=== PATIENT | female | born 1950 | race Caucasian/White ===

== ENCOUNTER 2020-10-05 12:08 | Outpatient (REF) | payer MEDICARE, SELFPAY ==
--- NOTE | 2020-10-05 | MM_ITS ---
EXAMINATION: MM SCREENING DIGITAL BREAST TOMOSYNTHESIS, BILATERAL CLINICAL INFORMATION: Screening. Asymptomatic. No prior surgery. The lifetime risk of breast cancer based on the Tyrer-Cuzick Model is 3%. COMPARISON: Mammography: 02/22/2019, 02/18/2018, 02/17/2017 TECHNIQUE: Digital breast tomosynthesis is performed in both the craniocaudal and mediolateral oblique views along with computer-aided detection (CAD). Synthesized 2D images are generated from the tomosynthesis. Additional bilateral exaggerated CC views are provided. FINDINGS: There are scattered areas of fibroglandular density (ACR BI-RADS breast composition Category b). The right breast is unremarkable. There is no interval mass or architectural abnormality or developing density pressures calcifications. The bilateral axilla and skin contours are unremarkable. The left MLO tomography shows some focal radiating lines along posterior nipple line 6 cm from nipple. No correlate on CC view. Patient will be recalled to exclude architectural abnormality. MM/MM tomosynthesis screening BI IMPRESSION: 1. Left: Question early architectural changes mid left breast limited to MLO view, possibly artifact. 2. Right: No mammographic evidence of malignancy. ASSESSMENT: BI-RADS 0: Incomplete - Need Additional Imaging Evaluation RECOMMENDATION: 1. Additional views of the left breast (3-D spot MLO, 3-D ML). 2. Targeted ultrasound if warranted after review of the additional views. 3. Radiology department staff will contact the patient for additional imaging. This patient's information was entered into a reminder system with a target due date for their next mammogram.
== END 2020-10-05 12:09 | disposition home or self-care (01) ==
LOC: HO.MAMMO 12:08
PROVIDERS: PCP Family Medicine; Visit Provider Family Medicine
DX: Z12.31 Encounter for screening mammogram for malignant neoplasm of breast (principal)
CPT/HCPCS: 77063; 77067

== ENCOUNTER 2020-10-15 09:27 | Outpatient (REF) | payer MEDICARE, SELFPAY ==
--- NOTE | 2020-10-15 | MM_ITS ---
EXAMINATION: MM DIAGNOSTIC DIGITAL BREAST TOMOSYNTHESIS, LEFT CLINICAL INFORMATION: Recall from screening for question of early architectural changes mid left breast limited to MLO view, possibly summation artifact. No correlate on CC view. TC score 3%. COMPARISON: Mammography: 10/05/2020, 02/22/2019 TECHNIQUE: Digital breast tomosynthesis is performed. 2D images are generated from the tomosynthesis. The following views are obtained: Spot MLO, standard ML, spot ML. FINDINGS: There are scattered areas of fibroglandular density (ACR BI-RADS breast composition Category b). Additional views show no architectural abnormality. There is no mass or developing density. Results are discussed with the patient at time of visit, using an deaf interpreter. MM/MM tomosynthesis added views L IMPRESSION: Additional views are unremarkable. No significant changes from prior studies. ASSESSMENT: BI-RADS 1: Negative RECOMMENDATION: Routine annual mammography screening. This patient's information was entered into a reminder system with a target due date for their next mammogram.
== END 2020-10-15 09:28 | disposition home or self-care (01) ==
LOC: HO.MAMMO 09:27
PROVIDERS: PCP Family Medicine; Visit Provider Family Medicine
DX: R92.8 Other abnormal and inconclusive findings on diagnostic imaging of breast (principal)
CPT/HCPCS: 77061; 77062; 77065; 77066

== ENCOUNTER 2021-03-07 12:46 | Outpatient (REF) | payer MEDICARE, SELFPAY ==
--- NOTE | ~2021-03-07 | XR_ITS ---
EXAMINATION: XR LUMBOSACRAL SPINE WITH OBLIQUES CLINICAL INFORMATION: Low back pain COMPARISON: None TECHNIQUE: 5 views of the lumbar spine FINDINGS: There are 5 nonrib-bearing lumbar-type vertebral bodies. No acute visible fracture or dislocation. Mild dextrocurvature of the thoracolumbar spine. Mild multilevel degenerative changes with disc space narrowing, osteophyte formation, and lumbar spine facet arthropathy. Vertebral body heights and disc spaces are otherwise maintained. Posterior elements are intact. Paraspinal soft tissues are unremarkable. Bowel gas is unremarkable. Atherosclerotic calcifications of the aorta. Phlebolith are noted. XR/XR lumbar spine 4V min IMPRESSION: 1. No acute visible fracture or dislocation. 2. Multilevel degenerative changes with dextrocurvature of the thoracolumbar spine.
== END 2021-03-07 12:47 | disposition home or self-care (01) ==
LOC: HO.XRAY 12:46
PROVIDERS: PCP Family Medicine; Visit Provider Family Medicine
DX: M54.5 Low back pain (principal)
CPT/HCPCS: 72110

== ENCOUNTER → 2021-03-18 12:49 | Outpatient (BNVA) | payer MEDICARE, SELFPAY | PROVIDERS: PCP Family Medicine; Visit Provider Surgery | DX: N64.9 Disorder of breast, unspecified (principal) | CPT/HCPCS: 99202 ==

== ENCOUNTER 2021-04-18 12:28 | Outpatient (REF) | payer MEDICARE, SELFPAY ==
[2021-04-18 12:37] VITALS: BP 166/65; PULSE 69; RESP 16; TEMP 36.6; O2SAT 99
[2021-04-18 12:51] VITALS: BMI 24.7
--- NOTE | 2021-04-18 13:28 | W.PM.OPN ---
Operative Note Operative Note Date of Service: 04/18/21 Narrative: Preop diagnosis: Left nipple ulcerating lesion Postop diagnosis: The same Procedure: Biopsy, incisional, of ulcerating lesion, left nipple under local anesthesia Surgeon: Charanjit Mathews MD The patient is a 17-year-old female with note of an ulcerating lesion on the nipple, about 2 cm in size. This had been going on for about 3 months she says. She understood technique of biopsy under local anesthesia. She was aware of the risks, benefits, and alternatives. She was brought to the minor procedure room and placed supine. The area of the nipple the left was prepped and draped. Again as described on the progress notes, she had an ulcerating nipple lesion. about 2 cm. I infiltrated planned area of excisional biopsy using lidocaine 1%. I then proceeded to do a wedge biopsy of the lesion, about 5 mm in size and this was sent as a specimen. I reapposed the incision with interrupted absorbable 4-0 sutures. A Band-Aid was then applied She tolerated the procedure well. There were no complications noted. She was instructed wound care. I will see her in the office for a follow-up visit.
--- NOTE | 2021-04-18 13:31 | PM.OP ---
Brief Operative Note Date of Service: 04/18/21 Pre-op diagnosis: Left nipple lesion Post-op diagnosis: same Procedure: Incisional biopsy, left nipple lesion under local anesthesia Surgeon: Charanjit Mathews MD Was an Art Class Model used for this Procedure?: No Estimated blood loss (mL): 1 Pathology: other (Left nipple lesion biopsy) Condition: stable Disposition: other (Home)
== END 2021-04-18 12:29 | disposition home or self-care (01) ==
LOC: HO.MS 12:28
PROVIDERS: PCP Family Medicine; Visit Provider Surgery
PROC: (CPT 19101; principal; 2021-04-18 13:00)
DX: C50.012 Malignant neoplasm of nipple and areola, left female breast (principal)
CPT/HCPCS: 19101; 36415; 88307; 88341; 88342; 88360; 88374

== ENCOUNTER → 2021-04-25 10:47 | Outpatient (BNVA) | payer MEDICARE, SELFPAY | PROVIDERS: PCP Family Medicine; Referring Provider Family Medicine; Visit Provider Surgery | DX: C50.912 Malignant neoplasm of unspecified site of left female breast (principal) | CPT/HCPCS: 99212 ==

== ENCOUNTER 2021-04-29 12:54 | Outpatient (REF) | payer MEDICARE, SELFPAY ==
--- NOTE | ~2021-04-29 | MM_ITS ---
EXAMINATION: MM DIAGNOSTIC DIGITAL BREAST TOMOSYNTHESIS, LEFT CLINICAL INFORMATION: Left nipple biopsy 04/18/2021 positive for moderately differentiated adenocarcinoma (morphologic and in near no phenotypic features are consistent with grade 1-2 invasive ductal carcinoma of the breast. No epidermal involvement is seen). COMPARISON: Mammography: 10/15/2020, 10/05/2020, 09/24/2018, 02/17/2017 TECHNIQUE: Digital breast tomosynthesis is performed in both the craniocaudal and mediolateral oblique views along with computer-aided detection (CAD). Synthesized 2D images are generated from the tomosynthesis. Additional views are obtained: Left MLO, spot left CC, spot left MLO. FINDINGS: There are scattered areas of fibroglandular density (ACR BI-RADS breast composition Category b). Parenchymal pattern is similar to prior studies. There is no developing density or interval mass or architectural abnormality. No abnormal calcifications. The skin contours are smooth. Results are provided to the patient at time of visit by the technologist. MM/MM tomosynthesis diagnostic LT IMPRESSION: No significant changes from prior exams. No interval suspicious change. ASSESSMENT: BI-RADS 6: Known Biopsy-Proven Malignancy RECOMMENDATION: Continue with surgical services manager management plan.
== END 2021-04-29 12:55 | disposition home or self-care (01) ==
LOC: HO.MAMMO 12:54
PROVIDERS: Visit Provider Surgery
DX: C50.912 Malignant neoplasm of unspecified site of left female breast (principal)
CPT/HCPCS: 77061; 77065

== ENCOUNTER → 2021-05-09 14:39 | Outpatient (BNVA) | payer MEDICARE, SELFPAY | PROVIDERS: PCP Family Medicine; Referring Provider Family Medicine; Visit Provider Surgery | DX: C50.912 Malignant neoplasm of unspecified site of left female breast (principal) | CPT/HCPCS: 99212 ==

== ENCOUNTER → 2021-05-17 13:05 | Outpatient (BNV) | payer MEDICARE, OTHER, SELFPAY | PROVIDERS: PCP Family Medicine; Visit Provider Internal Medicine | DX: C50.912 Malignant neoplasm of unspecified site of left female breast (principal) | CPT/HCPCS: 99205; 99212; 99214; G2211 ==

== ENCOUNTER 2021-05-22 14:25 | Outpatient (REF) | payer MEDICARE, SELFPAY ==
--- NOTE | ~2021-05-22 | MR_ITS ---
EXAMINATION: MR BREAST WITHOUT AND WITH CONTRAST, BILATERAL CLINICAL INFORMATION: Invasive adenocarcinoma of left nipple/breast. COMPARISON: Diagnostic mammography 04/29/2021, and prior TECHNIQUE: Imaging was performed with a dedicated breast coil. Prior to the administration of contrast, bilateral axial T1 and bilateral axial T2 weighted sequences were obtained. After the uneventful administration of?6.5 mL of Gadavist, dynamic contrast-enhanced VIBRANT series through the breasts in the axial plane were performed. Subtracted images were performed and reviewed. A delayed sagittal sequence through both breasts was acquired. Additionally, CAD post-processing, including maximum intensity projections, 3-D reconstructions and kinetic analysis, were performed an independent workstation and reviewed by the interpreting radiologist is a portion of this exam. FINDINGS: The breasts are comprised of scattered fiber glandular densities. The tissue undergoes mild background enhancement. LEFT BREAST: The left nipple is markedly enlarged and hyperemic when compared with the right. The left nipple areolar complex approaches 3 cm in diameter with abnormal skin thickening and enhancement. Abnormal nonmass enhancement extends 1 cm beneath the nipple. The left nipple is also retracted on sagittal reformats. The area is T2 bright with washout enhancement consistent with known invasive adenocarcinoma. On some sequences there appears to be a supernumerary nipple 10 mm medial to the known cancer. This is not present on T1-weighted sequence and is not present on recent mammography indicating an MR artifact. No additional left breast lesions are seen. No retroareolar duct ectasia. The left axillary lymph nodes are morphologically normal. RIGHT BREAST: There is an oval 6 mm T2 dark enhancing right breast mass at 10:00 (series 100 image 63/126) projecting 3.5 cm from the nipple. Mass is indeterminant on MRI.. The mass is closely adjacent a vessel. There is a potential mammographic correlate (10/05/2020 MLO kymberly series image 11/56); a reniform mass with a fatty hilum likely an intramammary node. This appearance is stable compared with 2019. There is no suspicious internal mammary chain or axillary adenopathy. Limited views of the chest and abdomen are unremarkable. MR/MR breast BI wo/w con IMPRESSION: 1. A known invasive breast cancer involving the left nipple areolar complex measuring 3 cm in diameter extending 1 cm beneath the nipple areolar complex with nipple retraction. 2. A 6 mm right breast mass at 10:00 3.5 cm from the nipple. A stable mammographic correlate has the appearance of an intramammary lymph node. ASSESSMENT: LEFT BREAST: BI-RADS Category 6, known malignancy. RIGHT BREAST: BI-RADS Category 2, benign finding. RECOMMENDATIONS: Appropriate surgical management of known left breast cancer.
--- NOTE | 2021-08-13 10:23 | ECG_ITS ---
Test Reason : tachycardia Blood Pressure : / mmHG Vent. Rate : 107 BPM Atrial Rate : 107 BPM P-R Int : 124 ms QRS Dur : 082 ms QT Int : 304 ms P-R-T Axes : 041 -17 074 degrees QTc Int : 405 ms Sinus tachycardia with Premature atrial complexes Abnormal ECG When compared with ECG of 06-FEB-2016 15:30, Premature atrial complexes are now Present Referred By: Milagro Humphrey Electronically Signed By:ELOISA DOWLING MD
== END 2021-05-22 14:26 | disposition home or self-care (01) ==
LOC: HO.MRI 14:25
PROVIDERS: Visit Provider Internal Medicine
DX: C50.912 Malignant neoplasm of unspecified site of left female breast (principal)
CPT/HCPCS: 77049; 93005; A9585

== ENCOUNTER 2021-05-24 06:45 | Day surgery (SDC) | payer MEDICARE, SELFPAY ==
[2021-05-21 10:07] VITALS: BMI 25.4
--- NOTE | 2021-05-23 09:26 | HO.ANESPROP2 ---
HPI - Anesthesia Eval Consult details Narrative: 70yo F for Left Sentinal Node Biopsy, Breast Lumpectomy PMFSH Active Problems Active Problems: All Active Problems (Updated 05/21/21 @ 10:09 by Chiquita Beckham, ZAIN) Invasive ductal carcinoma of left breast (Acute) Nipple lesion (Acute) Past Medical History Medical History COVID-19 vaccine series completed Diabetes High cholesterol Hypertension Invasive ductal carcinoma of left breast Nipple lesion Family History Family History (Updated 05/17/21 @ 15:46 by Doreen Chang, ZAIN) Maternal Aunt Pancreatic cancer Maternal Aunt No problems noted. Maternal Aunt No problems noted. Family/Other Metastatic breast cancer Surgical History Surgical History Hx of left breast biopsy Social History Social History Are you a primary health care facilities inspector to a significant other at home: No Do you presently have visiting nurse or other home services: No Alcohol intake: never Patient Tobacco Use Status: Never used Tobacco Meds Allergies Allergy/AdvReac Type Severity Reaction Status Date / Time penicillin V Allergy Intermediate Rash Verified 05/24/21 07:43 Home Medications Medication Instructions Recorded Confirmed Last Taken Type acetaminophen 650 mg 650 mg PO Q8H 03/18/21 05/21/21 Unknown History tablet,extended release (Tylenol Arthritis Pain) amitriptyline 10 mg tablet 10 mg PO BEDTIME 03/18/21 05/21/21 Unknown History ascorbate calcium (vitamin C) 500 500 mg PO DAILY 03/18/21 05/21/21 Unknown History mg tablet atorvastatin 80 mg tablet 80 mg PO BEDTIME 03/18/21 05/21/21 Unknown History baclofen 10 mg tablet 10 mg PO DAILY 03/18/21 05/21/21 Unknown History cholecalciferol (vitamin D3) 25 25 mcg PO DAILY 03/18/21 05/21/21 Unknown History mcg (1,000 unit) capsule docusate sodium 100 mg capsule 100 mg PO DAILY 03/18/21 05/21/21 Unknown History (DOK) gabapentin 100 mg capsule 100 mg PO TID 03/18/21 05/21/21 Unknown History lisinopril 10 mg tablet 10 mg PO DAILY 03/18/21 05/21/21 Unknown History multivitamin 1 tab PO DAILY 03/18/21 05/21/21 Unknown History omeprazole 20 mg capsule,delayed 20 mg PO DAILY PRN 03/18/21 05/21/21 05/24/21 06:00 History release Exam Exam Date and Time: May 23, 2021 0926 Height,Weight and Vital Signs: Height 5 ft 4 in Weight 67.132 kg Pertinent Lab Results Pertinent Lab Results: Laboratory Tests 05/17/21 05/17/21 13:53 13:53 WBC 7.1 Hgb 13.8 Hct 42.5 Plt Count 253 Sodium 138 Potassium 4.1 Chloride 106 Carbon Dioxide 20 L BUN 17 H Creatinine 0.73 Assessment and Plan Assessment Anesthesia Assessment: Chart Reviewed
[2021-05-24] VITALS (7 sets, daily range): BP systolic 129–154; BP diastolic 61–72; PULSE 70–105; RESP 16–20; TEMP 36.3–36.5; O2SAT 95–100
--- NOTE | ~2021-05-24 | NM_ITS ---
EXAMINATION: NM LYMPH SCINTIGRAPHY CLINICAL INFORMATION: Basal ductal carcinoma of the left breast. COMPARISON: Breast MRI of 05/22/2021 and mammography of 04/29/2021 TECHNIQUE: 4 intradermal injections of 99M technetium tilmanocept for a total dose of 0.5 mCi in 4 divided doses with intradermal injections in the periareolar regions. FINDINGS: No visualization of lymph nodes is seen out to 50 minutes status post injection and this is with breast massage of definite intradermal injections with raising of wheals at injection sites. NM/NM sentinel node w imaging IMPRESSION: Nonvisualization of sentinel lymph nodes.
[2021-05-24] MEDS: Lidocaine 4 % Cream KIT 1 APPL TOPICAL (07:12)
[2021-05-24 07:50] LABS: Glucose, Whole Blood 115 mg/dL (60-115)
[2021-05-24] MEDS: Lactated Ringers 1,000 ML 100 ML IVCONT (07:59)
--- NOTE | 2021-05-24 11:54 | P.OP_ITS ---
Operative Note Operative Note Date of Service: 05/24/21 Narrative: Preop diagnosis: Invasive adenocarcinoma, left breast Postop diagnosis: The same Procedure: Lumpectomy, with excision of the entire nipple-areolar complex, with exploration of left axilla Surgeon: Charanjit Mathews MD Linoleum Layer Helper: JUNIOR Issa student The patient is a 70-year-old female who had a small, ulcerating lesion on the left nipple-areolar complex. Biopsies of this had shown an invasive adenocarci noma. MRI and mammogram did not reveal any breast mass. I had therefore schedule her for lumpectomy to excise the nipple-areolar complex, and sentinel biopsy. I reviewed with her the technique of this procedure. I explained the risks, benefits, and alternatives. She was brought to the operating room and placed supine the table under general anesthesia via laryngeal mask airway. The left arm was abducted to expose the axilla well. The patient had undergone lymph node mapping earlier in the radiologist week. Reviewed the films and there was no axillary lymph node that up with injection of the radionucleotide tracer. A surgical time-out was done. The patient received cefazolin 2 g IV preoperatively. The planned line of incision was infiltrated with lidocaine 1%. I then made a generous elliptical incision on the skin of the left breast surrounding the nipple-areolar complex using a blade 15. This was carried down through the full- thickness of the skin and subcutaneous fat and we dissected through the breast tissue along this incision. We continued to dissect with electrocautery through the breast tissue ensure that we were way past the deeper aspect of the nipple area complex. I palpated the surrounding breast tissue as we deepened the incision make sure that there was no lesion that may be missed. I excised the breast tissue around this nipple or complex and posteriorly, making sure that we had 1st margins. This was sent for immediate gross exam. I had marked the lateral and medial margins with sutures. then observed for been stasis. I cauterized oozing areas. While waiting for the immediate gross examination, I closed the deep breast tissue deck steps sutures. I also closed the deep subdermal layer with Dexon 3-0 interrupted sutures. Skin closure was achieved with a Dexon 4-0 subcuticular running stitch. The incision was about 9.5 cm long. We then changed gloves and we changed the entire instrument set up. I then used the gamma probe to examine the axilla. I scanned the entire axilla and could not really get any elevated readings. We spent an and extended period of time scanning the entire axilla without any hint of any significant readings on the gamma probe. I therefore decided to make a short incision on the skin transversely just lateral to the edge of the pectorals muscle using a blade 15. I carried this incision down to full-thickness of the skin and subcutaneous fat with electrocautery. I then proceeded to do blunt dissection of the fascia to allow me to examine the axillary fat in this area. I again I used the gamma probe to scan this entire area to see if we get any elevated counts. We again spent an extended period time looking for any elevated counts with the gamma probe and there was no area on the axilla that we had any significant readings on the counter. We even switched from a wireless probe to a wired one in case there was any difference with the sensitivities. After some period of time, I irrigated the excision on the axilla. I closed the deep subcutaneous layer with Dexon 3-0 interrupted sutures. Skin closure was achieved with Dexon 4-0 subcuticular running stitch I infiltrated both incisions with lidocaine 1% generously. I then applied Steri-Strips. Thick dressings were applied. The procedure was then completed The patient tolerated procedure well. There were no complications noted. Initial fine counts of sponges and instruments were correct. Limited blood loss about 20 cc The patient was extubated without difficulty and transferred to the recovery room with stable vital signs I will await for the final path report. If this confirms an adenocarcinoma, I will discuss the option of the plan for an axillary dissection on the left axilla with the patient. Breast [place] Node Biopsy Substrate(s) used for sentinel node biopsy in the non-neoadjuvant setting: Radiotracer All palpably suspicious nodes were removed, if present: N/A If clips were placed in pathology-involved nodes, those nodes were identified and removed: N/A General Surg. - Synoptic Notes Breast [place] Node Biopsy Substrate(s) used for sentinel node biopsy in the non-neoadjuvant setting: Radiotracer All palpably suspicious nodes were removed, if present: N/A If clips were placed in pathology-involved nodes, those nodes were identified and removed: N/A
--- NOTE | 2021-05-24 12:08 | PM.OP ---
Brief Operative Note Date of Service: 05/24/21 Pre-op diagnosis: Left breast adenocarcinoma Post-op diagnosis: same Procedure: Lumpectomy, excision of the nipple-areolar complex on the left breast, with exploration of the axilla to identify any sentinel lymph node Surgeon: Charanjit Mathews MD Anesthesia: GLMA Was an Primary Education Professor used for this Procedure?: No Estimated blood loss (mL): 25 Pathology: other (Left breast mass) Condition: stable Disposition: PACU
--- NOTE | 2021-05-24 13:41 | PC.NURSE ---
Discharge instructions provided by Jai Bryant RN with assistance of [facility] [employer]
== END 2021-05-24 13:42 ==
LOC: HO.SSS 06:46
PROVIDERS: PCP Family Medicine; Visit Provider Surgery
PROC: (CPT 19301; 2021-05-24 10:00)
DX: C50.012 Malignant neoplasm of nipple and areola, left female breast (principal); Z17.0 Estrogen receptor positive status [ER+]
CPT/HCPCS: 19301; 17999; 78195; 82947; 88307; 88329; 88341; 88342; A9520; J0690; J1100; J2250; J2405; J3010

== ENCOUNTER → 2021-06-05 15:37 | Outpatient (BNVA) | payer MEDICARE, SELFPAY | PROVIDERS: PCP Family Medicine; Referring Provider Family Medicine; Visit Provider Surgery | DX: C50.912 Malignant neoplasm of unspecified site of left female breast (principal) | CPT/HCPCS: 99212 ==

== ENCOUNTER → 2021-07-04 15:36 | Outpatient (BNVA) | payer MEDICARE, SELFPAY | PROVIDERS: PCP Family Medicine; Visit Provider Surgery | DX: C50.012 Malignant neoplasm of nipple and areola, left female breast (principal); Z88.1 Allergy status to other antibiotic agents; Z88.0 Allergy status to penicillin | CPT/HCPCS: 99212 ==

== ENCOUNTER → 2021-08-08 11:22 | Outpatient (BNVA) | payer MEDICARE, SELFPAY | PROVIDERS: Visit Provider Surgery | DX: C50.012 Malignant neoplasm of nipple and areola, left female breast (principal); E11.9 Type 2 diabetes mellitus without complications; I10 Essential (primary) hypertension; E78.00 Pure hypercholesterolemia, unspecified; R53.83 Other fatigue; Z88.1 Allergy status to other antibiotic agents; Z88.0 Allergy status to penicillin; Z79.899 Other long term (current) drug therapy | CPT/HCPCS: 99212 ==

== ENCOUNTER 2021-10-15 15:50 | Outpatient (REF) | payer MEDICARE, SELFPAY ==
--- NOTE | ~2021-10-15 | MM_ITS ---
EXAMINATION: MM SCREENING DIGITAL BREAST TOMOSYNTHESIS, RIGHT CLINICAL INFORMATION: Due for yearly. Recent left lumpectomy and radiation and chemotherapy for left breast cancer. No prior right breast surgery. COMPARISON: Mammography: 10/05/2020, 02/22/2019, 02/18/2018 TECHNIQUE: Digital breast tomosynthesis is performed in both the craniocaudal and mediolateral oblique views along with computer-aided detection (CAD). Synthesized 2D images are generated from the tomosynthesis. FINDINGS: There are scattered areas of fibroglandular density (ACR BI-RADS breast composition Category b). There are no significant masses, abnormal calcifications, or other abnormalities. Parenchymal pattern is similar to prior studies. There is no developing density or architectural abnormality. The axilla and skin contours are unremarkable. No significant changes. MM/MM tomosynthesis screening RT IMPRESSION: No mammographic evidence of malignancy. ASSESSMENT: BI-RADS 1: Negative RECOMMENDATION: Routine annual mammography screening. This patient's information was entered into a reminder system with a target due date for their next mammogram.
== END 2021-10-15 15:51 | disposition home or self-care (01) ==
LOC: HO.MAMMO 15:50
PROVIDERS: Visit Provider Family Medicine
DX: Z12.31 Encounter for screening mammogram for malignant neoplasm of breast (principal)
CPT/HCPCS: 77063; 77067

== ENCOUNTER 2021-11-22 14:12 | Outpatient (REF) | payer MEDICARE, SELFPAY ==
--- NOTE | ~2021-11-22 | MM_ITS ---
EXAMINATION: BONE DENSITOMETRY CLINICAL INDICATION: Hormonal therapy. COMPARISON: None (current study represents initial baseline exam). TECHNIQUE: Using a Nubity DXA System (software version: 13.1) manufactured by [employer], dual-energy x-ray absorptiometry was performed of the lumbar spine and left hip. The images are of good technical quality. Summary results are attached. FINDINGS: AP SPINE L1-L4: BMD 1.025 g/cm2, Z-score 0.3, T-score -1.3, osteopenia. LEFT FEMUR, NECK: BMD 0.895 g/cm2, Z-score 0.6, T-score -1.0, normal. LEFT FEMUR, TOTAL: BMD 0.945 g/cm2, Z-score 0.9, T-score -0.5, normal. IDENTIFIED RISK FACTORS: Menopause. HISTORY OF FRACTURE: None listed. MEDICATIONS: Vitamin D. MM/XR DEXA axial skeleton IMPRESSION: 1. DIAGNOSIS: Osteopenia based on the lowest T-score value of -1.3 in the lumbar spine applying World Health Organization criteria. 2. 10-YEAR FRACTURE RISK PREDICTION, FRAX: Major osteoporotic fracture (clinical spine, forearm, hip or shoulder) 5.0%. Hip fracture 0.5%. 3. Treatment Recommendations: NOF guidelines recommend consideration for treatment in postmenopausal women and men age 50 and older presenting with the following: -A hip or vertebral (clinical or morphometric) fracture. -T-score less than or equal to -2.5 at the femoral neck or spine after appropriate evaluation to exclude secondary causes. -Low bone mass at the hip or spine and a 10-year fracture probability by FRAX of greater than or equal to 3% for hip fracture or greater than or equal to 20% for major osteoporotic fracture based on the [place] adapted WHO algorithm. 4. Other Recommendations: All treatment decisions require clinical judgment and consideration of individual patient factors, including patient preferences, comorbidities, previous drug use, risk factors not captured in the FRAX model (e.g. frailty, falls, vitamin D deficiency, increased bone turnover, interval significant decline in bone density) and possible under or overestimation of fracture risk by FRAX. Additional medical evaluation for secondary cause of low bone mineral density may be appropriate. FUTURE SCAN RECOMMENDATION: People with diagnosed cases of osteoporosis or at high risk for fracture should have regular bone mineral density tests. For patients eligible for Medicare, routine testing is allowed once every 2 years. The testing frequency can be increased to one year for patients who have rapidly progressing disease, those who are receiving or discontinuing medical therapy to restore bone mass, or have additional risk factors.
== END 2021-11-22 14:13 | disposition home or self-care (01) ==
LOC: HO.MAMMO 14:12
PROVIDERS: Visit Provider Internal Medicine
DX: Z13.820 Encounter for screening for osteoporosis (principal); M85.80 Other specified disorders of bone density and structure, unspecified site; Z78.0 Asymptomatic menopausal state; Z79.899 Other long term (current) drug therapy
CPT/HCPCS: 77080

== ENCOUNTER 2021-12-06 14:03 | Outpatient (REF) | payer MEDICARE, SELFPAY ==
[2021-12-11 16:42] LABS: HPV mRNA E6/E7 rflx Not Detected (Not Detected)
== END 2021-12-06 14:04 | disposition home or self-care (01) ==
LOC: HO.LAB 14:03
PROVIDERS: Visit Provider Advanced Practice Midwife
DX: Z01.419 Encounter for gynecological examination (general) (routine) without abnormal findings (principal); Z11.51 Encounter for screening for human papillomavirus (HPV)
CPT/HCPCS: 87624; 88142

== ENCOUNTER 2022-03-17 15:00 | Outpatient (REF) | payer OTHER, SELFPAY ==
--- NOTE | ~2022-03-17 | XR_ITS ---
EXAMINATION: XR SHOULDER, RIGHT XR LUMBAR SPINE CLINICAL INFORMATION: Right shoulder pain and back pain. COMPARISON: Lumbar spine study of March 07, 2021 TECHNIQUE: Three-view lumbar spine and four-view right shoulder. FINDINGS: RIGHT SHOULDER: There is no evidence of acute fracture or dislocation of the right shoulder. Glenohumeral joint is maintained without significant spurring. No calcific tendinitis appreciated. There is mild spurring and narrowing of the right acromioclavicular joint. LUMBAR SPINE: There are 5 non-rib bearing lumbar vertebrae. There is moderate narrowing of the L5-S1 joint space with bilateral facet arthropathy at L5-S1, more significant on the right. No acute fracture, spondylolisthesis, or spondylolysis is appreciated. Degenerative marginal spurring is seen at the L2-L3 and L3-L4 disc space levels. Sacroiliac joints are unremarkable. XR/XR shoulder RT min 2V IMPRESSION: No significant abnormality of the right shoulder appreciated other than some mild degenerative change of the acromioclavicular joint. Degenerative change of the lumbar spine, most significant at the L5-S1 level. Findings are stable compared to study of March 07, 2021.
--- NOTE | ~2022-03-17 | XR_ITS ---
EXAMINATION: XR SHOULDER, RIGHT XR LUMBAR SPINE CLINICAL INFORMATION: Right shoulder pain and back pain. COMPARISON: Lumbar spine study of March 07, 2021 TECHNIQUE: Three-view lumbar spine and four-view right shoulder. FINDINGS: RIGHT SHOULDER: There is no evidence of acute fracture or dislocation of the right shoulder. Glenohumeral joint is maintained without significant spurring. No calcific tendinitis appreciated. There is mild spurring and narrowing of the right acromioclavicular joint. LUMBAR SPINE: There are 5 non-rib bearing lumbar vertebrae. There is moderate narrowing of the L5-S1 joint space with bilateral facet arthropathy at L5-S1, more significant on the right. No acute fracture, spondylolisthesis, or spondylolysis is appreciated. Degenerative marginal spurring is seen at the L2-L3 and L3-L4 disc space levels. Sacroiliac joints are unremarkable. XR/XR lumbar spine 2-3V IMPRESSION: No significant abnormality of the right shoulder appreciated other than some mild degenerative change of the acromioclavicular joint. Degenerative change of the lumbar spine, most significant at the L5-S1 level. Findings are stable compared to study of March 07, 2021.
== END 2022-03-17 15:01 | disposition home or self-care (01) ==
LOC: HO.XRAY 15:00
PROVIDERS: PCP Family Medicine; Visit Provider Family Medicine
DX: M54.50 Low back pain, unspecified (principal); M25.511 Pain in right shoulder
CPT/HCPCS: 72100; 73030

== ENCOUNTER → 2022-03-19 12:04 | Outpatient (BNVA) | payer OTHER, SELFPAY | PROVIDERS: PCP Family Medicine; Visit Provider Surgery | DX: C50.912 Malignant neoplasm of unspecified site of left female breast (principal); Z79.811 Long term (current) use of aromatase inhibitors; Z92.3 Personal history of irradiation; Z92.21 Personal history of antineoplastic chemotherapy | CPT/HCPCS: 99212 ==

== ENCOUNTER → 2022-10-08 13:53 | Outpatient (BNVA) | payer OTHER, SELFPAY | PROVIDERS: PCP Family Medicine; Visit Provider Surgery | DX: C50.912 Malignant neoplasm of unspecified site of left female breast (principal); Z79.811 Long term (current) use of aromatase inhibitors | CPT/HCPCS: 99212 ==

== ENCOUNTER 2022-10-17 14:43 | Outpatient (REF) | payer OTHER, SELFPAY ==
--- NOTE | ~2022-10-17 | MM_ITS ---
EXAMINATION: MM DIAGNOSTIC DIGITAL BREAST TOMOSYNTHESIS, BILATERAL CLINICAL INFORMATION: Due for yearly. Left lumpectomy, radiation, chemotherapy for anterior left breast cancer. COMPARISON: Mammography: 10/15/2021, 04/29/2021, 10/15/2020, 10/05/2020, 02/22/2019 TECHNIQUE: Digital breast tomosynthesis is performed in both the craniocaudal and mediolateral oblique views along with computer-aided detection (CAD). Synthesized 2D images are generated from the tomosynthesis. Additional views are obtained: Left CC, magnification left CC, magnification left ML x2. FINDINGS: There are scattered areas of fibroglandular density (ACR BI-RADS breast composition Category b). There are post therapy changes left breast with mild reduced breast size and minor scarring. Neither breast shows interval mass or architectural abnormality or abnormal calcifications. The axilla are unremarkable. No significant changes. Results are provided to the patient at time of visit by the technologist. MM/MM tomosynthesis diagnostic BI IMPRESSION: -No mammographic evidence of malignancy. -Post therapy changes left breast ASSESSMENT: BI-RADS 2: Benign RECOMMENDATION: Annual bilateral mammography. This patient's information was entered into a reminder system with a target due date for their next mammogram.
== END 2022-10-17 14:44 | disposition home or self-care (01) ==
LOC: HO.MAMMO 14:43
PROVIDERS: Visit Provider Family Medicine
DX: C50.912 Malignant neoplasm of unspecified site of left female breast (principal)
CPT/HCPCS: 77062; 77066

== ENCOUNTER 2023-01-23 12:32 | Outpatient (REF) | payer OTHER, SELFPAY ==
[2023-01-28 06:03] LABS: HPV mRNA E6/E7 rflx Not Detected (Not Detected)
== END 2023-01-23 12:33 | disposition home or self-care (01) ==
LOC: HO.LNP 12:32
PROVIDERS: PCP Family Medicine; Visit Provider Advanced Practice Midwife
DX: Z01.419 Encounter for gynecological examination (general) (routine) without abnormal findings (principal); Z11.51 Encounter for screening for human papillomavirus (HPV)
CPT/HCPCS: 87624; 88142

== ENCOUNTER 2023-04-20 14:43 | Outpatient (AMB) | payer OTHER, SELFPAY ==
--- NOTE | 2023-04-20 15:11 | A.OFFVIS_ITS ---
Intake Vital Signs 04/20/23 15:12 Height 5 ft 4 in Weight 148 lb 9.465 oz BMI 25.5 BP 143/88 H Blood Pressure Location Lt brachial Position Sitting Pulse 70 Intake Visit Reasons: Colonoscopy consult Intake Note: Lacey presents in office as a new.patient for a colonoscopy screening. PT CC: pt reports having constipation , diarrhea pt denies any other GI Issues Composition Worker Required: Yes Composition Worker Language: Turkmen Accompanied by: Self / Same As Patient Allergies penicillin V Allergy (Intermediate, Verified 04/20/23 15:12) Rash HPI Colonoscopy consult HPI Details 72-year-old female with past medical history of cervical intraepithelial neoplasia, left breast CA, hypercholesteremia, hypertension, diabetes, AFib is here today for initial consultation. Patient was sent to us for colorectal screening. Patient currently is having postprandial abdominal cramping and loose stools and then constipation for few days. Patient reports that for the most part she is constipated, however occasional loose stools after eating certain food. Patient denies any melena, hematochezia, unintentional weight loss or ribbon like stools. Patient denies any dyspepsia, dysphagia or odynophagia. PFSH Medical History Atrial fibrillation CHLOE II (cervical intraepithelial neoplasia II) COVID-19 vaccine series completed Diabetes High cholesterol History of left breast cancer Hypertension Invasive ductal carcinoma of left breast Nipple lesion Surgical History H/O LEEP History of lumpectomy of left breast Hx of left breast biopsy Family History Maternal Aunt Pancreatic cancer Maternal Aunt No problems noted. Maternal Aunt No problems noted. Family/Other Metastatic breast cancer Social History Household Members: None Housing: Apartment Are you a primary direct care provider to a significant other at home: No Do you presently have visiting nurse or other home services: No Alcohol intake: former Patient Tobacco Use Status: Never used Tobacco service: No Current occupational status: unemployed Female Reproductive History Menstrual Age of Menarche: 16 Physical Exam Vital Signs: Last Vital Signs Pulse 70 04/20/23 15:12 BP 143/88 H 04/20/23 15:12 BMI result Body Mass Index 25.5 Assessment & Plan Assessment & Plan (1) IBS (irritable bowel syndrome): Code(s): K58.9 - Irritable bowel syndrome without diarrhea Qualifiers: Irritable bowel syndrome type: with both diarrhea and constipation Qualified Code(s): K58.2 - Mixed irritable bowel syndrome Plan: Patient reports occasional postprandial loose stools, however she reports that she is mostly constipated. Patient can start taking MiraLax daily. I will see her in 5 weeks so we can discuss colonoscopy. (2) Screen for colon cancer: Code(s): Z12.11 - Encounter for screening for malignant neoplasm of colon Plan: Patient is constipated for the most part and is unable to move her bowels she also has occasional loose postprandially. Patient can take MiraLax daily and see if she can move her bowels better. I will see her in 5 weeks to re-evaluate and patient can be sent for colonoscopy. Please schedule colonoscopy in the mean time with patient. Currently were scheduling for July. Patient denies any respiratory or cardiac symptoms at this time. We will re-evaluate again in 5 weeks. Patient is agreeable to this plan and verbalizes understanding of instructions. She was given the opportunity to ask questions and all questions answered. Thank you for allowing me to participate in her care Medications: New polyethylene glycol 3350 (Miralax) 17 grams PO DAILY 510 grams 2RF Coding Level of Care Code New Pt Level 3 (37099) Diagnoses IBS (irritable bowel syndrome) K58.2 Irritable bowel syndrome type: with both diarrhea and constipation Screen for colon cancer Z12.11 Time Spent (min) 40 Comment 30 minutes spent with patient and additional 10 minutes spent reviewing her records
[2023-04-20 15:12] VITALS: BP 143/88; PULSE 70; BMI 25.5
== END 2023-04-20 15:39 | disposition home or self-care (01) ==
PROVIDERS: PCP Family Medicine; Visit Provider Nurse Practitioner Family
DX: K58.2 Mixed irritable bowel syndrome (principal); Z12.11 Encounter for screening for malignant neoplasm of colon
CPT/HCPCS: 99203

== ENCOUNTER → 2023-04-20 14:43 | Outpatient (BNVA) | payer OTHER, SELFPAY | PROVIDERS: PCP Family Medicine; Visit Provider Nurse Practitioner Family | DX: Z12.11 Encounter for screening for malignant neoplasm of colon (principal); K58.2 Mixed irritable bowel syndrome | CPT/HCPCS: 99202 ==

== ENCOUNTER 2023-05-26 15:12 | Outpatient (AMB) | payer OTHER, SELFPAY ==
--- NOTE | 2023-05-26 15:18 | A.OFFVIS_ITS ---
Intake Vital Signs 05/26/23 15:19 Height 5 ft 4 in Weight 150 lb 5.684 oz BMI 25.8 BP 121/69 Blood Pressure Location Lt brachial Position Sitting Pulse 70 Intake Visit Reasons: 5 week follow up Intake Note: Lacey presents in office as a est.patient for a 5week f/u for IBS. PT CC: pt reports having constipation/diarrhea pt denies any other GI Issues Dough Mixing Machine Operator Required: Yes Dough Mixing Machine Operator Language: Jewel Hole Cornerer Name: Kathie Accompanied by: Self / Same As Patient Allergies penicillin V Allergy (Intermediate, Verified 05/26/23 15:18) Rash HPI 5 week follow up HPI Details LAST VISIT: IBS (irritable bowel syndrome) Patient reports occasional postprandial loose stools, however she reports that she is mostly constipated. Patient can start taking MiraLax daily. I will see her in 5 weeks so we can discuss colonoscopy. Screen for colon cancer Patient is constipated for the most part and is unable to move her bowels she al so has occasional loose postprandially. Patient can take MiraLax daily and see if she can move her bowels better. I will see her in 5 weeks to re-evaluate and patient can be sent for colonoscopy. Please schedule colonoscopy in the mean time with patient. Currently were scheduling for July. Patient denies any respiratory or cardiac symptoms at this time. We will re-evaluate again in 5 weeks. Patient is agreeable to this plan and verbalizes understanding of instructions. She was given the opportunity to ask questions and all questions answered. ? Thank you for allowing me to participate in her care Plan Medications New polyethylene glycol 3350 (Miralax) 17 grams PO DAILY 510 grams 2RF TODAY'S VISIT Patient is here today for follow-up and to discuss going for colonoscopy. Patient denies any issues with anesthesia in the past. Patient states that she never had colonoscopy in the past. No family history of colorectal cancer. Patient states that her mom had pancreatic cancer. Patient denies any nausea or vomiting. Reports to have occasional constipation and diarrhea. Occasional postprandial loose stools, takes MiraLax every day states that she is able to move her bowels better. Patient denies any history of sleep apnea. Patient is on Eliquis for a headache. Patient denies any cardiac or respiratory symptoms. [facility] Medical History Atrial fibrillation CHLOE II (cervical intraepithelial neoplasia II) COVID-19 vaccine series completed Diabetes High cholesterol History of left breast cancer Hypertension Invasive ductal carcinoma of left breast Nipple lesion Surgical History H/O LEEP History of lumpectomy of left breast Hx of left breast biopsy Family History Maternal Aunt Pancreatic cancer Maternal Aunt No problems noted. Maternal Aunt No problems noted. Family/Other Metastatic breast cancer Social History Household Members: None Housing: Apartment Are you a primary account executive healthcare to a significant other at home: No Do you presently have visiting nurse or other home services: No Alcohol intake: former Patient Tobacco Use Status: Never used Tobacco service: No Current occupational status: unemployed Female Reproductive History Menstrual Age of Menarche: 16 Review of Systems Const Denies weight gain and Denies weight loss ENT Reports no additional complaints, Denies dysphagia and Denies odynophagia Card Reports no additional complaints Resp Reports no additional complaints GI Denies abdominal pain, Denies belching, Denies melena, Denies bloating, Denies change in bowel habits, Denies dysphagia, Denies excessive flatus, Denies dyspepsia, Denies heartburn, Denies diarrhea, Denies loose stools, Denies nausea, Denies odynophagia and Denies vomiting Musc Reports no additional complaints Neuro Reports no additional complaints Psych Reports no additional complaints Endo Reports no additional complaints Physical Exam Vital Signs: Last Vital Signs Pulse 70 05/26/23 15:19 BP 121/69 05/26/23 15:19 BMI result Body Mass Index 25.8 Const General: healthy appearing, no acute distress and well developed Nutritional Appearance: well nourished Orientation/consciousness: patient oriented x3 HEENT Head: Yes normal to inspection, Yes normocephalic and Yes atraumatic Face and sinus: Yes normal facial exam Mouth: Normal oral and palatal mucosa present Throat: Yes posterior oropharynx normal, Yes tonsils normal and Yes uvula midline Eyes General: appearance normal, both eyes and all related structures Neck Neck: Yes normal visual inspection, Yes full ROM and Yes trachea midline Thyroid: Thyroid normal Resp Effort & Inspection: normal respiratory effort, able to speak in complete sentences, no tracheal deviation and symmetric chest movement Auscultation: clear to auscultation bilaterally Cardio Rate: regular rate Heart sounds: S1 normal heart sound present and S2 normal heart sound present GI Inspection: Yes normal to inspection and No distended Palpation (GI): Soft to palpation, not firm, nontender and No hepatosplenomegaly present Auscultation: normal bowel sounds General: Yes no CVA tenderness Back/Spine/Pelvis Back: no CVA tenderness Skin General skin exam: elasticity normal, turgor normal and dry skin Neuro General: patient oriented x3 Psych Appearance: grossly normal Mental Status: mental status grossly normal Speech and movement: Normal speech and movement present Assessment & Plan Assessment & Plan (1) IBS (irritable bowel syndrome): Code(s): K58.9 - Irritable bowel syndrome without diarrhea Qualifiers: Irritable bowel syndrome type: with both diarrhea and constipation Qualified Code(s): K58.2 - Mixed irritable bowel syndrome Plan: Continue low FODMAP diet. Discussed with patient avoiding dietary triggers. Patient can take MiraLax daily. (2) Screen for colon cancer: Code(s): Z12.11 - Encounter for screening for malignant neoplasm of colon Plan: What to expect before during and after the procedure discussed with patient. Patient is to be little bit confused on what she can her medications with. We are booking right now for and of July beginning of August for procedures. Patient will return in 3 weeks before the procedure with her granddaughter who is a phlebotomist medical lab assistant to help her with understanding what to expect before du ring and after the procedure. Please call patient's clinical research monitor for clearance and for management of Eliquis. Patient does not have any cardiac or respiratory symptoms. Patient is agreeable to this plan and verbalizes understanding of instructions. She was given the opportunity to ask questions and all questions answered. Thank you for allowing me to participate in care Medications: New bisacodyl (Dulcolax (bisacodyl)) take 2 tabs at noon the day before your colonoscopy 10 mg (2 x 5 mg) PO ONCE 1 day 2 tabs 0RF Z12.11 - Encounter for screening for malignant neoplasm of colon polyethylene glycol 3350 (Miralax) As directed by gastroenterology department at [facility] 238 grams PO ONCE 238 grams 0RF Z12.11 - Encounter for screening for malignant neoplasm of colon Coding Level of Care Code Est Pt Level 3 (92132) Diagnoses IBS (irritable bowel syndrome) K58.2 Irritable bowel syndrome type: with both diarrhea and constipation Screen for colon cancer Z12.11 Time Spent (min) 30 Comment 20 minutes spent with patient and additional 10 minutes spent reviewing her records
[2023-05-26 15:19] VITALS: BP 121/69; PULSE 70; BMI 25.8
== END 2023-05-26 16:32 | disposition home or self-care (01) ==
PROVIDERS: PCP Family Medicine; Visit Provider Nurse Practitioner Family
DX: K58.2 Mixed irritable bowel syndrome (principal); Z12.11 Encounter for screening for malignant neoplasm of colon
CPT/HCPCS: 99213

== ENCOUNTER → 2023-05-26 15:12 | Outpatient (BNVA) | payer OTHER, SELFPAY | PROVIDERS: PCP Family Medicine; Visit Provider Nurse Practitioner Family | DX: Z01.818 Encounter for other preprocedural examination (principal); K58.2 Mixed irritable bowel syndrome | CPT/HCPCS: 99212 ==

== ENCOUNTER 2023-08-11 09:44 | Day surgery (SDC) | payer OTHER, SELFPAY ==
[2023-08-07 13:56] VITALS: BMI 25.7
--- NOTE | 2023-08-10 10:49 | HO.ANESPROP2 ---
Documented by User: Sara Black NP 08/10/23 12:08 HPI - Anesthesia Eval Consult details Narrative: 72yo F for Colonoscopy Eliquis for afib GI provider requested cardiac clearance - pending [facility] Active Problems Active Problems: All Active Problems (Updated 08/07/23 @ 13:56 by Chiquita Beckham, ZAIN) H/O LEEP (Acute) CHLOE II (cervical intraepithelial neoplasia II) (Acute) History of left breast cancer (Acute) Invasive ductal carcinoma of left breast (Chronic) Nipple lesion (Acute) Past Medical History Medical History (Updated 08/07/23 @ 13:56 by Chiquita Beckham RN) CHLOE II (cervical intraepithelial neoplasia II) History of left breast cancer Atrial fibrillation COVID-19 vaccine series completed High cholesterol Diabetes Hypertension Invasive ductal carcinoma of left breast Nipple lesion Family History Family History Maternal Aunt Pancreatic cancer Maternal Aunt No problems noted. Maternal Aunt No problems noted. Family/Other Metastatic breast cancer Surgical History Surgical History (Updated 07/07/23 @ 16:11 by Milagro Humphrey MD) H/O LEEP History of lumpectomy of left breast Hx of left breast biopsy Social History Household Members: None Housing: Apartment Are you a primary care mgr to a significant other at home: No Do you presently have visiting nurse or other home services: No Alcohol intake: former Patient Tobacco Use Status: Never used Tobacco Are you DNR?: No Advance Directives: No Advance Directives Information Provided: Yes Recently lost weight without trying: Yes How much weight loss: 2-13 pounds Eating poorly because of decreased appetite: No Nutrition screen score: 3 Nutrition Risks: No Nutritional Risk service: No Current occupational status: unemployed Meds Allergies Allergy/AdvReac Type Severity Reaction Status Date / Time penicillin V Allergy Intermediate Rash Verified 07/07/23 15:21 Home Medications Medication Instructions Recorded Confirmed Last Taken Type cholecalciferol (vitamin D3) 25 25 mcg PO DAILY 03/18/21 08/07/23 Unknown History mcg (1,000 unit) capsule docusate sodium 100 mg capsule 100 mg PO DAILY 03/18/21 08/07/23 Unknown History (DOK) multivitamin 1 tab PO DAILY 03/18/21 08/07/23 Unknown History omeprazole 20 mg capsule,delayed 40 mg PO DAILY PRN Acid Reflux 03/18/21 08/07/23 05/24/21 06:00 History release apixaban 5 mg tablet (Eliquis) 5 mg PO BID 09/03/21 08/07/23 Unknown History melatonin 10 mg tablet 10 mg PO BEDTIME PRN Insomnia 12/06/21 08/07/23 Unknown History calcium carbonate 500 mg calcium 500 mg PO BID 08/29/22 08/07/23 Unknown History (1,250 mg) tablet atorvastatin 40 mg tablet 40 mg PO BEDTIME 08/07/23 08/07/23 Unknown History carvedilol 6.25 mg tablet 6.25 mg PO BID 08/07/23 08/07/23 Unknown History gabapentin 300 mg capsule 300 mg PO TID 08/07/23 08/07/23 Unknown History lisinopril 10 mg tablet 10 mg PO DAILY 08/07/23 08/07/23 Unknown History Exam Height,Weight and Vital Signs: Height 5 ft 4 in Weight 68.039 kg Pertinent Lab Results Pertinent Lab Results: Laboratory Tests 07/07/23 15:26 WBC 5.6 Hgb 12.2 Hct 38.4 Plt Count 216 Sodium 139 Potassium 4.2 Chloride 105 Carbon Dioxide 25 BUN 10 Creatinine 0.68 Assessment and Plan Assessment Anesthesia Assessment: Chart Reviewed Documented by User: Ronnie Ace MD 08/11/23 12:43 [facility] Past Medical History Medical History (Updated 08/07/23 @ 13:56 by Chiquita Beckham RN) CHLOE II (cervical intraepithelial neoplasia II) History of left breast cancer Atrial fibrillation COVID-19 vaccine series completed High cholesterol Diabetes Hypertension Invasive ductal carcinoma of left breast Nipple lesion Family History Family History Maternal Aunt Pancreatic cancer Maternal Aunt No problems noted. Maternal Aunt No problems noted. Family/Other Metastatic breast cancer Family history of problems with anesthesia: No Surgical History Surgical History (Updated 07/07/23 @ 16:11 by Milagro Humphrey MD) H/O LEEP History of lumpectomy of left breast Hx of left breast biopsy History of Problems with Anesthesia: No Social History Household Members: None Housing: Apartment Are you a primary care mgr to a significant other at home: No Do you presently have visiting nurse or other home services: No Alcohol intake: former Patient Tobacco Use Status: Never used Tobacco Are you DNR?: No Advance Directives: No Advance Directives Information Provided: Yes Recently lost weight without trying: Yes How much weight loss: 2-13 pounds Eating poorly because of decreased appetite: No Nutrition screen score: 3 Nutrition Risks: No Nutritional Risk service: No Current occupational status: unemployed Meds Allergies Allergy/AdvReac Type Severity Reaction Status Date / Time penicillin V Allergy Intermediate Rash Verified 07/07/23 15:21 Home Medications Medication Instructions Recorded Confirmed Last Taken Type cholecalciferol (vitamin D3) 25 25 mcg PO DAILY 03/18/21 08/07/23 Unknown History mcg (1,000 unit) capsule docusate sodium 100 mg capsule 100 mg PO DAILY 03/18/21 08/07/23 Unknown History (DOK) multivitamin 1 tab PO DAILY 03/18/21 08/07/23 Unknown History omeprazole 20 mg capsule,delayed 40 mg PO DAILY PRN Acid Reflux 03/18/21 08/07/23 05/24/21 06:00 History release apixaban 5 mg tablet (Eliquis) 5 mg PO BID 09/03/21 08/07/23 Unknown History melatonin 10 mg tablet 10 mg PO BEDTIME PRN Insomnia 12/06/21 08/07/23 Unknown History calcium carbonate 500 mg calcium 500 mg PO BID 08/29/22 08/07/23 Unknown History (1,250 mg) tablet atorvastatin 40 mg tablet 40 mg PO BEDTIME 08/07/23 08/07/23 Unknown History carvedilol 6.25 mg tablet 6.25 mg PO BID 08/07/23 08/07/23 Unknown History gabapentin 300 mg capsule 300 mg PO TID 08/07/23 08/07/23 Unknown History lisinopril 10 mg tablet 10 mg PO DAILY 08/07/23 08/07/23 Unknown History Exam Airway Mallampati Class: II TM Dist: >3cm Neck ROM: Full Loose/Missing/Broken Teeth: Yes Assessment and Plan Assessment Anesthesia Assessment: Anesthesia Plan Discussed Final Anesthetic Review Family History of Problems with Anesthesia: No History of Problems with Anesthesia: No NPO: Yes ASA Class: III Final Preanesthetic Review: No Changes in Pt Med Stat, Meds/Allgs Chart Reviewed, Consent Obtained/Reviewed and Anes Risks/Benef Reviewed Patient Risk: Intermediate Procedure Risk: Low Anesthetic Plan Anesthetic Plan: MAC: Disposition: Standard PACU
[2023-08-11 10:12] VITALS: BP 136/73; PULSE 63; RESP 18; TEMP 36.3; O2SAT 97
[2023-08-11] MEDS: Lactated Ringers 1,000 ML 100 ML IVCONT (10:12)
[2023-08-11 10:15] VITALS: BMI 25.7
--- NOTE | 2023-08-11 10:16 | MHC.SHP ---
Pre-Procedural Eval Section A Date of Service: 08/11/23 Section B Chief Complaint: screening Relevant Family History (Specify if Yes): No Relevant Social History: None Present Medications: see Short Stay Collaborative assessment Medical History: Significant History (CHLOE II (cervical intraepithelial neoplasia II) History of left breast cancer Atrial fibrillation COVID-19 vaccine series completed High cholesterol Diabetes Hypertension Invasive ductal carcinoma of left breast Nipple lesion) History of Previous Operations: Relevant previous surgery/procedure and date(s) (H/O LEEP History of lumpectomy of left breast Hx of left breast biopsy) Allergies: Allergies Allergy/AdvReac Type Severity Reaction Status Date / Time penicillin V Allergy Intermediate Rash Verified 07/07/23 15:21 Review of Systems Sugical H&P ROS: Negative: Constitution, Cardiovascular, Respiratory, Neurological, Psychiatric, Hem-Onc, Allergic/Immunologic, Gastrointestinal, Genitourinary, Musculoskeletal, Integumentary, Endocrine and Eyes/Ears/Nose/Throat Exam Surgical H&P Exam: Normal: HEENT, Normal: Heart, Normal: Lungs, Normal: Extremities, Normal: Abdomen, Normal: Skin and Normal: Neurological Plan Diagnosis/Plan: Unchanged I have reviewed the history and physical and performed a pertinent physical examination on my patient. No changes have occurred unless specified. Time Spent With Patient Time: Total time managing care of this patient today ____ minutes.
--- NOTE | 2023-08-11 11:11 | W.PM.OPN ---
Operative Note Operative Note Date of Service: 08/11/23 Narrative: Operative Information Procedure Description: Colonoscopy Indication: screening Anesthesia: MAC COLONOSCOPY Instrument: Olympus variable stiffness pediatric scope 190L Colonoscopy Monitoring: Vital signs and clinical assessment, continuous EKG monitoring, Pulse oximetry, Carbon Dioxide monitoring and blood pressure monitoring were done throughout the procedure. Colon withdrawal time was 8 minutes. Procedure: The patient was placed in the left lateral decubitis position and pre-procedure medications were administered. After a digital rectal examination of the ano-rectum, the video colonoscope was inserted into the rectum and advanced through the colon to the cecum/TI. The colonoscope was slowly withdrawn in a retrograde panoramic fashion and the colon mucosa was carefully examined including a retroflexed view of the rectum. Findings and interventions are described below. Procedure Difficulty: easy Findings: Terminal Ileum-normal Cecum:normal Ascending Colon: normal Transverse Colon -normal Descending Colon:normal Sigmoid Colon: normal Rectum: Retroflexion with small internal hemorrhoids, grade I, 6-7 mm sessile polyp removed with cold snare Anorectum - normal Colon preparation: [place] Bowel Preparation Scale Right colon; 2 Transverse colon: 2 Left colon; 3 (0 = Unprepared colon segment with mucosa not seen due to solid stool that cannot be cleared. 1 = Portion of mucosa of the colon segment seen, but other areas of the colon segment not well seen due to staining, residual stool and/or opaque liquid. 2 = Minor amount of residual staining, small fragments of stool and/or opaque liquid, but mucosa of colon segment seen well. 3 = Entire mucosa of colon segment seen well with no residual staining, small fragments of stool or opaque liquid) Impression and Post Procedure Diagnosis: polyp internal hemorrhoids Plan: High fiber diet leaflet Avoid straining at stool, epsom salts and sitz bath, anusol supps or cream Repeat Colonoscopy in 5-7 years if adenomatous polyp, 10 yrs if hyperplastic or earlier if clinically indicated restart eliquis tomorrow Above findings were reviewed with the patient and relevant handouts were provided if indicated.
[2023-08-11 11:37] VITALS: BP 92/40; PULSE 72; RESP 17; TEMP 36.1; O2SAT 98
[2023-08-11 11:52] VITALS: BP 92/41; PULSE 70; RESP 14; O2SAT 100
[2023-08-11 12:07] VITALS: BP 116/56; PULSE 64; RESP 18; TEMP 36.4; O2SAT 100
== END 2023-08-11 13:00 | disposition home or self-care (01) ==
PROVIDERS: PCP Family Medicine; Visit Provider Internal Medicine Gastroenterology
PROC: 0DJD8ZZ Inspection of Lower Intestinal Tract, Via Natural or Artificial Opening Endoscopic (ICD-10-PCS; CPT 45378; principal; 2023-08-11 11:30)
DX: Z12.11 Encounter for screening for malignant neoplasm of colon (principal); K62.1 Rectal polyp; K64.0 First degree hemorrhoids; K58.2 Mixed irritable bowel syndrome; I48.91 Unspecified atrial fibrillation; E11.9 Type 2 diabetes mellitus without complications; E78.00 Pure hypercholesterolemia, unspecified; I10 Essential (primary) hypertension; N87.1 Moderate cervical dysplasia; Z85.3 Personal history of malignant neoplasm of breast; Z79.01 Long term (current) use of anticoagulants; Z79.899 Other long term (current) drug therapy
CPT/HCPCS: 45385; 88305; J2704

== ENCOUNTER → 2023-08-11 09:44 | Outpatient (BNV) | payer OTHER, SELFPAY | PROVIDERS: PCP Family Medicine; Visit Provider Internal Medicine Gastroenterology | DX: Z12.11 Encounter for screening for malignant neoplasm of colon (principal); D12.8 Benign neoplasm of rectum; K64.0 First degree hemorrhoids | CPT/HCPCS: 45385 ==

== ENCOUNTER 2023-11-17 14:22 | Outpatient (REF) | payer OTHER, SELFPAY ==
--- NOTE | ~2023-11-17 | MM_ITS ---
EXAMINATION: MM DIAGNOSTIC DIGITAL BREAST TOMOSYNTHESIS, BILATERAL CLINICAL INFORMATION: Due for yearly. History of left lumpectomy, radiation, and chemotherapy for anterior left breast cancer in 2020 with nipple areolar complex involvement. This will be the third and final post lumpectomy protocol follow-up. COMPARISON: Mammography: 10/17/2022, 10/15/2021, 04/29/2021, 10/15/2020, 10/05/2020, 02/22/2019. TECHNIQUE: Digital breast tomosynthesis is performed in both the craniocaudal and mediolateral oblique views along with computer-aided detection (CAD). Synthesized 2D images are generated from the tomosynthesis. In addition to standard views, 2-D spot magnification views of the left breast lumpectomy site in the CC and ML projections were also performed. FINDINGS: There are scattered areas of fibroglandular density (ACR BI-RADS breast composition Category b). There are evolving post therapy changes in the left breast with slightly reduced breast size, mild trabecular prominence, and mild skin thickening. Left nipple is not seen. There is mild scarring along the periareolar region. There is also mild scarring in the left axilla from axillary node dissection. No new suspicious abnormality is present in the left breast. There are no masses, regions of architectural distortion, or suspicious calcifications in the right breast. The parenchymal pattern is stable from prior exams. MM/MM tomosynthesis diagnostic BI IMPRESSION: There are no mammographic changes suspicious for malignancy. Similar evolving post therapy changes of the left breast, benign. No clear mammographic evidence of disease recurrence. This concludes 3 year left breast post op surveillance. Patient should resume routine annual bilateral screening mammography. No suspicious findings right breast. ASSESSMENT: BI-RADS BI-RADS 2 - Benign Findings RECOMMENDATION: 1 year F/U Results were provided to the patient at time of visit by the technologist. This patient's information was entered into a reminder system with a target due date for their next mammogram.
== END 2023-11-17 14:23 | disposition home or self-care (01) ==
LOC: HO.MAMMO 14:22
PROVIDERS: PCP Family Medicine; Visit Provider Family Medicine
DX: Z85.3 Personal history of malignant neoplasm of breast (principal)
CPT/HCPCS: 77062; 77066

== ENCOUNTER → 2023-11-17 15:00 | Outpatient (BNV) | payer OTHER, SELFPAY | PROVIDERS: PCP Family Medicine; Visit Provider Radiology Diagnostic Radiology | DX: Z85.3 Personal history of malignant neoplasm of breast (principal) | CPT/HCPCS: 77066; G0279 ==

== ENCOUNTER 2023-11-25 13:15 | Outpatient (AMB) | payer OTHER, SELFPAY ==
--- NOTE | 2023-11-25 15:12 | MHC.OFFVIS ---
Intake Vital Signs 11/25/23 15:17 Weight 150 lb Intake Visit Reasons: one year breast exam Intake Note: This patient presents for a yearly follow-up breast examination assessment. Pt c/o; reports no breast complaints at this time. Oil Field Equipment Mechanic Supervisor Required: Yes Oil Field Equipment Mechanic Supervisor Language: Wildlife Biologist Name: Yelena Information Interpreted: non-clinical & clinical Accompanied by: Self / Same As Patient Allergies penicillin V Allergy (Intermediate, Verified 11/25/23 15:22) Rash Medication List - Last Reconciled 11/25/23 by Charanjit Mathews MD apixaban (Eliquis) 5 mg PO BID atorvastatin 40 mg PO BEDTIME bisacodyl (Dulcolax (bisacodyl)) 10 mg (2 x 5 mg) PO ONCE 1 day calcium carbonate 500 mg PO BID calcium carbonate-vitamin D3 500 mg-10 mcg (400 unit) (Calcium 500 With D) 1 tab PO BID carvedilol 6.25 mg PO BID cholecalciferol (vitamin D3) 25 mcg PO DAILY docusate sodium (DOK) 100 mg PO DAILY gabapentin 300 mg PO TID letrozole 2.5 mg PO DAILY lisinopril 10 mg PO DAILY melatonin 10 mg PO BEDTIME PRN multivitamin 1 tab PO DAILY multivitamin with folic acid 400 mcg (Daily-Yousif (with folic acid)) tabs PO omeprazole 40 mg PO DAILY PRN polyethylene glycol 3350 (Miralax) 238 grams PO ONCE polyethylene glycol 3350 (Gavilax) 17 grams PO DAILY HPI one year breast exam HPI Details She is here for fo llow-up for histor y of left breast i nvasive ductal car cinoma. She had undergone lumpecto my with needle loc alization and sent inel biopsy last S 2020 and was noted to have a T4 N0 cancer at that time. She h ad completed adju vant chemotherapy and radiation to t he left breast. S he is also being f ollowed by the onc ology service. S he denies any new complaints. She s ays she feels well overall. She she denies any proble ms with her previo us lumpectomy site . She has been on hormonal treatmen t with letrozole. She denies any palpable breast m asses or do nipple or skin changes. She does state th at he would underg one laparoscopic c holecystectomy in [place] a few dennis hs ago. [facility] Medical History CHLOE II (cervical intraepithelial neoplasia II) History of left breast cancer Atrial fibrillation COVID-19 vaccine series completed High cholesterol Diabetes Hypertension Invasive ductal carcinoma of left breast Nipple lesion Surgical History Hx laparoscopic cholecystectomy (~09/2023) H/O LEEP History of lumpectomy of left breast Hx of left breast biopsy Family History Maternal Aunt Pancreatic cancer Maternal Aunt No problems noted. Maternal Aunt No problems noted. Family/Other Metastatic breast cancer Social History Household Members: None Housing: Apartment Are you a primary long term acute care registered nurse to a significant other at home: No Do you presently have visiting nurse or other home services: No Alcohol intake: former Patient Tobacco Use Status: Never used Tobacco service: No Current occupational status: unemployed Female Reproductive History Menstrual Age of Menarche: 16 Review of Systems Const Denies chills and Denies fever(s) Card Denies chest pain, Denies dyspnea and Denies dyspnea on exertion Resp Denies cough, Denies dyspnea and Denies dyspnea on exertion GI Denies hematochezia and Denies change in bowel habits Denies hematuria Musc Denies back pain and Denies limited range of motion Neuro Denies focal weakness and Denies convulsions Psych Denies depression and Denies mood swings Physical Exam Const General: comfortable and no acute distress Orientation/consciousness: patient oriented x3 Neck Neck: Yes no lymphadenopathy Chest Other: No palpable breast masses, no nipple or skin changes, no axillary lymphadenopathy Resp Auscultation: clear to auscultation bilaterally Cardio Rhythm: regular rhythm GI Palpation (GI): Soft to palpation, nontender and no guarding Neuro General: patient oriented x3 Assessment & Plan Assessment & Plan (1) History of left breast cancer: Comment: Code(s): Z85.3 - Personal history of malignant neoplasm of breast Plan: She continues to do well after lumpectomy, radiation, and chemotherapy for a T4 N0 invasive ductal carcinoma. There were no palpable breast masses or nipple or skin changes. I have reviewed her mammogram from last week and this does not reveal any new lesions I reminded her to continue doing yearly mammograms. She is also to continue following up with Dr. Humphrey. I will see her again in the office next year after her mammogram. Coding Level of Care Code Est Pt Level 3 (49869) Diagnoses History of left breast cancer Z85.3
== END 2023-11-25 15:48 | disposition home or self-care (01) ==
PROVIDERS: PCP Family Medicine; Visit Provider Surgery
DX: Z85.3 Personal history of malignant neoplasm of breast (principal)
CPT/HCPCS: 99213

== ENCOUNTER → 2023-11-25 13:15 | Outpatient (BNVA) | payer OTHER, SELFPAY | PROVIDERS: PCP Family Medicine; Visit Provider Surgery | DX: Z85.3 Personal history of malignant neoplasm of breast (principal) | CPT/HCPCS: 99212 ==

== ENCOUNTER 2023-12-16 12:02 | Outpatient (REF) | payer OTHER, SELFPAY ==
[2023-12-16 13:56] LABS: Alanine Aminotransferase 17 U/L (0-31); Alkaline Phosphatase 70 U/L (39-117); Anion Gap 13 (12-20); Aspartate Amino Transferase 21 U/L (5-31); Bilirubin Direct 0.2 mg/dL (0.0-0.5); Bilirubin Total 0.4 mg/dL (0.0-1.0); Blood Urea Nitrogen 11 mg/dL (9-16); Calcium 8.7 mg/dL (8.4-10.2); Carbon Dioxide 24 mmol/L (22-29); Chloride 109 mmol/L (96-108); Cholesterol 180 mg/dL (<200); Estimated Glomerular Filt Rate > 60; Glucose Random 150 mg/dL (60-115); HDL Cholesterol 56 mg/dL (>40); LDL Cholesterol Calculated 95 mg/dL (<100); Potassium 3.5 mmol/L (3.3-5.1); Sodium 142 mmol/L (135-145); Total Protein 6.9 g/dL (6.5-8.0); Triglycerides 146 mg/dL (<150)
[2023-12-16 14:00] LABS: Estimated Average Glucose 140 mg/dL; Hemoglobin A1C 148.5835 umol/L; Hemoglobin A1c % 6.5 % (<6.0)
[2023-12-16 14:10] LABS: Creatinine Urine 78.31 mg/dL; Microalbum/Creatinine Ratio Ur 15.3 ug/mg cr (<30)
== END 2023-12-16 12:03 | disposition home or self-care (01) ==
LOC: HO.HHCL 12:02
PROVIDERS: Visit Provider Family Medicine
DX: E11.00 Type 2 diabetes mellitus with hyperosmolarity without nonketotic hyperglycemic-hyperosmolar coma (NKHHC) (principal)
CPT/HCPCS: 36415; 80048; 80061; 80076; 82043; 82570; 83036

== ENCOUNTER 2024-03-23 12:39 | Outpatient (REF) | payer OTHER, SELFPAY ==
--- NOTE | ~2024-03-23 | MM_ITS ---
EXAMINATION: BONE DENSITOMETRY CLINICAL INDICATION: Osteopenia. COMPARISON: Baseline BD dated 11/22/2021. TECHNIQUE: Using a BzzAgent DXA System (software version: 13.1) manufactured by [employer], dual-energy x-ray absorptiometry was performed of the lumbar spine and left hip. The images are of good technical quality. Summary results are attached. FINDINGS: LEFT FEMUR, NECK: Current: BMD 0.827 g/cm2, Z-score 0.2, T-score -1.5, osteopenia. Baseline: BMD 0.895 g/cm2. LEFT FEMUR, TOTAL: Current: BMD 0.934 g/cm2, Z-score 0.9, T-score -0.6, normal, 1.2% decrease from baseline (<5% change is not significant). Baseline: BMD 0.945 g/cm2. AP SPINE L1-L4: Current: BMD 1.039 g/cm2, Z-score 0.4, T-score -1.2, osteopenia, 1.4% increase from baseline (<5% change is not significant). Baseline: BMD 1.025 g/cm2. IDENTIFIED RISK FACTORS: Menopause, osteoporosis, anticonvulsant. HISTORY OF FRACTURE: None listed. MEDICATIONS: Calcium supplements or multivitamin, vitamin D, ERT/SERMS. MM/XR DEXA axial skeleton IMPRESSION: 1. DIAGNOSIS: Osteopenia based on the lowest T-score value of -1.5 in the femoral neck applying World Health Organization criteria. 2. 10-YEAR FRACTURE RISK PREDICTION, FRAX: Not performed in this patient on estrogen or bone building treatments. 3. Treatment Recommendations: NOF guidelines recommend consideration for treatment in postmenopausal women and men age 50 and older presenting with the following: -A hip or vertebral (clinical or morphometric) fracture. -T-score less than or equal to -2.5 at the femoral neck or spine after appropriate evaluation to exclude secondary causes. -Low bone mass at the hip or spine and a 10-year fracture probability by FRAX of greater than or equal to 3% for hip fracture or greater than or equal to 20% for major osteoporotic fracture based on the [place] adapted WHO algorithm. 4. Other Recommendations: All treatment decisions require clinical judgment and consideration of individual patient factors, including patient preferences, comorbidities, previous drug use, risk factors not captured in the FRAX model (e.g. frailty, falls, vitamin D deficiency, increased bone turnover, interval significant decline in bone density) and possible under or overestimation of fracture risk by FRAX. Additional medical evaluation for secondary cause of low bone mineral density may be appropriate. FUTURE SCAN RECOMMENDATION: People with diagnosed cases of osteoporosis or at high risk for fracture should have regular bone mineral density tests. For patients eligible for Medicare, routine testing is allowed once every 2 years. The testing frequency can be increased to one year for patients who have rapidly progressing disease, those who are receiving or discontinuing medical therapy to restore bone mass, or have additional risk factors.
== END 2024-03-23 12:40 | disposition home or self-care (01) ==
LOC: HO.MAMMO 12:39
PROVIDERS: PCP Family Medicine; Visit Provider Internal Medicine
DX: Z13.820 Encounter for screening for osteoporosis (principal); Z78.0 Asymptomatic menopausal state; M85.80 Other specified disorders of bone density and structure, unspecified site
CPT/HCPCS: 77080

== ENCOUNTER 2024-04-08 13:33 | Outpatient (AMB) | payer OTHER, SELFPAY ==
--- NOTE | 2024-04-08 13:51 | MHC.OFFVIS ---
Vital Signs 04/08/24 13:54 Height 5 ft 4 in Weight 153 lb BMI 26.3 BP 116/68 Intake Visit Reasons: POWER PRESS TENDER annual exam/30mins/Chinese Intake Note: 04/06 ascus +hpv 9/ colpo chloe 1-2 08/07 cone bx chloe 1 08/08 neg pap and hpv 09/08 ascus 12/08 colpo 12/10 neg pap and hpv Chemical Waste Management Technician Required: Yes Chemical Waste Management Technician Language: Crackling Press Operator Services: Chemical Waste Management Technician Present (in person) Chemical Waste Management Technician Name: Kamille CHAVEZ Information Interpreted: non-clinical & clinical Checker Cashier: Checker Cashier Present (Kamille CHAVEZ) Accompanied by: Self / Same As Patient Allergies penicillin V Allergy (Intermediate, Verified 04/08/24 14:01) Rash Post menopausal: Yes HPI Comments Details: She is a postmenopausal woman presenting for her annual wool grower examination. She is doing well with no concerns. Attempting to eat a healthy diet with calcium and vitamin D. Limited activity with balance issues. Currently not sexually active in many years. Denies any vaginal dryness or irritation. Last pap smear; 2022, history of LEEP. Last mammogram; 2023. Colonoscopy is UTD. [facility] Medical History CHLOE II (cervical intraepithelial neoplasia II) History of left breast cancer Atrial fibrillation COVID-19 vaccine series completed High cholesterol Diabetes Hypertension Invasive ductal carcinoma of left breast Nipple lesion Surgical History Hx laparoscopic cholecystectomy (~09/2023) H/O LEEP History of lumpectomy of left breast Hx of left breast biopsy Family History Maternal Aunt Pancreatic cancer Maternal Aunt No problems noted. Maternal Aunt No problems noted. Family/Other Metastatic breast cancer Social History Household Members: None Housing: Apartment Are you a primary health care facilities inspector to a significant other at home: No Do you presently have visiting nurse or other home services: No Alcohol intake: former Patient Tobacco Use Status: Never used Tobacco service: No Current occupational status: unemployed Female Reproductive History Menstrual Age of Menarche: 16 Total pregnancies: 2 Full term: 2 Number of Living Children: 1 Date of last pap smear: 01/23/23 (neg pap and hpv) History of abnormal pap smear: Yes (see intake note) Date of Mammogram: 11/17/23 (Birad 2) Date of last Bone Density Screenin03/23/24 Review of Systems Const All systems reviewed & are unremarkable except as noted in HPI and below Reports as per HPI Eyes Reports no additional complaints ENT Reports no additional complaints Card Reports no additional complaints Resp Reports no additional complaints GI Reports as per HPI and Reports no additional complaints Reports as per HPI Musc Reports no additional complaints Skin/Breast Reports as per HPI Neuro Reports no additional complaints Psych Reports no additional complaints Endo Reports no additional complaints Sd/Lymph Reports no additional complaints Aller/Immun Reports no additional complaints Physical Exam Vital Signs: Last Vital Signs BP 116/68 04/08/24 13:54 BMI result Body Mass Index 26.3 Const General: cooperative, healthy appearing, no acute distress, well developed and alert Orientation/consciousness: patient oriented x3 HEENT Head: Yes normal to inspection Eyes General: appearance normal, both eyes and all related structures Neck Neck: Yes normal visual inspection Thyroid: Thyroid normal Chest Chest palpation & inspection: normal inspection of the chest and other (no puckering, dimpling, peau de orange, retraction, discharge, masses) Breast/axilla inspection: normal inspection of the breasts (Left breast post surgical appearance no nipple or areola) Breast/axilla palpation: normal palpation of the breasts Resp Effort & Inspection: normal respiratory effort GI Inspection: Yes normal to inspection Palpation (GI): Soft to palpation Rectal Exam - Female: deferred General: Yes bladder normal to palpation External Female Exam: normal external appearance and normal appearance of the urethra Speculum Exam - Vagina: normal appearance of the vagina, normal palpation, normal vaginal discharge and vagina atrophic Speculum Exam - Cervix: normal appearance of the cervix, normal palpation and Other cervical findings present (Short post LEEP appearance) Bimanual exam- vagina & uterus: normal bimanual exam, normal palpation, uterine size normal, bladder normal to palpation, normal palpation and non-tender Bimanual Exam- Adnexa, other: no masses Skin General skin exam: no rashes or lesions noted Rashes: no rashes Neuro General: patient oriented x3 Cognition (Neuro): normal cognition Extrem General: Yes normal to inspection Psych Attitude: cooperative Thought process: Normal thought process present Assessment & Plan Assessment & Plan (1) Encounter for well woman exam with routine gynecological exam: Code(s): Z01.419 - Encounter for gynecological examination (general) (routine) without abnormal findings Category: Medical Plan Discussed: Current recommendations for pap smears per ASCCP guidelines. Breast awareness, periodic self breast exams and yearly mammogram. Maintain a healthy lifestyle, well balanced diet including Calcium 1,200 mg and Vitamin D 800 IU daily, and routine exercise. Contact the office with any postmenopausal bleeding. Sign up for the patient portal if not already enrolled. Patient verbalizes understanding and agrees to the plan of care. She was given opportunity to ask questions and all questions were answered to the best of my ability. Return to the office 1 year. This note is constructed using voice recognition software. While every effort has been made to ensure accuracy, x ray physician errors may have been included. RTO in 1 year for annual wool grower exam. Coding Level of Care Code Est Pt Prev Care >65y(73925) Diagnoses Encounter for well woman exam with routine gynecological exam Z01.419
[2024-04-08 13:54] VITALS: BP 116/68; BMI 26.3
== END 2024-04-08 14:39 | disposition home or self-care (01) ==
LOC: HO.HWS 13:33
PROVIDERS: PCP Family Medicine; Visit Provider Advanced Practice Midwife
DX: Z01.419 Encounter for gynecological examination (general) (routine) without abnormal findings (principal)
CPT/HCPCS: 99397

== ENCOUNTER → 2024-04-08 13:33 | Outpatient (BNVA) | payer OTHER, SELFPAY | PROVIDERS: PCP Family Medicine; Visit Provider Advanced Practice Midwife ==

== ENCOUNTER 2024-11-25 13:37 | Outpatient (REF) | payer OTHER, SELFPAY ==
--- OUTSIDE RECORDS SUMMARY | 2024-11-25 15:14 | XMS_ITS | Encounter Summary ---
Author Organization [employer] Address [address] [place] [address] Care Team Providers Care Work Order Clerk Name Role Phone Tabitha Gerard MD Primary Care Provider [phone] Ismael Stout MD Unavailable [phone] Milagro Humphrey MD Unavailable [phone] Reason for Visit * Reason Comments Med Refill Encounter Details Date Type Department Care Team (Late st Contact Info) Description 07/22/2024 Refill [facility] [address] [place] [address] Tabitha Gerard MD [address] [place] [address] Acute URI Social History Tobacco Use Types Packs/Day Years Used Date Smoking Tobacco: Never Smokeless Tobacco: Never Depression Answer Date Recorded Patient Health Questionnaire-9 Score 0 12/09/2023 Patient Health Questionnaire-9 Score 0 12/09/2023 Last PHQ-9: Questionnaire Data Not on file 0 12/09/2023 Housing Stability Answer Date Recorded What is your housing situation today? I have gideon miles 12/09/[address] you li ve. Do you have problems with any of the following? None of the above 12/09/2023 Food Insecurity Answer Date Recorded Within the past 12 months, y ou worried that your food would run out before you got money to buy more: Never True 12/09/2023 Within the past 12 months,th e food you bought just didn't last and you didn't have enough money to get more: Never True Transportation Answer Date Recorded In the past 12 months, has l ack of transportation kept you from medical appts, meetings, work or from getting things needed for daily living? No 12/09/2023 Utilities Answer Date Recorded In the past 12 months, has t he electric, gas, oil or water company threatened to shut off services in your home? No 12/09/2023 Depression Answer Date Recorded Patient Health Questionnaire-2 Score 0 12/09/2023 Comments Unknown Sex and Gender Information Value Date Recorded Sex Assigned at Female 07/21/2022 10:14 AM EDT Legal Sex Female 10:14 AM EDT Gender Identity Female 07/21/2022 10:14 AM EDT Sexual Orientation Straight 07/21/2022 10 :14 AM EDT documented as of this encounter Plan of Treatment Upcoming Encounters Date Type Department Care Team (Late st Contact Info) Description 11/30/2024 2:00 PM EDT Office Visit [facility] [address] [place] [address] Tabitha Gerard MD [address] [place] [address] documented as of this encounter Visit Diagnoses Diagnosis Acute URI Acute upper respiratory infections of unspecified site documented in this encounter Additional Health Concerns Assessment Noted Time PHQ-9 Depression Total Score: 0 12/09/19 2:18 PM EDT documented as of this encounter Care Teams Work Order Clerk Relationship Specialty Start Date End Date Tabitha Gerard MD [address] [place] [address] PCP - General Family Medicine 09/21/18 Ismael Stout MD [address] [place] [address] Cardiology 09/07/24 Milagro Humphrey MD [address] [place] [address] Hematology and Oncology 09/09/24 [place] [facility] Orth[facility]ics 09/27/24 documented as of this encounter
--- OUTSIDE RECORDS SUMMARY | 2024-11-25 15:14 | XMS_ITS | Encounter Summary ---
Author Organization [employer] Address [address] [facility] [address] [place] [address] Care Team Providers Care Checkout Supervisor Name Role Phone Tabitha Gerard MD Primary Care Provider [phone] Ismael Stout MD Unavailable [phone] Milagro Humphrey MD Unavailable [phone] Reason for Visit * Reason Comments Med Change Request Encounter Details Date Type Department Care Team ([facility] st Contact Info) Description 11/03/2024 Refill [facility] [address] [place] [address] Tabitha Gerard MD [address] [place], [place] [id number] Acute URI Social History Tobacco Use Types [...] Description 11/30/2024 2:00 PM EDT Office Visit [facility] [address] [place] [address] Tabitha Gerard MD [address] [place] [address] documented as of this encounter Visit Diagnoses Diagnosis Acute URI Acute upper respiratory infections of unspecified site documented in this encounter Additional Health Concerns Assessment Noted Time PHQ-9 Depression Total Score: 0 12/09/19 2:18 PM EDT documented as of this encounter Care Teams Checkout Supervisor Relationship Specialty Start Date End Date Tabitha Gerard MD [address] [place] [address] PCP - General Family Medicine 09/21/18 Ismael Stout MD [address] [place] [address] Cardiology 09/07/24 Milagro Humphrey MD [address] [place] [address] Hematology and Oncology 09/09/24 [place] [facility] Orthopedics 09/27/24 documented as of this encounter
--- OUTSIDE RECORDS SUMMARY | 2024-11-25 15:14 | XMS_ITS | Continuity of Care Document ---
Author Organization [facility]. If a dditional information is needed, contact Health Information Management at [phone] Address [address] [place] [address] Phone Care Team Providers Care Senior Web Applications Developer Name Role Phone Unavailable Unavailable Unavailable Unavailable Unavailable Unavailable Unavailable Unavailable Unavailable Unavailable Unavailable Unavailable Unavailable Unavailable Unavailable Unavailable Unavailable Unavailable Unavailable Unavailable Unavailable Unavailable Unavailable Unavailable Unavailable Unavailable Unavailable Problems History of malignant neoplas m of breast Onset:28-Sep-2023 [id number] Enzyme level - finding Onset:28-Sep-2023 VUONI99 Fever Onset:28-Sep-2023 VUONI99 Disorder of brain Onset:28-Sep-2023 VUONI99 Alkaline phosphatase above r eference range Onset:28-Sep-2023 VUONI99 Cholangiectasis Onset:28-Sep-2023 VUONI99 Hyperbilirubinemia Onset:28-Sep-2023 VUONI99 Mental Status Cognitive function finding 28-Sep-2023 Allergies and Adverse Reactions No Known Allergies(Allergy) Onset: 27-Sep-2023 Medications ibuprofen 600 MG Oral Tablet;600 MILLIGRAM* ORAL Q6H PRN Start:01-Oct-2023 Comments:600 MG PO Q6H PRN As Needed for pain cefdinir 300 MG Oral Capsule;300 MILLIGRAM* ORAL BID Start:01-Oct-2023 Comments:300 MG PO BID pantoprazole 40 MG Delayed Release Oral Tablet [Protonix];40 MILLIGRAM* DAILY 0900 Quantity:1 Regulo Funez MD Start:27-Adn-9814Ods: 024 Status:Discontinued Comments:[id number] Administration Instructions:FORMULARY FOR PRILOSEC 20 MG BID DO NOT CRUSH, CHEW, OR CUT cefdinir 300 MG Oral Capsule;300 MILLIGRAM* ORAL BID Start:30-Sep-2023 Comments:300 MG PO BID 2 ML dexmedeTOMIDine 0.1 MG/ ML Injection [Precedex];Provider Administration Instructions: Use ORANGE top Vial-2-Bag 13mm Adaptor Attach bag to adaptor. Reconstitute medicationby squeezing solution into vial. Squeeze bag topush dissolved medication into bag. SHAKE WELL Final Concentration = 4 mcg/mL Quantity:1 ARDOR Start:29-Sep-2023 Status:Discontinued Comments:Provider Administration Instructions: Use ORANGE top Vial-2-Bag 13mm Adaptor Attach bag to adaptor. Reconstitute medicationby squeezing solution into vial. Squeeze bag topush dissolved medication into bag. SHAKE WELL Final Concentration = 4 mcg/mL Dexamethasone 4 MG/ML Injectable Solution Quantity:1 ARDOR Start:29-Sep-2023 Status:Discontinued neostigmine methylsulfate 0. 5 MG/ML Injectable Solution Quantity:1 ARDOR Start:29-Sep-2023 Status:Discontinued glycopyrrolate 0.2 MG/ML Injectable Solution Quantity:1 ARDOR Start:29-Sep-2023 Status:Discontinued ondansetron 2 MG/ML Injectab le Solution [Zofran] Quantity:1 ARDOR Start:29-Sep-2023 Status:Discontinued 2 ML fentaNYL 0.05 MG/ML Injection Quantity:1 ARDOR Start:29-Sep-2023 Status:Discontinued ceFAZolin 330 MG/ML Injectab le Solution Quantity:1 Luca Pleitez DO Start:29-Sep-2023 Status:Discontinued pantoprazole 40 MG Injection [Protonix];40 MILLIGRAM* DAILY 0900 Quantity:1 LINED99 Start:9-Ctr-2989Vqz:28-Dec-19 Status:Discontinued Comments:[id number] Administration Instructions:-Reconstitute with 10 ml 0.9% NaCl ONLY.-Administer through a dedicated IV line. Ifdedicated IV line is unavailable, contactpharmacist for guidelines.Flush IV line before and after pantoprazoleadministration.- phenylephrine hydrochloride 10 MG/ML Injectable Solution Quantity:1 [id number] Start:29-Sep-2023 Status:Discontinued rocuronium bromide 10 MG/ML Injectable Solution [Zemuron] Quantity:1 [id number] Start:29-Sep-2023 Status:Discontinued midazolam 1 MG/ML Injectable Solution Quantity:1 [id number] Start:29-Sep-2023 Status:Discontinued propofol 10 MG/ML Injectable Suspension;Provider Administration Instructions:FINAL CONCENTRATION = 10 MG/ML Quantity:1 [id number] Start:29-Sep-2023 Status:Discontinued Comments:Provider Administration Instructions:FINAL CONCENTRATION = 10 MG/ML Succinylcholine 20 MG/ML Injectable Solution [Quelicin] Quantity:1 [id number] Start:29-Sep-2023 Status:Discontinued 2 ML fentaNYL 0.05 MG/ML Injection Quantity:1 [id number] Start:29-Sep-2023 Status:Discontinued lidocaine hydrochloride 20 MG/ML Injectable Solution [Xylocaine] Quantity:1 LINED99 Start:29-Sep-2023 BUPivacaine hydrochloride 2. 5 MG/ML Injectable Solution Quantity:1 LINED Start:29-Sep-2023 Status:Discontinued traMADol hydrochloride 50 MG Oral Tablet;50 MILLIGRAM* ORAL Q6H PRN Start:29-Sep-2023 Comments:50 MG PO Q6H PRN As Needed for pain ibuprofen 600 MG Oral Tablet;600 MILLIGRAM* ORAL Q6H PRN Start:29-Sep-2023 Comments:600 MG PO Q6H PRN As Needed for pain ondansetron 2 MG/ML Injectab le Solution [Zofran] Quantity:1 Jose Carrera DO Start:28-Sep-2023 Dexamethasone 4 MG/ML Injectable Solution Quantity:1 Jose Carrera DO Start:28-Sep-2023 Status:Discontinued iopamidol;Provider Administration Instructions: RADIOLOGY USE ONLY Quantity:1 Jose Carrera DO Start:28-Sep-2023 Comments:Provider Administration Instructions: RADIOLOGY USE ONLY propofol 10 MG/ML Injectable Suspension;Provider Administration Instructions:FINAL CONCENTRATION = 10 MG/ML Quantity:1 Jose Carrera DO Start:28-Sep-2023 Status:Discontinued Comments:Provider Administration Instructions:FINAL CONCENTRATION = 10 MG/ML 2 ML fentaNYL 0.05 MG/ML Injection Quantity:1 Jose Carrera DO Start:28-Sep-2023 Status:Discontinued lidocaine hydrochloride 20 MG/ML Injectable Solution [Xylocaine] Quantity:1 Jose Carrera DO Start:28-Sep-2023 Status:Discontinued Succinylcholine 20 MG/ML Injectable Solution [Quelicin] Quantity:1 Jose Carrera DO Start:28-Sep-2023 Status:Discontinued rocuronium bromide 10 MG/ML Injectable Solution [Zemuron] Quantity:1 Jose Carrera DO Start:28-Sep-2023 Status:Discontinued potassium chloride 10 MEQ Extended Release Oral Tablet [Klor-Con];[id number] Administration Instructions:3.8-4.0, give 20 mEq3.5-3.7, give 30 mEq3.3-3.4, give 40 mEq3.0-3.2, give 50 mEq2.6-2.9, give 60 mEq< 2.6, give 80 mEqSEE ADMIN CRITERIA - TAKE WITH FOOD(OSELECPROT) Quantity:0 Jose Carrera DO Start:7-Esb-5360Kur:27-Dec-19 Status:Discontinued Comments:[id number] Administration Instructions:3.8-4.0, give 20 mEq3.5-3.7, give 30 mEq3.3-3.4, give 40 mEq3.0-3.2, give 50 mEq2.6-2.9, give 60 mEq< 2.6, give 80 mEqSEE ADMIN CRITERIA - TAKE WITH FOOD(OSELECPROT) acetaminophen 325 MG Oral Tablet [Tylenol];650 MILLIGRAM* Q4H PRN Quantity:2 Jose Carrera DO Start:9-Vwj-9965Xya:27-Dec-19 Status:Discontinued Comments:[id number] Administration Instructions:Do not exceed 12 tablets in 24 hoursMaximum acetaminophen dose = 4000 mg in 24 hours 100 ML potassium chloride 0. 1 MEQ/ML Injection;[id number] Administration Instructions:* SEE ADMIN CRITERIA *Infusion should not exceed 10 mEq of potassiumevery hour.(If infused via central line may give up to 10mEq of potassium over 30 minutes in emergentcases)OSELECPROT Jose Carrera DO Start:4-Edj-0341Lzg:27-Dec-19 Status:Discontinued Comments:[id number] Administration Instructions:* SEE ADMIN CRITERIA *Infusion should not exceed 10 mEq of potassiumevery hour.(If infused via central line may give up to 10mEq of potassium over 30 minutes in emergentcases)OSELECPROT Magnesium Sulfate 0.325 MEQ/ ML Injectable Solution;[id number] Administration Instructions:Magnesium Protocol - For Patients NOT ABLE totake oral medsSEE ADMIN CRITERIA(OSELECPROT) Jose Carrera DO Start:9-Rno-8147Vxb:27-Dec-19 Status:Discontinued Comments:[id number] Administration Instructions:Magnesium Protocol - For Patients NOT ABLE totake oral medsSEE ADMIN CRITERIA(OSELECPROT) CALCIUM PROTOCOL_CALPROT;[id number] er Administration Instructions:SEE COMMENTSCALL PHYSICIAN BEFORE IMPLEMENTATION ofthe electrolyte replacementand/or before administration of dose ifpatient has one of the following below criteria.Replacement dosage WILL REQUIRE ADJUSTMENT. Quantity:0 Jose Carrera DO Start:8-Gvc-9326Ddo:27-Dec-19 Status:Discontinued Comments:[id number] Administration Instructions:SEE COMMENTSCALL PHYSICIAN BEFORE IMPLEMENTATION ofthe electrolyte replacementand/or before administration of dose ifpatient has one of the following below criteria.Replacement dosage WILL REQUIRE ADJUSTMENT. acetaminophen 325 MG Oral Tablet [Tylenol];650 MILLIGRAM* Q4H PRN Quantity:2 Yessi Velarde MD Start:4-Teo-6201Ile:27-Dec-19 Status:Discontinued Comments:[id number] Administration Instructions:Do not exceed 12 tablets in 24 hoursMaximum acetaminophen dose = 4000 mg in 24 hours ondansetron 2 MG/ML Injectab le Solution [Zofran];4 MILLIGRAM* Q4H PRN Quantity:1 Yessi Velarde MD Start:0-Rvp-7735Znx:27-Dec-19 Status:Discontinued Comments:[id number] sodium chloride 9 MG/ML Injectable Solution;Provider Administration Instructions: EXTENDED INFUSION Attach bag to adaptor. Reconstitute medication by squeezingsolution into vial. Squeeze bag to push dissolved medicationinto bag. SHAKE WELL. Scan vial bag separately. Yessi Velarde MD Start:1-Eeq-1698Tdb:27-Dec-19 Status:Discontinued Comments:Provider Administration Instructions: EXTENDED INFUSION Attach bag to adaptor. Reconstitute medication by squeezingsolution into vial. Squeeze bag to push dissolved medicationinto bag. SHAKE WELL. Scan vial bag separately. 100 ML potassium chloride 0. 1 MEQ/ML Injection;[id number] Administration Instructions:* SEE ADMIN CRITERIA *Infusion should not exceed 10 mEq of potassiumevery hour.(If infused via central line may give up to 10mEq of potassium over 30 minutes in emergentcases)OSELECPROT Evin Velarde MD Start:5-Hky-8166Nym:27-Dec-2023 Status:Discontinued Comments:[id number] Administration Instructions:* SEE ADMIN CRITERIA *Infusion should not exceed 10 mEq of potassiumevery hour.(If infused via central line may give up to 10mEq of potassium over 30 minutes in emergentcases)OSELECPROT Magnesium Sulfate 0.325 MEQ/ ML Injectable Solution;[id number] Administration Instructions:Magnesium Protocol - For Patients NOT ABLE totake oral medsSEE ADMIN CRITERIA(OSELECPROT) Evin Velarde MD Start:5-Nnf-5884Pxv:27-Dec-2023 Status:Discontinued Comments:[id number] Administration Instructions:Magnesium Protocol - For Patients NOT ABLE totake oral medsSEE ADMIN CRITERIA(OSELECPROT) PHOSPHOROUS PROTOCOL_PHOSPROT;[id number] benny Administration Instructions:SEE COMMENTSCALL PHYSICIAN BEFORE IMPLEMENTATION ofth electrolyte replacementand/or before administration of dose ifpatient has one of the following below criteria.Replacement dosage WILL REQUIRE ADJUSTMENT. Quantity:0 Evin Paul Velarde MD Start:1-Zsk-4320Oci:27-Dec-2023 Status:Discontinued Comments:[id number] Administration Instructions:SEE COMMENTSCALL PHYSICIAN BEFORE IMPLEMENTATION ofth electrolyte replacementand/or before administration of dose ifpatient has one of the following below criteria.Replacement dosage WILL REQUIRE ADJUSTMENT. iopamidol;Provider Administration Instructions: RADIOLOGY USE ONLY Quantity:1 VUONI99 Start:28-Sep-2023 Status:Discontinued Comments:Provider Administration Instructions: RADIOLOGY USE ONLY letrozole 2.5 MG Oral Tablet [Femara];2.5 MILLIGRAM* ORAL DAILY Start:28-Sep-2023 Comments:2.5 MG PO DAILY lisinopril 20 MG Oral Tablet ;10 MILLIGRAM* ORAL DAILY Start:28-Sep-2023 Comments:10 MG PO DAILY atorvastatin 80 MG Oral Tabl et [Lipitor];80 MILLIGRAM* ORAL DAILY Start:28-Sep-2023 Comments:80 MG PO DAILY gabapentin 300 MG Oral Capsule;300 MILLIGRAM* ORAL TID Start:28-Sep-2023 Comments:300 MG PO TID carvedilol 6.25 MG Oral Tabl et [Coreg];6.25 MILLIGRAM* ORAL BID Start:28-Sep-2023 Comments:6.25 MG PO BID apixaban 5 MG Oral Tablet [Eliquis];5 MILLIGRAM* ORAL BID Start:28-Sep-2023 Comments:5 MG PO BID omeprazole 40 MG Delayed Release Oral Capsule;40 MILLIGRAM* ORAL BID Start:28-Sep-2023 Comments:40 MG PO BID Social History Smoking Status Never smoked tobacco Recorded: 28-Sep-2023
--- OUTSIDE RECORDS SUMMARY | 2024-11-25 15:14 | XMS_ITS | Encounter Summary ---
Author Organization [employer] Address [address] [facility] [address] [place] [address] Care Team Providers Care Marketing Writer Name Role Phone Tabitha Gerard MD Primary Care Provider [phone] Ismael Stout MD Unavailable [phone] Milagro Humphrey MD Unavailable [phone] Encounter Details Date Type Department Care Team (Late st Contact Info) Description 11/01/2024 Orders Only [facility] [address] [place], [place] [phone] Tabitha Gerard MD [address] [place], [place] [phone] Benign hypertension (Primary Dx); Dyslipidemia Social History Tobacco Use Types Packs/Day Years [...] Description 11/30/2024 2:00 PM EDT Office Visit [facility] [address] [place] [address] Tabitha Gerard MD [address] [place] [address] documented as of this encounter Visit Diagnoses Diagnosis Benign hypertension- Primary Essential hypertension, benign Dyslipidemia Other and unspecified hyperlipidemia documented in this encounter Additional Health Concerns Assessment Noted Time PHQ-9 Depression Total Score: 0 12/09/19 2:18 PM EDT documented as of this encounter Care Teams Marketing Writer Relationship Specialty Start Date End Date Tabitha Gerard MD [address] [place] [address] PCP - General Family Medicine 09/21/18 Ismael Stout MD [address] [place] [address] Cardiology 09/07/24 Milagro Humphrey MD [address] [place] [address] Hematology and Oncology 09/09/24 [facility] Orthopedics 09/27/24 documented as of this encounter
--- OUTSIDE RECORDS SUMMARY | 2024-11-25 15:14 | XMS_ITS | Data Portability ---
Author Organization [facility] [facility] Address [address] [place] [phone] Care Team Providers Care Drill Press Operator Numerical Control Name Role Phone HIM CCA OTHER Assessment Encounter Date Assessment Date Assessment LastModified by Organization Details LastModified Time 05/30/2024 05/30/2024 service called for vulvar and vaginal itching found 73 arash with hx T2DM c/o 1-2 wk vaginal and vulvar itching c/o candiasis has been unable to pickup topical cream from [facility] pharmacy requesting anti-fungal topical cream sent to retail pharmacy otherwise in usual state of health VSS genital exam not performed #Vulvovaginal Candiasis -course clotrimazole topical cream -otherwise return to primary team vkudesia Not available 05/30/2024 23:22:41 Plan of Treatment Reminders Order Date Submit Date Provider Last Modified By Organization Details Last Modified Time Details Appointments None recorded. Lab None recorded. Referral None recorded. Procedures None recorded. Surgeries None recorded. Imaging None recorded. Medication Orders clotrimazol e 1 % vaginal cream 2023 024 [facility] #[id number], [address] [place], [address], 18:46:47 Patient TargetsNo targets recorded. Patient InstructionsNo instructions recorded. Reason for Referral None Reported. Medical Equipment None Reported. Allergies Allergen ID Allergen Name Allergen Category Reaction Reaction Severity Criticality Documentation Date Start Date Code Code System Note Provider Name and Address Organization Details Recorded Time 9241 Product containin g penicilli n (product) medicatio n Not available Not available Not available 07/19/2024 [id number] SNOMED Not Available [facility] - production 03:50:52 Medications Name Sig Start Date Stop Date Status Note LastModified by Organization Details LastModified Time atorvastati n 40 mg tablet TOME VINICIUS TABLETA TODOS LOS D AL ACOSTARSE active Not Available Not Available No t Available atorvastati n 80 mg tablet TOME 1 TABLETA POR V A ORAL TODOS LOS D FOR 30 DAYS active Not Available Not Available No t Available carvedilol 6.25 mg tablet TOME VINICIUS TABLETA DOS VECES AL D A CON ALIMENTO active Not Available Not Available No t Available ammonium lactate 12 % lotion APPLY TO SOLES OF FEET DAILY. AT NIGHT WEAR SOCKS TO BED active Not Available Not Available No t Available senna 8.6 mg tablet TAKE 2 TABLETS BY ORAL ROUTE EVERY DAY NEEDED FOR CONSTIPAT ION NEEDED active Not Available Not Available No t Available clotrimazol e 1 % vaginal cream Insert 1 applicato rful every day by vaginal route at bedtime. 2023 active Not Available Not Available Not Avai lable sulfamethox azole 800 mg-trimetho prim 160 mg tablet TAKE 1 TABLET BY MOUTH EVERY 12 HOURS FOR 3 DAYS. 05/30 completed Not Available Not Available Not Available acetaminoph en ER 650 mg tablet,exte nded release TAKE 1 TABLET BY ORAL ROUTE EVERY 8 HOURS NEEDED FOR PAIN AND/OR FEVER active Not Available Not Available No t Available Mapap (acetaminop hen) 500 mg capsule TAKE 1 CAPSULE (500 MG) BY MOUTH EVERY 8 (EIGHT) HOURS IF NEEDED FOR MODERATE PAIN OR FEVER. active Not Available Not Available No t Available lisinopril 10 mg tablet TOME VINICIUS TABLETA TODOS LOS D active Not Available Not Available No t Available docusate sodium 100 mg capsule TOME VINICIUS C PSULA DOS VECES AL D A active Not Available Not Available No t Available gabapentin 300 mg capsule TOME VINICIUS C PSULA WANG VECES AL D A active Not Available Not Available No t Available omeprazole 20 mg capsule,del ayed release TOME 1 C PSULA POR V A ORAL TODOS LOS D DESPU S DE LAS COMIDAS active Not Available Not Available No t Available ibuprofen 600 mg tablet TOME VINICIUS TABLETA CADA SEIS HORAS CUANDO SEA NECESARIO PARA EL DOLOR active Not Available Not Available No t Available letrozole 2.5 mg tablet TAKE 1 TABLET BY MOUTH DAILY active Not Available Not Available No t Available ipratropium bromide 42 mcg (0.06 %) nasal spray SPRAY TO 2 SPRAYS INTO EACH NOSTRIL TWICE A DAY FOR RHINORRHE A active Not Available Not Available No t Available cefdinir 300 mg capsule TOME VINICIUS C PSULA DOS VECES AL D A FOR 5 DAYS 05/30 completed Not Available Not Available Not Available Gas Relief Extra Strength 125 mg chewable tablet CHEW 1 TABLET (125 MG) EVERY 6 (SIX) HOURS IF NEEDED FOR FLATULENC E. active Not Available Not Available No t Available Calcium 500 With D 500 mg-10 mcg (400 unit) tablet TOME 1 TABLETA POR V A ORAL DOS VECES AL D A active Not Available Not Available No t Available Gavilax 17 gram/dose oral powder MIX 17 GRAMS IN LIQUID DIRECTED AND TAKE BY MOUTH ONCE A DAY active Not Available Not Available No t Available Eliquis 5 mg tablet TOME VINICIUS TABLETA DOS VECES AL D A active Not Available Not Available No t Available Daily-Yousif (with folic acid) 400 mcg tablet TOME VINICIUS TABLETA TODOS LOS D CON ALIMENTO active Not Available Not Available No t Available Vitals Date Recorded Heart rate Respiratory rate Body temperature Oxygen saturation Oxygen saturation in Arterial blood by Pulse oximetry Systolic blood pressure Diastolic blood pressure Provider Name and Address Organization Details Last Updated DateTime 4 74 /min 16 /min 97.9 [degF] 98 % 98 % 110 mm[Hg] 70 mm[Hg] Not Available [facility] - production 4 18:41:31 Social History None recorded. Functional Status None recorded. Mental Status None recorded. Family History Nothing Reported. Medical History No medical history recorded. Gynecological HistoryNo gynecological history recorded. Obstetrics History GPAL:G 0 P 0 0 0 0 Past Encounters Encounter ID Performer Location Encounter Start Date Encounter Closed Date Diagnosis/Indication Diagnosis SNOMED-CT Code Diagnosis ICD10 Code Diagnosis Note [id number] Magali Doyle MD [facility] [address] [place] [phone] 05/30/2024 18:41:29 06/01/2024 13:06:18 Candidal vulvovaginitis 10159354 B37.31 Health Concerns Section Related Observation LastModified by Organization Detai ls LastModified Time None Recorded Concern Status LastModified by Organization Details LastModified Time None Recorded Advance Directives Directive None Recorded Payers Encounter Date Sequence Insurance Name Policy Number Policy Nieto Covered Member ID Nieto Member ID Guarantor Name 05/30/[address] [facility] - DOS ON OR AFTER 2022 - DUAL ELIGIBLE - [employer] OPTIONS AND ONE CARE (MEDICARE REPLACEMENT/ADV ANTAGE - HMO) Lacey Goznales [id number] Lacey Gonzales Notes Date Note Type Note Provider Name and Address Organization Details Recorded Time 05/30/2024 text/html HPI: Patient with reports of burning with urination and stinging. Has also vaginal itching was seen by PCP and cream was to be ordered on 05/25/24 no order on file at time of call. .................. .................. .................. .................. .................. .................. .................. ............... [facility] Nurse Triage Notes (Owen Schmid): Chief Complaints: UTI/Pyelonephritis PMH: Diabetes, Hypertension Allergies: Penicillin Comments: HPI reviewed by this RN, no further information needed to process visit -Eric Schmid RN .................. .................. .................. .................. .................. .................. .................. ............... Egg Setter Note From Jarad Banks: [facility] visit for female pt. Pt Vietnamese speaking only so sap business analyst was used. Pt presents complaining of discomfort relating to vaginal yeast infection. Pt was seen 5 days ago and diagnosed with yeast infection. Pt was prescribed antifungal cream but has been unable to make it to pharmacy. V/S taken as listed. Pt afebrile. Pt uncertain which pharmacy and which med was sent for her. Consulted with [facility] Dr. Doyle who prescribed antifungal cream and sent to [facility] for pt to have TIP FIXER pickup. Pt education provided. .................. .................. .................. .................. .................. .................. .................. ............... Disposition: Fulfilled Magali Doyle MD [address] [place] [address],[address] [facility], [place], [phone], [facility] - AND[facility] RODAS 05/30/2024 23:22:53 OBGyn Episode No OBEpisode recorded.
--- OUTSIDE RECORDS SUMMARY | 2024-11-25 15:14 | XMS_ITS | Clinical Summary ---
Author Organization [facility] Address [address] [place] [address] Phone Care Team Providers Care Rehab Department Manager Name Role Phone Tabitha Gerard MD Primary Care Provider +1- [phone] Allergies No known active allergies Medications ammonium lactate (LAC-HYDRIN) 12 % lotion Apply to soles of feet daily. 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); Arthritis of both feet; Hammertoes of both feet; Dermatophytosis, nail from Last 3 Months Social History Tobacco Use Types Packs/Day Years Used Date Smoking Tobacco: Never Assessed Comments Unknown Sex and Gender Information Value Date Recorded Sex Assigned at Not on file Legal Sex Female 3:33 PM EST Gender Identity Not on file Sexual Orientation Not on file Last Filed Vital Signs Vital Sign Reading Time Taken Comments Blood Pressure - - Pulse - - Temperature - - Respiratory Rate - - Oxygen Saturation - - Inhaled Oxygen Concentration - - Weight 68 kg (150 lb) 09/26/2024 2:36 PM EST Height 165.1 cm (5' 5 ) 07/25/2024 3:06 PM EST Body Mass Index 24.96 07/25/2024 3:06 PM EST Plan of Treatment Upcoming Encounters Date Type Department Care Team ([facility] Contact Info) Description 11/28/2024 1:30 PM EDT Office Visit Orthopedic [facility] [address] [phone] Jignesh Mckeon DPM [address] [address] Health Maintenance Due Date Last Done Comments Breast Cancer Screening 1950 Diabetes: Annual GFR (Glomerular Filtration Rate) 1951 Diabetes: Annual Foot Exam 1961 Diabetes: Annual Retina Eye Exam 1961 Colorectal Cancer Screening: Colonoscopy 08/20/2022 Falls Risk Assessment 08/20/2022 Hepatitis C Screening 08/20/2022 Medicare Annual Wellness Visit 08/20/2022 Osteoporosis Screening (Bone Density Screening) 08/20/2022 Social Influencers of Health Screening 08/20/2022 COVID-19 Vaccine ( season) 2024 09/18/2023, 03/16/2023, 09/24/2022, Additional history exists Influenza Vaccine (#1) 2024 , 07/10/2022, 07/14/2019, Additional history exists Diabetes: Annual Urine Albumin-Creatinine Ratio (uACR) 06/29/2024 Hypertension/CHF/CAD Annual BMP Blood Test 07/25/2024 Diabetes: Blood Sugar Control Test (HGBA1C) 11/22/2024 05/25/2024 Depression Screening 12/08/2024 12/09/2023 DTaP,Tdap,and Td Vaccines (4 - Td or Tdap) 10/25/2025 10/25/2015, 08/31/2014, 07/13/2003 Cholesterol Screening (Lipid Panel) 12/15/2028 12/16/2023 Pneumococcal Vaccine: 50+ Years Completed 07/22/2017, 08/22/2016, 07/08/2002 Zoster Vaccines Completed 04/16/2023, 05/02/2023, 08/31/2014 RSV Immunization Patients 60+ Years Old Completed 01/01/2024 Hepatitis B Vaccines Completed 05/25/2024, 12/09/2023, 09/09/2023 HIB Vaccines Aged Out No longer eligi ble based on patient's age to complete this topic HPV Vaccines Aged Out No longer eligi ble based on patient's age to complete this topic Hepatitis A Vaccines Aged Out No long er eligible based on patient's age to complete this topic IPV Vaccines Aged Out No longer eligi ble based on patient's age to complete this topic MMR Vaccines Aged Out No longer eligi ble based on patient's age to complete this topic Meningococcal ACWY Vaccine Aged Out N o longer eligible based on patient's age to complete this topic Meningococcal B Vacine Aged Out No lo nger eligible based on patient's age to complete this topic RSV Immunization Patients Under 20 months Aged Out No longer eligible based on patient's age to complete this topic Varicella Vaccines Aged Out No longer eligible based on patient's age to complete this topic Insurance [employer] MEDICARE Member Subscriber Plan / Payer (Ef fective 2022-Present) Name:Lacey Gonzales Relation to Subscriber:Self Name:Lacey Gonzales Payer ID:[id number] Group ID:[id number] Type:Not on file Address: [place] [address] [address] [id number] Care Teams Rehab Department Manager Relationship Specialty Start Date End Date Rajani, MD Tabitha [address] [place] [phone] PCP - General 02/09/24
--- OUTSIDE RECORDS SUMMARY | 2024-11-25 15:14 | XMS_ITS | Encounter Summary ---
Author Organization [employer] Address [address] [facility] 7t [place] [address] Care Team Providers Care Folding Machine Setter Name Role Phone Tabitha Gearrd MD Primary Care Provider [phone]- [phone] Ismael Stout MD Unavailable [phone] Milagro Humphrey MD Unavailable [phone] Reason for Visit * Reason Onset Date Comments Hospital Follow-up 10/08/2023 Encounter Details Date Type Department Care Team (Late st Contact Info) Description 10/08/2023 Telephone [facility] [address] [place], [place] [phone] Tabitha Gerard MD [address] [place], [place] [phone] Hospital Follow-up Social History Tobacco Use Types Packs/Day Years Used Date Smoking Tobacco: Never Smokeless Tobacco: Never Housing Stability Answer Date Recorded What is your housing situation today? I have housing today, but I am worried about losing housing in the future 07/07/[address] you li ve. Do you have problems with any of the following? None of the above 07/07/2023 Food Insecurity Answer Date Recorded Within the past 12 months, y ou worried that your food would run out before you got money to buy more: Never True 07/07/2023 Within the past 12 months,th e food you bought just didn't last and you didn't have enough money to get more: Never True Transportation Answer Date Recorded In the past 12 months, has l ack of transportation kept you from medical appts, meetings, work or from getting things needed for daily living? No 07/07/2023 Utilities Answer Date Recorded In the past 12 months, has t he electric, gas, oil or water company threatened to shut off services in your home? No 07/07/2023 Depression Answer Date Recorded Patient Health Questionnaire-2 Score 0 09/24/2022 Comments Unknown Sex and Gender Information Value Date Recorded Sex Assigned at Female 07/21/2022 10:14 AM EDT Legal Sex Female 10:14 AM EDT Gender Identity Female 07/21/2022 10:14 AM EDT Sexual Orientation Straight 07/21/2022 10 :14 AM EDT documented as of this encounter Miscellaneous Notes * Telephone Encounter - Amy Agrawal RN - 10/15/2023 4:48 PM EST TC returned to patient. Patient requesting soonest available HFU. Scheduled for , 10/22/23, @2:45pm with Dr. Hao Santana. Patient confirms that emergency gallbladder surgery performed at [facility] in [place]. No notes in chart. TC placed to [facility] at [phone] to request records. Medical records office closed for the day. Message reports that request for records must befaxed to [phone]. Routing back to green team nurses to fax request for records as this telegraphic typewriter operator has no access to fax. Tc from pt requesting a HDF appt. Hospital: [facility] Date of admission: 09/27/2023 Discharge date: 09/30/2023 Diagnosed: Gallbladder Surgery * Telephone Encounter - Kori Johnson - 10/08/2023 4:13 PM EST Tc from pt requesting a HDF appt. Hospital: [facility] Date of admission: 09/27/2023 Discharge date: 09/30/2023 Diagnosed: Gallbladder Surgery documented in this encounter Plan of Treatment Upcoming Encounters Date Type Department Care Team (Late st Contact Info) Description 11/30/2024 2:00 PM EDT Office Visit [facility] [address] [place] [address] Tabitha Gerard MD [address] [place] [address] documented as of this encounter Visit Diagnoses Not on filedocumented in this encounter Care Teams Folding Machine Setter Relationship Specialty Start Date End Date Tabitha Gerard MD [address] [place] [address] PCP - General Family Medicine 09/21/18 Ismael Stout MD [address] [place] [address] Cardiology 09/07/24 Milagro Humphrey MD [address] [place] [address] Hematology and Oncology 09/09/24 [facility] 09/27/24 documented as of this encounter
--- OUTSIDE RECORDS SUMMARY | 2024-11-25 15:14 | XMS_ITS | Encounter Summary ---
Author Organization [employer] [facility] Address [address] 7t [place] [address] Care Team Providers Care Boxer Operator Name Role Phone Tabitha Gerard MD Primary Care Provider [phone] Ismael Stout MD Unavailable [phone] Milagro Humphrey MD Unavailable [phone] Reason for Visit * Reason Comments Med Refill Encounter Details Date Type Department Care Team ([facility] st Contact Info) Description 11/14/2023 Refill [facility] [address] [place] [address] Tabitha Gerard MD 230 [place], [place] [phone] Dyslipidemia Social History Tobacco Use Types Packs/Day [...] Description 11/30/2024 2:00 PM EDT Office Visit [facility] [address] [place] [address] Tabitha Gerard MD [address] [place] [address] documented as of this encounter Visit Diagnoses Diagnosis Dyslipidemia Other and unspecified hyperlipidemia documented in this encounter Care Teams Boxer Operator Relationship Specialty Start Date End Date Tabitha Gerard MD [address] [place] [address] PCP - General Family Medicine 09/21/18 Ismael Stout MD [address] [place] [address] Cardiology 09/07/24 Milagro Humphrey MD [address] [place] [address] Hematology and Oncology 09/09/24 [place] [facility] 09/27/24 documented as of this encounter
--- OUTSIDE RECORDS SUMMARY | 2024-11-25 15:14 | XMS_ITS | Encounter Summary ---
Author Organization [employer] Address [address] [facility] 7t [place] [address] Care Team Providers Care Dial Marker Name Role Phone Tabitha Gerard MD Primary Care Provider [phone]- [phone] Ismael Stout MD Unavailable [phone] Milagro Humphrey MD Unavailable [phone] Encounter Details Date Type Department Care Team (Late st Contact Info) Description 08/20/2023 Orders Only [facility] [address] [place], [place] [phone] Tabitha Gerard MD [address] [place], [place] [phone] Social History Tobacco Use Types Packs/Day Years [...] Description 11/30/2024 2:00 PM EDT Office Visit [facility] [address] [place] [address] Tabitha Gerard MD [address] [place] [address] documented as of this encounter Procedures Procedure Name Priority Date/Time Associated Diagnosis Comments COLONOSCOPY Routine 08/11/2023 documented in this encounter Results * Colonoscopy (08/11/2023) Colonoscopy Normal Normal Comment:hyperplastic polyp w [facility] Dr. Clarke Historical Provider HEALTH MAINTENANCE Final Result documented in this encounter Visit Diagnoses Not on filedocumented in this encounter Care Teams Dial Marker Relationship Specialty Start Date End Date Tabitha Gerard MD [address] [place] [address] PCP - General Family Medicine 09/21/18 Ismael Stout MD [address] [place] [address] Cardiology 09/07/24 Milagro Humphrey MD [address] [place] [address] Hematology and Oncology 09/09/24 [place] [facility] 09/27/24 documented as of this encounter
--- OUTSIDE RECORDS SUMMARY | 2024-11-25 15:14 | XMS_ITS | Encounter Summary ---
Author Organization [employer] Address [address] [facility] 7t [place] [address] Care Team Providers Care Bulk Intake Worker Name Role Phone Tabitha Gerard MD Primary Care Provider [phone] Ismael Stout MD Unavailable [phone] Milagro Humphrey MD Unavailable [phone] Reason for Visit * Reason Comments Med Refill Encounter Details Date Type Department Care Team (Late st Contact Info) Description 02/11/[address] [facility] [address] [place] [address] Tabitha Gerard MD [address] [place] [address] Dyslipidemia Social History Tobacco Use Types Packs/Day [...] Description 11/30/2024 2:00 PM EDT Office Visit [facility] [address] [place] [address] Tabitha Gerard MD [address] [place] [address] documented as of this encounter Visit Diagnoses Diagnosis Dyslipidemia Other and unspecified hyperlipidemia documented in this encounter Additional Health Concerns Assessment Noted Time PHQ-9 Depression Total Score: 0 12/09/19 2:18 PM EDT documented as of this encounter Care Teams Bulk Intake Worker Relationship Specialty Start Date End Date Tabitha Gerard MD [address] [place] [address] PCP - General Family Medicine 09/21/18 Ismael Stout MD [address] [place] [address] Cardiology 09/07/24 Milagro Humphrey MD [address] [place] [address] Hematology and Oncology 09/09/24 [place] 09/27/24 documented as of this encounter
--- OUTSIDE RECORDS SUMMARY | 2024-11-25 15:14 | XMS_ITS | Encounter Summary ---
Author Organization [employer] Address [address] [facility] 7t [place] [address] Care Team Providers Care Floor Finisher Helper Name Role Phone Tabitha Gerard MD Primary Care Provider [phone] Ismael Stout MD Unavailable [phone] Milagro Humphrey MD Unavailable [phone] Reason for Visit * Reason Comments Med Change Request Encounter Details Date Type Department Care Team ([facility] st Contact Info) Description 02/13/[address] [facility] MED[facility]INE [address] [place] [address] Tabitha Gerard MD [address] [place], [place] [phone] Acute URI Social History Tobacco Use Types [...] encounter Miscellaneous Notes * Telephone Encounter - Tabitha Gerard MD - 02/16/2024 7:46 PM EDT No longer indicated, prescribed for acute uri documented in this encounter Plan of Treatment Upcoming Encounters Date Type Department Care Team (Late st Contact Info) Description 11/30/2024 2:00 PM EDT Office Visit [facility] MED[facility] [address] [place] [address] Tabitha Gerard MD [address] [place] [address] documented as of this encounter Visit Diagnoses Diagnosis Acute URI Acute upper respiratory infections of unspecified site documented in this encounter Additional Health Concerns Assessment Noted Time PHQ-9 Depression Total Score: 0 12/09/19 24 2:18 PM EDT documented as of this encounter Care Teams Floor Finisher Helper Relationship Specialty Start Date End Date Tabitha Gerard MD [address] [place] [address] PCP - General Family Medicine 09/21/18 Ismael Stout MD [address] [place] [address] Cardiology 09/07/24 Milagro Humphrey MD [address] [place] [address] Hematology and Oncology 09/09/24 [facility] 09/27/24 documented as of this encounter
--- OUTSIDE RECORDS SUMMARY | 2024-11-25 15:14 | XMS_ITS | Encounter Summary ---
Author Organization [employer] Address [address] [facility] 7t [place] [address] Care Team Providers Care Tax Commissioner Name Role Phone Tabitha Gerard MD Primary Care Provider [phone] Ismael Stout MD Unavailable [phone] Milagro Humphrey MD Unavailable [phone] Reason for Visit * Reason Comments Med Refill Encounter Details Date Type Department Care Team (Late st Contact Info) Description 11/09/2024 Refill [facility] [address] [place] [address] Tabitha Gerard MD [address] [place] [address] Pain; Paroxysmal atrial fibrillation (CMS/HCC) Social History Tobacco Use Types Packs/Day Years [...] 2:00 PM EDT Office Visit [facility] [address] [place] [address] Tabitha Gerard MD [address] [place] [address] documented as of this encounter Visit Diagnoses Diagnosis Pain Generalized pain Paroxysmal atrial fibrillation (CMS/HCC) Atrial fibrillation documented in this encounter Additional Health Concerns Assessment Noted Time PHQ-9 Depression Total Score: 0 12/09/19 2:18 PM EDT documented as of this encounter Care Teams Tax Commissioner Relationship Specialty Start Date End Date Tabitha Gerard MD [address] [place] [address] PCP - General Family Medicine 09/21/18 Ismael Stout MD [address] [place] [address] Cardiology 09/07/24 Milagro Humphrey MD [address] [place] [address] Hematology and Oncology 09/09/24 [place] 09/27/24 documented as of this encounter
--- OUTSIDE RECORDS SUMMARY | 2024-11-25 15:14 | XMS_ITS | Encounter Summary ---
Author Organization [employer] [facility] Address [address] [place] [address] 7[place] [address] Care Team Providers Care Treating Engineer Helper Name Role Phone Tabitha Gerard MD Primary Care Provider [phone] Ismael Stout MD Unavailable [phone] Milagro Humphrey MD Unavailable [phone] Reason for Visit * Reason Comments Med Refill Encounter Details Date Type Department Care Team ([facility] Contact Info) Description 10/24/2022 Refill [facility] MEDICINE [address] [place] [address] Tabitha Gerard MD [address] [place] [address] Constipation, unspecified constipation type Social History Tobacco Use Types Packs/Day Years Used Date Smoking Tobacco: Never Smokeless Tobacco: Never Depression Answer Date Recorded Patient Health Questionnaire-2 Score 0 09/24/2022 Comments Unknown Sex and Gender Information Value Date Recorded Sex Assigned at Female 07/21/2022 10:14 AM EDT Legal Sex Female 10:14 AM EDT Gender Identity Female 07/21/2022 10:14 AM EDT Sexual Orientation Straight 07/21/2022 10 :14 AM EDT COVID-19 Exposure Response Date Recorded In the last 10 days, have yo u been in contact with someone who was confirmed or suspected to have Coronavirus/COVID-19? No / Unsure 10/22/2022 9:31 AM EST documented as of this encounter Plan of Treatment Upcoming Encounters Date Type Department Care Team ([facility] Contact Info) Description 11/30/2024 2:00 PM EDT Office Visit [facility] MEDICINE [address] [place] [address] Tabitha Gerard MD [address] [place] [address] documented as of this encounter Visit Diagnoses Diagnosis Constipation, unspecified constipation type documented in this encounter Care Teams Treating Engineer Helper Relationship Specialty Start Date End Date Tabitha Gerard MD [address] [place] [address] PCP - General Family Medicine 09/21/18 Ismael Stout MD [address] [place] [address] Cardiology 09/07/24 Milagro Humphrey MD [address] [place] [address] Hematology and Oncology 09/09/24 [facility] 09/27/24 documented as of this encounter
--- OUTSIDE RECORDS SUMMARY | 2024-11-25 15:14 | XMS_ITS | Encounter Summary ---
Author Organization [employer] Address [address] [facility] 7t [place] [address] Care Team Providers Care Special Machine Operator Name Role Phone Tabitha Gerard MD Primary Care Provider [phone] Ismael Stout MD Unavailable [phone] Milagro Humphrey MD Unavailable [phone] Reason for Visit * Reason Comments Pre-visit Planning SDOH Screening negat oh and Tobacco screening negative Encounter Details Date Type Department Care Team (Late st Contact Info) Description 11/18/2024 Patient Outreach [facility] MED[facility]INE [address] [place], [place] [phone] Tabitha Gerard MD [address] [place], [place] [phone] Pre-visit Planning (SDOH Screening negative and Tobacco screening negative) Social History Tobacco Use Types Packs/Day Years [...] Recorded Patient Health Questionnaire-2 Score 0 12/09/2023 Internet Access Answer Date Recorded Internet Access Q1 Yes 11/18/2024 Internet Access Q2 Not on file 11/18/2024 Comments Unknown Sex and Gender Information Value Date Recorded Sex Assigned at Female 07/21/2022 10:14 AM EDT Legal Sex Female 10:14 AM EDT Gender Identity Female 07/21/2022 10:14 AM EDT Sexual Orientation Straight 07/21/2022 10 :14 AM EDT documented as of this encounter Progress Notes * Aneta Tomas - 11/18/2024 12:23 PM EST MEDINA Maier placed successful outbound call to patient for pre-visit planning. Patient name and confirmed. Patient confirms appt date and time, and has transportation arrangements. Biggest concern for appointment at this time is no concerns. Patient advised to bring to appointment a photo id and insurance card. Appropriate screenings completed in anticipation of appointment. documented in this encounter Plan of Treatment Upcoming Encounters Date Type Department Care Team ([facility] st Contact Info) Description 11/30/2024 2:00 PM EDT Office Visit [facility] [address] [place] [address] Tabitha Gerard MD [address] [place] [address] documented as of this encounter Visit Diagnoses Not on filedocumented in this encounter Additional Health Concerns Assessment Noted Time PHQ-9 Depression Total Score: 0 12/09/19 24 2:18 PM EDT documented as of this encounter Care Teams Special Machine Operator Relationship Specialty Start Date End Date Tabitha Gerard MD [address] [place] [address] PCP - General Family Medicine 09/21/18 Ismael Stout MD [address] [place] [address] Cardiology 09/07/24 Milagro Humphrey MD [address] [place] [address] Hematology and Oncology 09/09/[address] [place] [address] [facility] 09/27/24 documented as of this encounter
--- OUTSIDE RECORDS SUMMARY | 2024-11-25 15:14 | XMS_ITS | Clinical Summary ---
Author Organization [employer] Address [address] [place] [address] [address] [place] [address] Care Team Providers Care Supervisor [place] Department Name Role Phone Tabitha Gerard MD Primary Care Provider [phone] Ismael Stout MD Unavailable [phone] Milagro Humphrey MD Unavailable [phone] Allergies Active Allergy Reactions Criticality Noted Date Comments Penicillin G 01/07/2018 Medications Blood Glucose Monitoring Suppl (ONE TOUCH ULTRA 2) w/Device kitIndications:Typ e 2 diabetes mellitus with hyperosmolarity without coma, without long-term current use of insulin ([facility]) USE DIRECTED 1 kit 023 Active Multiple Vitamin (Daily-Yousif Multivitamin) tabletIndications: Vitamin deficiency TAKE 1 TABLET BY MOUTH EVERY DAY WITH FOOD 90 tablet 3 024 Active docusate sodium (Colace) 100 MG capsuleIndications :Constipation, unspecified constipation type TAKE 1 CAPSULE BY MOUTH TWICE A DAY 180 capsule 3 024 Active lisinopril 10 MG tabletIndications: Primary hypertension TAKE 1 TABLET BY MOUTH EVERY DAY 90 tablet 3 024 Active gabapentin (Neurontin) 300 MG capsuleIndications :Pain TOME VINICIUS CAPSULA WANG VECES AL JOSE DE JESUS 90 capsule 4 024 Active omeprazole (PriLOSEC) [address] capsuleIndications :Gastroesophageal reflux disease, unspecified whether esophagitis present TAKE 1 CAPSULE BY MOUTH BEFORE A MEAL 90 capsule 3 024 Active sennosides (Senna-Time) 8.6 MG tabletIndications: Constipation, unspecified constipation type TAKE 2 TABLETS BY ORAL ROUTE EVERY DAY NEEDED FOR CONSTIPATION NEEDED 60 tablet 3 024 Active ammonium lactate (Lac-Hydrin) 12 % lotionIndications: Dry skin Apply to soles of feet daily. At night wear socks to bed 024 Active Calcium Carb-Cholecalcifer ol (Oyster Shell Calcium/D3) 500-10 MG-MCG tabletIndications: Post-menopausal Take 1 tablet by mouth 2 times daily. 180 tablet 3 024 Active clotrimazole (Lotrimin) 1 % vaginal creamIndications:V ulvovaginal Candidiasis INSERT ONE APPLICATOR PER VAGINA AT BEDTIME FOR 7 NIGHTS 45 g 024 Active Gas Relief Extra Strength 125 MG chewable tabletIndications: Bloating CHEW 1 TABLET (125 MG) EVERY 6 (SIX) HOURS IF NEEDED FOR FLATULENCE. 30 tablet 024 Active carvedilol (Coreg) 6.25 MG tabletIndications: Benign hypertension Take by mouth with breakfast and with evening meal. Active atorvastatin (Lipitor) 80 MG tabletIndications: Dyslipidemia Take 80 mg by mouth Once per day. Active ipratropium (Atrovent) 0.06 % nasal sprayIndications:A cute URI SPRAY TO 2 SPRAYS INTO EACH NOSTRIL TWICE A DAY FOR RHINORRHEA 45 mL 025 Active acetaminophen (Tylenol 8 Hour) 650 MG ER tabletIndications: Pain TAKE 1 TABLET BY MOUTH EVERY 8 HOURS NEEDED FOR PAIN AND/OR FEVER 40 tablet 025 Active apixaban (Eliquis) 5 MG tabletIndications: Paroxysmal atrial fibrillation (CMS/HCC) TOME 1 TABLETA POR VIA ORAL DOS VECES AL JOSE DE JESUS 60 tablet 025 Active letrozole (Femara) 2.5 MG chemo tabletIndications: Infiltrating ductal carcinoma of left female breast (CMS/HCC) Take by mouth Once per day. Take with or without food. Active glucose blood (OneTouch Ultra) test strip insert 1 by into machine route every day 022 2024 Discontinued(M ed list cleanup (will not trigger notification to Pharmacy)) Lancets (Zumobitouch ultrasoft) lancets 1 each by Other route if needed. Use as instructed 2024 Discontinued(M ed list cleanup (will not trigger notification to Pharmacy)) cholecalciferol (Vitamin D-3) 50 MCG (1999) capsule PT REPORTS PURCHASING OTC 2024 Discontinued(M ed list cleanup (will not trigger notification to Pharmacy)) alpha tocopherol (Vitamin E) 400 units capsule PT REPORTS PURCHASING OTC 2024 Discontinued(M ed list cleanup (will not trigger notification to Pharmacy)) baclofen (Lioresal) 10 MG tablet TOME VINICIUS TABLETA TODOS LOS D AL ACOSTARSE 022 2024 Discontinued(M ed list cleanup (will not trigger notification to Pharmacy)) letrozole (Femara) 2.5 MG chemo tablet 2024 Discontinued carvedilol (Coreg) 6.25 MG tablet TOME VINICIUS TABLETA DOS VECES AL D A CON ALIMENTO FOR 30 DAYS 023 2024 Discontinued(M ed list cleanup (will not trigger notification to Pharmacy)) Bisacodyl EC 5 MG EC tablet TAKE 2 TABS AT NOON THE DAY BEFORE YOUR COLONOSCOPY 023 2024 Discontinued atorvastatin (Lipitor) 80 MG tablet Take 1 tablet by mouth Once per day. 024 2024 Discontinued(M ed list cleanup (will not trigger notification to Pharmacy)) GaviLAX 17 GM/SCOOP powder Take 17 g by mouth 1 (one) time. 2024 Discontinued(M ed list cleanup (will not trigger notification to Pharmacy)) ipratropium (Atrovent) 0.06 % nasal sprayIndications:A cute URI SPRAY TO 2 SPRAYS INTO EACH NOSTRIL TWICE A DAY FOR RHINORRHEA 15 mL 1 024 2024 Discontinued acetaminophen (Tylenol 8 Hour) 650 MG ER tabletIndications: Pain TAKE 1 TABLET BY ORAL ROUTE EVERY 8 HOURS NEEDED FOR PAIN AND/OR FEVER 40 tablet 024 2024 Discontinued atorvastatin (Lipitor) 40 MG tablet TAKE 1 TABLET (40 MG) BY MOUTH ONCE PER DAY. 024 2024 Discontinued(M ed list cleanup (will not trigger notification to Pharmacy)) apixaban (Eliquis) 5 MG tabletIndications: Paroxysmal atrial fibrillation (CMS/HCC) TAKE 1 TABLET BY MOUTH TWICE A DAY 60 tablet 025 2024 Discontinued atorvastatin (Lipitor) 40 MG tablet Take 40 mg by mouth Once per day. 2024 Discontinued(M ed list cleanup (will not trigger notification to Pharmacy)) clobetasol (Temovate) 0.05 % ointmentIndication s:Rash Apply topically 2 times daily for 7 days. 15 g 1 025 2024 Active Problems Patient Care Coordination No te Formatting of this note migh t be different from the original. [facility] [employer], member services number [phone], provider services line, , option 4 [employer] Associate Agency: [employer] Problem Noted Date Diagnosed Date Rash 11/16/2024 Assessment & Plan (11/16/2024 2:56 PM EST): -consistent with allergic reaction -trial of clobetasol oint 11/16/24 Overweight 05/25/2024 Osteopenia of multiple sites 02/24/2024 Overview (09/09/2024): -Bone density test performed 11/[address] Escamilla showed osteopenia. -She started denosumab 60 mg subQ every 6 months with oncology from 08/29/2022. She will receive this until 09/09/2025. Cardiac risk counseling 02/18/2024 Overview (02/18/2024): Calculated 02/18/24: high risk The 10-year ASCVD risk score (Maryjo MCGARRY, et al., 2019) is: 25.4% Values used to calculate the score: Age: 73 years Sex: Female Is Non- : No Diabetic: Yes Tobacco smoker: No Systolic Blood Pressure: 123 mmHg Is BP treated: Yes HDL Cholesterol: 56 mg/dL Total Cholesterol: 180 mg/dL Lab Results Component Value Date LDLCHOL 137 (H) 09/24/2022 LDLCHOL 69 08/23/2021 -Tobacco cessation: not applicable -Statin therapy: atorvastatin 40mg , recheck FLP and consider increase statin if LDL > 100 -Importance of moderate physical activity and nutrition interventions discussed. History of cholecystectomy 10/22/2023 Assessment & Plan (10/22/2023 7:40 PM EST): Today CBG today 161 ---08/2023 Hb1AC 7 Pt reports to be feeling well ,denies any concerning GI,CV nor neurologic symptoms -px simethicone prn for bloating -advised pt and daughter to resume apixiban .Advised that needs to avoid NSAIDS -denies taking anymore -alarm signs and symptoms discussed -pt has apt w sales and marketing specialist for f up in 12/2023 -request MA today -Livier Vargas to try to obtain discharge records ,images and labs done at [facility] in [place] Anticoagulated 09/09/2023 Overview (09/09/2023): On apixaban for atrial fibrillation. Dental and cutaneous procedures are generally associated with a low risk of bleeding and anticoagulation can be continued in most patients during dental procedures. If the number of extractions is unclear, it is reasonable to delay the morning dose and decide whether to administer the dose after the procedure (administer for extractions of one to three teeth; hold for extractions of more than three teeth). An exception is multiple tooth extractions, which would be considered higher bleeding risk. Preventative health care 03/16/2023 Overview (05/25/2024): -next physical exam due after 05/25/25 -eye care facilitated by [facility] optgopal, seen 04/23/23. -dental home is [facility], encouraged to make apt 03/16/2023 -health care proxy filed 12/09/2023 Assessment & Plan (05/25/2024 3:51 PM EDT): -next physical exam due after 05/25/25 -eye care facilitated by [facility] optho, seen 04/23/23. -dental home is [facility], encouraged to make apt 03/16/2023 -health care proxy filed 12/09/2023 Assessment & Plan (12/09/2023 2:38 PM EDT): -next physical exam due after March 2024 -eye care facilitated by [facility] optgopal, seen 04/23/23. -dental home is [facility], encouraged to make apt 03/16/2023 -health care proxy filed 12/09/2023 Assessment & Plan (03/16/2023 10:54 AM EDT): -next physical exam due after 03/16/2024 -eye care facilitated by [facility] optho, referral placed 03/16/2023 -dental home is [facility], encouraged to make apt 03/16/2023 Colon cancer screening 09/24/2022 Overview (09/09/2023): -colonoscopy with Tuyyab Clarke 08/11/23polyp was hyperplastic. Assessment & Plan (09/09/2023 12:21 PM EST): -colonoscopy with Tuyyab Clarke 08/11/23polyp was hyperplastic. Assessment & Plan (09/24/2022 10:29 AM EST): Continued to decline colonoscopy but agrees to collogued. Referral placed 09/24/2021 At moderate risk for fall 09/24/2022 Overview (09/09/2023): -04/2023 we wrote multiple DME requested by [facility]. Assessment & Plan (09/09/2023 12:21 PM EST): -04/2023 we wrote multiple DME requested by [facility]. Acquired trigger finger of both middle fingers 0 09/24/2022 Assessment & Plan (09/24/2022 10:30 AM EST): She declines treatment. Advised to call if she wants referral. Dyslipidemia 09/03/2022 Overview (12/09/2023): Lab Results Component Value Date CHOLESTEROL 245 (H) 09/24/2022 LDLCHOL 137 (H) 09/24/2022 LDLCHOL 69 08/23/2021 LDLCHOL 90 02/01/2021 TRIG 291 (H) 09/24/2022 HDLCHOL 63 09/24/2022 CHOLHDLRAT 3.9 09/24/2022 -continue atorvastatin 40mg daily Assessment & Plan (12/09/2023 2:41 PM EDT): Lab Results Component Value Date CHOLESTEROL 245 (H) 09/24/2022 LDLCHOL 137 (H) 09/24/2022 LDLCHOL 69 08/23/2021 LDLCHOL 90 02/01/2021 TRIG 291 (H) 09/24/2022 HDLCHOL 63 09/24/2022 CHOLHDLRAT 3.9 09/24/2022 -continue atorvastatin 40mg daily Assessment & Plan (09/07/2023 10:03 AM EST): Lab Results Component Value Date TRIG 291 (H) 09/24/2022 -continue lifestyle modifications -continue atorvastatin 40mg daily Assessment & Plan (03/16/2023 1:30 PM EDT): Lab Results Component Value Date CHOLESTEROL 245 (H) 09/24/2022 LDLCHOL 137 (H) 09/24/2022 LDLCHOL 69 08/23/2021 LDLCHOL 90 02/01/2021 TRIG 291 (H) 09/24/2022 HDLCHOL 63 09/24/2022 CHOLHDLRAT 3.9 09/24/2022 -continue lifestyle modifications -continue atorvastatin 40mg daily Gastroesophageal reflux disease 09/03/2022 Atrial fibrillation 10/31/2021 Overview (09/07/2024): Diagnosed 08/23/2021 on exam. Asymptomatic. Rate controlled. -continue Coreg 3.125 bid started 08/23/2021 due to elevated blood pressure -Eliquis (apixaban) 5mg bid started 08/23/2021 (no risk factors for 5mg dose) -Anticoaglaton precautions discussed. -Her atrial fibrillation 30 day loop was removed 03/10/22. -Pt seen Dr Stout 04/02/2022 no signs of Afib on loop monitor 22% PACs -Saw cardio 09/06/[address] Stout Assessment & Plan (11/16/2024 2:55 PM EST): Diagnosed 08/23/2021 on exam. Asymptomatic. Rate controlled. -continue Coreg 3.125 bid started 08/23/2021 due to elevated blood pressure -Eliquis (apixaban) 5mg bid started 08/23/2021 (no risk factors for 5mg dose) -Anticoaglaton precautions discussed. -Her atrial fibrillation 30 day loop was removed 03/10/22. -Pt seen Dr Stout 04/02/2022 no signs of Afib on loop monitor 22% PACs -Saw cardio 09/06/[address] Stout Assessment & Plan (10/22/2023 7:41 PM EST): Resume AC and continue BB -has apt to f up w sales and marketing specialist in 12/2023 Assessment & Plan (09/09/2023 12:19 PM EST): Diagnosed 08/23/2021 on exam. Asymptomatic. Rate controlled. -continue Coreg 3.125 bid started 08/23/2021 due to elevated blood pressure -Eliquis (apixaban) 5mg bid started 08/23/2021 (no risk factors for 5mg dose) -Anticoaglaton precautions discussed. -Her atrial fibrillation 30 day loop was removed 03/10/22. -Pt seen Dr Stout 04/02/2022 no signs of Afib on loop monitor 22% PACs -Saw cardio 07/09/[address] Stout Assessment & Plan (09/15/2022 11:58 AM EST): Diagnosed 08/23/2021 on exam. Asymptomatic. Rate controlled. -continue Coreg 3.125 bid started 08/23/2021 due to elevated blood pressure -Eliquis (apixaban) 5mg bid started 08/23/2021 (no risk factors for 5mg dose) -Anticoaglaton precautions discussed. -Her atrial fibrillation 30 day loop was removed 03/10/22. -Pt seen Dr Stout 04/02/2022 no signs of Afib on loop monitor 22% PACs Benign hypertension 10/31/2021 Overview (03/16/2023): -Blood pressure is at goal -Continue lifestyle modifications -Continue current medications Assessment & Plan (05/25/2024 2:18 PM EDT): -Blood pressure is at goal -Continue lifestyle modifications -Continue current medications Assessment & Plan (12/09/2023 2:41 PM EDT): -Blood pressure is at goal -Continue lifestyle modifications -Continue current medications Assessment & Plan (10/22/2023 7:40 PM EST): Daughter reports pt's BP is usually < 140/90 Today elevated today at 160/80 manually -will hold on doing changes in her BP meds w stable BP at home -pt to f up w PCP in 4 weeks to monitor BP -advised to bring home BP readings Assessment & Plan (09/07/2023 9:57 AM EST): -Blood pressure is at goal -Continue lifestyle modifications -Continue current medications Assessment & Plan (03/16/2023 1:27 PM EDT): -Blood pressure is at goal -Continue lifestyle modifications -Continue current medications Assessment & Plan (09/24/2022 10:15 AM EST): Currently well controlled. Cervical intraepithelial neoplasia 10/31/2021 Overview (04/08/2024): - PAP 02/2017 ASCUS HPV+ -Colposcopy 05/2017 with CHLOE [address] Terrell [facility] -LEEP 07/2017 with CHLOE 1 result. -Patient PAP 08/09/18 with NIL HPV- -Colposcopy with [facility] Dr. Terrell 11/2020. -Seen on 12/06/2021 by Orin Pugh at [facility]. -PAP NILM, HPV negative 12/06/21 -seen by Orin Pugh [facility] 04/08/24, follow up 1 year Assessment & Plan (12/09/2023 2:51 PM EDT): - PAP 02/2017 ASCUS HPV+ -Colposcopy 05/2017 with CHLOE [address] Terrell [facility] -LEEP 07/2017 with CHLOE 1 result. -Patient PAP 08/09/18 with NIL HPV- -Colposcopy with [facility] Dr. Terrell 11/2020. -Seen on 12/06/2021 by Orin Pugh at [facility]. -PAP NILM, HPV negative 12/06/21 -reports has follow up 12/2023 Assessment & Plan (09/07/2023 9:58 AM EST): - PAP 02/2017 ASCUS HPV+ -Colposcopy 05/2017 with CHLOE [address] Terrell [facility] -LEEP 07/2017 with CHLOE 1 result. -Patient PAP 08/09/18 with NIL HPV- -Colposcopy with [facility] Dr. Terrell 11/2020. -Seen on 12/06/2021 by Orin Pugh at [facility]. -PAP NILM, HPV negative 12/06/21 Assessment & Plan (09/15/2022 12:17 PM EST): - PAP 02/2017 ASCUS HPV+ -Colposcopy 05/2017 with CHLOE [address] Terrell [facility] -LEEP 07/2017 with CHLOE 1 result. -Patient PAP 08/09/18 with NIL HPV- -Colposcopy with [facility] Dr. Terrell 11/2020. -Seen on 12/06/2021 by Orin Pugh at [facility]. -PAP NILM, HPV negative 12/06/21. Infiltrating ductal carcinoma of left female spencer ast 10/31/2021 Overview (09/09/2024): Left breast invasive ductal carcinoma diagnosed 05/2021 -She presented on 03/06/2021 with a rash on her left breast that had been present for a month. Biopsy 03/2021 revealed invasive adenocarcinoma, ER/ME positive HER 2 negative. . -MRI done revealed abnormal enhancement at left nipple. and mammogram 09/2020 and 04/2021 did not reveal any breast mass. -She underwent lumpectomy on 05/24/[address] Charanjit Mathews. Scintigraphy did not reveal any sentinel lymph done. Incision and prove of axilla at time of surgery did not detect any lymph done. Final pathology Invasive ductal carcinoma DCIS, nuclear grade 2, margins negative , AJCC stage pT4b NX, Stage IIIB -She has seen Dr. Humphrey of oncology and completed adjutant chemotherapy with Taxotere/Cytoxan started Jul 2021. -Completed adjuvant radiation therapy with Dr. Zamudio [facility] between October to November 2021. -Genetic testing for inherited breat/ovarian cancer syndrome discussed with oncology declined -She is a candidate for adjuvant hormonal therapy with aromatase inhibitor for 5 years. She started aromatase inhibitor, letrozole 2.5 mg once daily from 12/13/2021. Five years will be 12/13/2026. -Seen by Dr. Mathews 11/25/23 -Saw Oncology on -Mammogram 11/17/23 BIRADS 1 negative Assessment & Plan (11/16/2024 2:55 PM EST): Left breast invasive ductal carcinoma diagnosed 05/2021 -She presented on 03/06/2021 with a rash on her left breast that had been present for a month. Biopsy 03/2021 revealed invasive adenocarcinoma, ER/ME positive HER 2 negative. . -MRI done revealed abnormal enhancement at left nipple. and mammogram 09/2020 and 04/2021 did not reveal any breast mass. -She underwent lumpectomy on 05/24/[address] Charanjit Mathews. Scintigraphy did not reveal any sentinel lymph done. Incision and prove of axilla at time of surgery did not detect any lymph done. Final pathology Invasive ductal carcinoma DCIS, nuclear grade 2, margins negative , AJCC stage pT4b NX, Stage IIIB -She has seen Dr. Humphrey of oncology and completed adjutant chemotherapy with Taxotere/Cytoxan started Jul 2021. -Completed adjuvant radiation therapy with Dr. Zamudio [facility] between October to November 2021. -Genetic testing for inherited breat/ovarian cancer syndrome discussed with oncology declined -She is a candidate for adjuvant hormonal therapy with aromatase inhibitor for 5 years. She started aromatase inhibitor, letrozole 2.5 mg once daily from 12/13/2021. Five years will be 12/13/2026. -Seen by Dr. Mathews 11/25/23 -Saw Oncology on -Mammogram 11/17/23 BIRADS 1 negative Assessment & Plan (12/09/2023 2:51 PM EDT): Left breast invasive ductal carcinoma diagnosed 05/2021 -She presented on 03/06/2021 with a rash on her left breast that had been present for a month. Biopsy 03/2021 revealed invasive adenocarcinoma, ER/ME positive HER 2 negative. . -MRI done revealed abnormal enhancement at left nipple. and mammogram 09/2020 and 04/2021 did not reveal any breast mass. -She underwent lumpectomy on 05/24/[address] Charanjit Mathews. Scintigraphy did not reveal any sentinel lymph done. Incision and prove of axilla at time of surgery did not detect any lymph done. Final pathology Invasive ductal carcinoma DCIS, nuclear grade 2, margins negative , AJCC stage pT4b NX, Stage IIIB -She has seen Dr. Humphrey of oncology and completed adjutant chemotherapy with Taxotere/Cytoxan started Jul 2021. She is on Nulasta. -Followed by [facility] Radiation Oncology with Dr. Zamudio and currently radiation . she completed chemotherapy. -She is a candidate for adjuvant hormonal therapy with aromatase inhibitor for 5 years -Genetic testing for inherited breat/ovarian cancer syndrome discussed with oncology, she defers at this time. -Mammo 10/15/2021 BIRADS 1 negative. -Saw Oncology on 07/07/23. -seen by Dr. Mathews 11/25/23 -Mammogram 11/17/23 BIRADS 1 negative Assessment & Plan (09/09/2023 12:20 PM EST): Left breast invasive ductal carcinoma diagnosed 05/2021 -She presented on 03/06/2021 with a rash on her left breast that had been present for a month. Biopsy 03/2021 revealed invasive adenocarcinoma, ER/ME positive HER 2 negative. . -MRI done revealed abnormal enhancement at left nipple. and mammogram 09/2020 and 04/2021 did not reveal any breast mass. -She underwent lumpectomy on 05/24/[address] Charanjit Mathews. Scintigraphy did not reveal any sentinel lymph done. Incision and prove of axilla at time of surgery did not detect any lymph done. Final pathology Invasive ductal carcinoma DCIS, nuclear grade 2, margins negative , AJCC stage pT4b NX, Stage IIIB -She has seen Dr. Humphrey of oncology and completed adjutant chemotherapy with Taxotere/Cytoxan started Jul 2021. She is on Nulasta. -Followed by [facility] Radiation Oncology with Dr. Zamudio and currently radiation . she completed chemotherapy. -She is a candidate for adjuvant hormonal therapy with aromatase inhibitor for 5 years -Genetic testing for inherited breat/ovarian cancer syndrome discussed with oncology, she defers at this time. -Mammo 10/15/2021 BIRADS 1 negative. -Saw Oncology on 07/07/23. -Mammogram due 09/2023. Assessment & Plan (09/24/2022 10:15 AM EST): Left breast invasive ductal carcinoma diagnosed 05/2021 -She presented on 03/06/2021 with a rash on her left breast that had been present for a month. Biopsy 03/2021 revealed invasive adenocarcinoma, ER/ME positive HER 2 negative. . -MRI done revealed abnormal enhancement at left nipple. and mammogram 09/2020 and 04/2021 did not reveal any breast mass. -She underwent lumpectomy on 05/24/[address] Charanjit Mathews. Scintigraphy did not reveal any sentinel lymph done. Incision and prove of axilla at time of surgery did not detect any lymph done. Final pathology Invasive ductal carcinoma DCIS, nuclear grade 2, margins negative , AJCC stage pT4b NX, Stage IIIB -She has seen Dr. Humphrey of oncology and completed adjutant chemotherapy with Taxotere/Cytoxan started Jul 2021. She is on Nulasta. -Followed by [facility] Radiation Oncology with Dr. Zamudio and currently radiation . she completed chemotherapy. -She is a candidate for adjuvant hormonal therapy with aromatase inhibitor for 5 years -Genetic testing for inherited breat/ovarian cancer syndrome discussed with oncology, she defers at this time. -Mammo 10/15/2021 BIRADS 1 negative. -She reports mammo is scheduled for 10/17/2022 Low back pain 10/31/2021 Type 2 diabetes mellitus 09/09/2012 Overview (05/25/2024): -Controlled on diet alone -Metformin discontinued 11/2021 due to A1c at goal Diabetes is controlled. Lab Results Component Value Date HGBA1C 7.4 (A) 05/25/2024 HGBA1C 6.5 (H) 12/16/2023 HGBA1C 6.8 (A) 12/09/2023 Lab Results Component Value Date MICROALBUR 12.0 12/16/2023 CREATININE 0.61 12/16/2023 -Changes: none -Sunny/Arb: lisinopril 10mg daily -Statin therapy: atorvastatin 40mg daily -Diabetic eye exam: referral to [facility] placed 03/16/2023 -Diabetic foot exam: 03/16/2023 -Continue lifestyle modifications -Continue medications Assessment & Plan (05/25/2024 3:49 PM EDT): -Controlled on diet alone -Metformin discontinued 11/2021 due to A1c at goal Diabetes is controlled. Lab Results Component Value Date HGBA1C 7.4 (A) 05/25/2024 HGBA1C 6.5 (H) 12/16/2023 HGBA1C 6.8 (A) 12/09/2023 Lab Results Component Value Date MICROALBUR 12.0 12/16/2023 CREATININE 0.61 12/16/2023 -Changes: none -Sunny/Arb: lisinopril 10mg daily -Statin therapy: atorvastatin 40mg daily -Diabetic eye exam: referral to [facility] placed 03/16/2023 -Diabetic foot exam: 03/16/2023 -Continue lifestyle modifications -Continue medications Assessment & Plan (12/09/2023 2:41 PM EDT): -Controlled on diet alone -Metformin discontinued 11/2021 due to A1c at goal Diabetes is controlled. - Lab Results Component Value Date HGBA1C 7.0 (A) 09/09/2023 HGBA1C 6.6 (A) 10/22/2022 HGBA1C 6.6 (A) 09/24/2022 - Lab Results Component Value Date MICROALBUR 0.7 02/01/2021 CREATININE 0.70 09/24/2022 -Changes: none -Sunny/Arb: lisinopril 10mg daily -Statin therapy: atorvastatin 40mg daily -Diabetic eye exam: referral to [facility] placed 03/16/2023 -Diabetic foot exam: 03/16/2023 -Continue lifestyle modifications medications Assessment & Plan (09/09/2023 12:19 PM EST): -Controlled on diet alone -Metformin discontinued 11/2021 due to A1c at goal Diabetes is controlled. - Lab Results Component Value Date HGBA1C 7.0 (A) 09/09/2023 HGBA1C 6.6 (A) 10/22/2022 HGBA1C 6.6 (A) 09/24/2022 - Lab Results Component Value Date MICROALBUR 0.7 02/01/2021 CREATININE 0.70 09/24/2022 -Changes: none -Sunny/Arb: lisinopril 10mg daily -Statin therapy: atorvastatin 40mg daily -Diabetic eye exam: referral to [facility] placed 03/16/2023 -Diabetic foot exam: 03/16/2023 -Continue lifestyle modifications medications Assessment & Plan (03/16/2023 1:29 PM EDT): -Controlled on diet alone -Metformin discontinued 11/2021 due to A1c at goal Diabetes is controlled. - Lab Results Component Value Date HGBA1C 6.6 (A) 10/22/2022 HGBA1C 6.6 (A) 09/24/2022 HGBA1C 6.5 (H) 02/01/2021 Lab Results Component Value Date MICROALBUR 0.7 02/01/2021 CREATININE 0.70 09/24/2022 -Changes: none -Sunny/Arb: lisinopril 10mg daily -Statin therapy: atorvastatin 40mg daily -Diabetic eye exam: referral to [facility] placed 03/16/2023 -Diabetic foot exam: 03/16/2023 -Continue lifestyle modifications medications Assessment & Plan (09/24/2022 10:28 AM EST): -Controlled on diet alone -Metformin discontinued 11/2021 due to A1c at goal Hemoglobin A1C Date Value Ref Range Status 09/24/2022 6.6 (A) 4.0 - 6.0 % Corrected Resolved Problems Problem Noted Date Diagnosed Date Resolved Date Dry skin 05/25/2024 11/01/2024 Vaginal candidiasis 05/25/2024 11/01/19 25 Overview (05/25/2024): -dry, irritated skin in the vulvar area of the vagina. No lumps or lumps. NO plaques. Pt denied any foul odor, bleeding or discharge. -will prescribe cream. Assessment & Plan (05/25/2024 2:21 PM EDT): -dry, irritated skin in the vulvar area of the vagina. No lumps or lumps. NO plaques. Pt denied any foul odor, bleeding or discharge. -will prescribe cream Dysuria 05/05/2024 11/01/2024 Assessment & Plan (05/05/2024 7:00 PM EDT): Chem 11/2023 Renal function was wnl , K 3.5 Urine dipstick today ketone trace, blood mod, protein 100, nitrates neg , LE trace Normal vulvar exam , neg CVA -UA w reflex to cx -bactrim for 3 days ( PNC allergy, and avoid Macrobid for age ,unsure if allergy to cephalosporins) Hypercholesterolemia 05/07/2012 022 Encounters Date Type Department Care Team Description 11/18/2024 Patient Outreach [facility] [address] [place] [phone] Tabitha Gerard MD Pre-visit Planning (SDOH Screening negative and Tobacco screening negative) 11/16/2024 2:40 PM EST Office Visit [facility] [address] [place] [address] Tabitha Gerard MD Rash (Primary Dx); Paroxysmal atrial fibrillation (CMS/HCC); Infiltrating ductal carcinoma of left female breast (CMS/HCC) 11/09/2024 Refill [facility] [address] [place] [phone] Tabitha Gerard MD Pain; Paroxysmal atrial fibrillation (CMS/HCC) 11/03/2024 Refill [facility] [address] [place] [address] Tabitha Gerard MD Acute URI 11/01/2024 Orders Only [facility] [address] [place] [address] Tabitha Gerard MD Benign hypertension (Primary Dx); Dyslipidemia 10/11/2024 Refill [facility] [address] [place] [address] Tabitha Gerard MD Paroxysmal atrial fibrillation ([facility]/HCC) 09/29/2024 Telephone [facility] [address] [place] [address] Chuck Cortez [place] November recall 08/31/2024 Refill [facility] [address] [place] [address] Tabitha Gerard MD Paroxysmal atrial fibrillation ([facility]) from Last 3 Months Immunizations Name Administration Dates Next Due Hep B, adult 05/25/2024,12/09/2023,09/09/2023 Influenza High-dose Quadriva lent Preservative Free 07/10/2022 Influenza injectable quadriv alent IIV4 with preservative 07/14/2019,07/22/2017,08/21/2016,10/25 Influenza injectable quadriv alent preservative free 09/09/2023 Influenza, High Dose Seasona l, Preservative Free 08/05/2018 Influenza, IIV3, injectable 05/29/2014,1 ,06/27/2010,06/01,07/28/2006,08/05/2005,08/06/2004 ,07/08/2002 Influenza, Split (incl. jose fied surface antigen) 08/09/2013,09/09/2012 Moderna Covid-19 Vaccine 12+ 01/15/2022, 01/15/2022,01/24/2021,01/24,12/27/2020,12/27/2020 Moderna Covid-19 Vaccine 6+ Bivalent 03/16/2023, 09/24/2022 Pfizer Covid-19 Vaccine 12+ 09/18/2023 Pneumococcal Conjugate PCV 13 08/22/2016 Pneumococcal Polysaccharide PPSV23 07/22/2017, RSV Bivalent 01/01/2024 TD (adult), 2 Lf tetanus tox oid, preservative free, adsorbed 07/13/2003 Tdap 10/25/2015,08/31/2014 Zoster, Recombinant 04/16/2023,02/13/2023 Zoster, live 08/31/2014 Family History Medical History Relation Name Comments Diabetes Father Hypertension Father Relation Name Status Comments Father Social History Tobacco Use Types Packs/Day Years Used Date Smoking Tobacco: Never Smokeless Tobacco: Never Tobacco Cessation:Counseling Given: Not Answered Depression Answer Date Recorded Patient Health Questionnaire-9 Score 0 12/09/2023 Patient Health Questionnaire-9 Score 0 12/09/2023 Last PHQ-9: Questionnaire Data Not on file 0 12/09/2023 Housing Stability Answer Date Recorded What is your housing situation today? I have gide[place] miles 12/09/[address] you [...] Orientation Straight 07/21/2022 10 :14 AM EDT Last Filed Vital Signs Vital Sign Reading Time Taken Comments Blood Pressure 138/78 11/16/2024 2:43 PM EST Pulse 72 11/16/2024 2:43 PM EST Temperature 36.7 ??C (98 ??F) 11/16/2024 2:43 PM EST Respiratory Rate 16 11/16/2024 2:43 PM EST Oxygen Saturation 98% 11/16/2024 2:43 PM EST Inhaled Oxygen Concentration - - Weight 70.3 kg (155 lb) 11/16/2024 2:43 PM EST Height 162.6 cm (5' 4 ) 10/22/2023 2:53 PM EST Body Mass Index 26.61 10/22/2023 2:53 PM EST Plan of Treatment Upcoming Encounters Date Type Department Care Team (Late st Contact Info) Description 11/30/2024 2:00 PM EDT Office Visit [facility] [address] [place] [address] Tabitha Gerard MD [address] [place], [place] [phone] Health Maintenance Due Date Last Done Comments CT Colonography 1950 FIT DNA/Cologuard 1950 FIT 1950 FOBT 1950 Sigmoidoscopy 1950 Alcohol/Substance Use Screening 1963 COVID-19 Vaccine ( season) 2024 09/18/2023, 03/16/2023, 09/24/2022, Additional history exists Influenza Vaccine (#1) 2024 , 07/10/2022, 07/14/2019, Additional history exists Diabetes: Hemoglobin A1C 08/24/2024 024, 12/16/2023, 12/09/2023, Additional history exists Diabetes: Foot Exam 09/09/2024 09/09/2023, 09/09/2023, 09/09/2023, Additional history exists Mammogram 11/17/2024 11/17/2023, 09/22, 10/17/2022, Additional history exists Depression Screening 12/08/2024 12/09/2023, 12/09/19 24 Diabetes: Urine Protein Screening 12/15/2024 12/16/2023, 02/01/2021, 10/17/2019 Lipid Panel 12/15/2024 12/16/2023, 12/2022, 08/23/2021, Additional history exists Tobacco Screening 09/02/2025 09/02/2024 DTaP/Tdap/Td Vaccines (3 - Td or Tdap) 10/25/2025 10/25/2015, 08/31/2014, 07/13/2003 SDOH Screening 11/18/2025 11/18/2024 Eye Exam 08/26/2026 08/26/2024, 02/2024, 08/26/2024, Additional history exists Colonoscopy 08/11/2033 08/11/2023 Colorectal Cancer Screening 08/11/2033 Pneumococcal Vaccine: 50+ Years Completed 07/22/2017, 08/22/2016, 07/08/2002 Hepatitis C Screening Completed 09/24/2022, 023 Zoster Vaccines Completed 04/16/2023, 01/20, 08/31/2014 RSV Patients and Patients Aged 60 years or older Completed 01/01/2024 Hepatitis B Vaccines Completed 05/25/2024, [...] patient's age to complete this topic Meningococcal Vaccine Aged Out No hadley perla eligible based on patient's age to complete this topic RSV under 20 months Aged Out No longe r eligible based on patient's age to complete this topic Rotavirus Vaccines Aged Out No longer eligible based on patient's age to complete this topic Procedures Procedure Name Priority Date/Time Associated Diagnosis Comments POCT GLYCOSYLATED HEMOGLOBIN (HGB A1C) Routine 05/25/2024 3:01 PM EDT Type 2 diabetes mellitus with hyperosmolarity without coma, without long-term current use of insulin ([facility]) ALBUMIN, RANDOM URINE W/CREATININE Routine 12/16/2023 12:03 PM EDT Type 2 diabetes mellitus with hyperosmolarity without coma, without long-term current use of insulin ([facility]/HCC) LIPID PANEL, STANDARD Routine 12/16/2023 12:03 PM EDT Type 2 diabetes mellitus with hyperosmolarity without coma, without long-term current use of insulin ([facility]) BI MAMMOGRAM DIAGNOSTIC TOMOSYNTHESIS BILATERAL Routine 11/17/2023 3:14 PM EST HM COLONOSCOPY Routine 08/11/2023 HEPATITIS C VIRAL RNA, QUANTITATIVE, REAL-TIME PCR Routine 09/24/2022 10:23 AM EST Benign hypertension from Last 3 Months or Most Recently Relevant to Health Maintenance Results * (ABNORMAL) POCT glycosylated hemoglobin (Hgb A1c) (05/25/2024 3:01 PM EDT) Hemoglobin A1C 7.4(A) 4.0 - 6.0 % QC Media Lot # [id number] Lot# Expiration Date , Blood Capillary blood specimen / Unknown 05/25/2024 3:01 PM EDT Tabitha Gerard MD POINT OF CARE TEST ENTER/E DIT ORDERABLES Final Result * Albumin, Random Urine W/Creatinine (12/16/2023 12:03 PM EDT) Creatinine, Urine 78.31 mg/dL [facility] Microalbumin Urine 12.0 mg/L [facility] Microalbum Creatinine Ratio Ur 15.3 <30 ug/mg cr [facility] Comment:Albumin/Creatinine R atio Reference Ranges: Normal: < 30 ug/mg creatinine Microalbuminuria: 30 - 300 ug/mg creatinineClinical Albuminuria: > 300 ug/mg creatinine Urine 12/16/2023 12:0 3 PM EDT 12/16/2023 1:11 PM EDT Tabitha Gerard MD LAB URINE ORDERABLES Final Result Performing Organization Address [facility]/ZIP Co de Phone Number [facility] [address] [place] [phone] [phone] * Lipid Panel, Standard (12/16/2023 12:03 PM EDT) Triglycerides 146 <150 mg/dL [facility] Comment:Desirable Triglyceri de: less than 150 mg/dLBorderline High Triglyceride 150-199 mg/dLHigh Triglyceride: 200-499 mg/dLVery High Triglyceride: greater than or equal to 5OO mg/dL Cholesterol 180 <200 mg/dL [facility] Comment:Desirable Cholestero l: less than 200 mg/dLBorderline High Cholesterol: 200-239 mg/dLHigh Cholesterol: greater than 239 mg/dL LDL Cholesterol Calculated 95 <100 mg/dL [facility] Comment:Desirable LDL: less than 100 mg/dLNear Optimal/Above Optimal LDL: 110- 129 mg/dLBorderline High LDL: 130-159 mg/dLHigh LDL: 160-189 mg/dLVery High LDL: greater than or equal to 190 mg/dL HDL Cholesterol 56 >40 mg/dL [facility] Comment:Desirable HDL: great er than 40 mg/dL Note: This HDL assay may give artificially low results in patients with liver disease. Blood Venous blood specimen / Unknown 12/16/2023 12:03 PM EDT 12/16/2023 1:24 PM EDT Tabitha Gerard MD LAB BLOOD ORDERABLES Final Result Performing Organization Address City/[facility]/ZIP Co de Phone Number [facility] [address] [place] [address] [phone] * BI Mammogram Diagnostic Tomosynthesis Bilateral (11/17/2023 3:14 PM EST) Anatomical Region Laterality Modality Breast Bilateral Mammography 11/17/2023 3:14 PM EST Narrative 11/17/2023 3:59 PM EST ? [facility] ? [address] ?[place] [address] ? Mammography Report ? Signed ? Patient: Gonzales,Lacey ?MR#: [id number] ? : 1950 ?Acct:[id number] ? Age/Sex: 73 / F ?ADM Date: 11/17/23 ? Loc: HO.MAMMO ? Attending Dr: Tabitha Gerard MD ? Ordering Physician: Tabitha Gerard MD ?Results: 2B ?? enign Findings ? Date of Service: 11/17/23 ?Follow Up: 1 Year From Orig ?? inal Mammogram ? Procedure(s): MM tomosynthesis diagnostic BI ?? Accession Number(s): [id number] ? cc: Tabitha Gerard MD ? EXAMINATION: ?? MM DIAGNOSTIC DIGITAL BREAST TOMOSYNTHESIS, BILATERAL ? CLINICAL INFORMATION: ? Due for yearly. History of left lumpectomy, radiation, and chemotherapy ?? for anterior left breast cancer in 2020 with nipple areolar complex ?? involvement. This will be the third and final post lumpectomy protocol ?? follow-up. ? COMPARISON: ?? Mammography: 10/17/2022, 10/15/2021, 04/29/2021, 10/15/2020, ?? 10/05/2020, 02/22/2019. ? TECHNIQUE: ?? Digital breast tomosynthesis is performed in both the craniocaudal and ?? mediolateral oblique views along with computer-aided detection (CAD). ?? Synthesized 2D images are generated from the tomosynthesis. In addition ?? to standard views, 2-D spot magnification views of the left breast ?? lumpectomy site in the CC and ML projections were also performed. ? FINDINGS: ?? There are scattered areas of fibroglandular density (ACR BI-RADS breast ?? composition Category b). ? There are evolving post therapy changes in the left breast with ?? slightly reduced breast size, mild trabecular prominence, and mild skin ?? thickening. Left nipple is not seen. There is mild scarring along the ?? periareolar region. There is also mild scarring in the left axilla from ?? axillary node dissection. No new suspicious abnormality is present in ?? the left breast. ? There are no masses, regions of architectural distortion, or suspicious ?? calcifications in the right breast. The parenchymal pattern is stable ?? from prior exams. ? MM/MM tomosynthesis diagnostic BI ?? IMPRESSION: ?? There are no mammographic changes suspicious for malignancy. ? Similar evolving post therapy changes of the left breast, benign. No ?? clear mammographic evidence of disease recurrence. This concludes 3 ?? year left breast post op surveillance. Patient should resume routine ?? annual bilateral screening mammography. ? No suspicious findings right breast. ? ASSESSMENT: ? BI-RADS BI-RADS 2 - Benign Findings ? RECOMMENDATION: ?? 1 year F/U ? Results were provided to the patient at time of visit by the ?? technologist. ? This patient's information was entered into a reminder system with a ?? target due date for their next mammogram. ? Dictated By: ?Austin Chisholm MD ? Signed By: ?<Electronically signed by Austin Chisholm MD in OV> ?11/17/231555 ? DD/ 13 ? TD/TT: ? Horizontal Boring Mill Set Up Operator: ? Procedure Note Keysha, Image - 11/17/2023 [facility] [address] [place] [address] Dr. Yang, [place] [address] Mammography Report Signed Patient: Prosper Gonzales#: [id number] : 1950cct:[id number] Age/Sex: 73 / FADM Date: 11/17/23 Loc: HO.MAMMO Attending Dr: Tabitha Gerard MD Ordering Physician: Tabitha Gerard MDResults: 2B enign Findings Date of Service: 11/17/23Follow Up: 1 Year From Orig ina Mammogram Procedure(s): MM tomosynthesis diagnostic BI Accession Number(s): [id number] cc: Tabitha Gerard MD EXAMINATION: MM DIAGNOSTIC DIGITAL BREAST TOMOSYNTHESIS, BILATERAL CLINICAL INFORMATION: Due for yearly. History of left lumpectomy, radiation, and chemotherapy for anterior left breast cancer in 2020 with nipple areolar complex involvement. This will be the third and final post lumpectomy protocol follow-up. COMPARISON: Mammography: 10/17/2022, 10/15/2021, 04/29/2021, 10/15/2020, 10/05/2020, 02/22/2019. TECHNIQUE: Digital breast tomosynthesis is performed in both the craniocaudal and mediolateral oblique views along with computer-aided detection (CAD). Synthesized 2D images are generated from the tomosynthesis. In addition to standard views, 2-D spot magnification views of the left breast lumpectomy site in the CC and ML projections were also performed. FINDINGS: There are scattered areas of fibroglandular density (ACR BI-RADS breast composition Category b). There are evolving post therapy changes in the left breast with slightly reduced breast size, mild trabecular prominence, and mild skin thickening. Left nipple is not seen. There is mild scarring along the periareolar region. There is also mild scarring in the left axilla from axillary node dissection. No new suspicious abnormality is present in the left breast. There are no masses, regions of architectural distortion, or suspicious calcifications in the right breast. The parenchymal pattern is stable from prior exams. MM/MM tomosynthesis diagnostic BI IMPRESSION: There are no mammographic changes suspicious for malignancy. Similar evolving post therapy changes of the left breast, benign. No clear mammographic evidence of disease recurrence. This concludes 3 year left breast post op surveillance. Patient should resume routine annual bilateral screening mammography. No suspicious findings right breast. ASSESSMENT: BI-RADS BI-RADS 2 - Benign Findings RECOMMENDATION: 1 year F/U Results were provided to the patient at time of visit by the technologist. This patient's information was entered into a reminder system with a target due date for their next mammogram. Dictated By: Austin Chisholm MD Signed By: <Electronically signed by Austin Chisholm MD in OV> 11/17/23 1556 DD/ 1514 TD/TT: Horizontal Boring Mill Set Up Operator: Tabitha Gerard MD IMG BI PROCEDURES Final Re sult * Hm Colonoscopy (08/11/2023) Colonoscopy Normal Normal Comment:hyperplastic polyp w ith Dr. Clarke Historical Provider HEALTH MAINTENANCE Final Result * Hepatitis C Viral RNA, Quantitative, Real-Time PC (09/24/2022 10:23 AM EST) Pathologist [facility] HCV RNA, QN Real Time PCR <15 NOT DETECTED NOT DETECTED IU/mL [facility] HCV RNA QN Real Time PCR <1.18 NOT DETECTED NOT DETECTED Log IU/mL [facility] Comment: This test was performed using Real-Time Polymerase Chain Reaction. Reportable Range: 15 IU/mL to 100,000,000 IU/mL (1.18 Log IU/mL to 8.00 Log IU/mL). ?? The analytical performance characteristics of this assay have been determined by [facility]. The modifications have not been cleared or approved by the FDA. This assay has been validated pursuant to the CLIA regulations and is used for clinical purposes. ?? For more information on this test, go to: http://education.JollyDeck/faq/ZKF38p9 (This link is being provided for informational/ educational purposes only.) 09/24/2022 10:2 3 AM EST 09/24/2022 10:23 AM EST Narrative [facility] - 09/26/2022 2:30 PM EST FASTING:YES FASTING: YES us Tabitha Gerard MD LAB BLOOD ORDERABLES Final Result [facility] [address] [place] [address] [facility] [address], ([address]) [place] [address] from Last 3 Months or Most Recently Relevant to Health Maintenance Insurance [facility] Advance Directives Documents on File Type Date Recorded Patient Cardiopulmonary Technologist Expl anation Advance Directives and Livin g Will 12/09/2023 Health Care Proxy Care Teams Supervisor Green End Department Relationship Specialty Start Date End Date Tabitha Gerard MD [address] [place] [address] PCP - General Family Medicine 09/21/18 Ismael Stout MD [address] [place] [address] Cardiology 09/07/24 Milagro Humphrey MD [address] [place] [address] Hematology and Oncology 09/09/24 [facility] 09/27/24
--- OUTSIDE RECORDS SUMMARY | 2024-11-25 15:14 | XMS_ITS | Encounter Summary ---
Author Organization [employer] [facility] Address [address] [place] [address] Care Team Providers Care Residential Youth Counselor Name Role Phone Tabitha Gerard MD Primary Care Provider [phone] Ismael Stout MD Unavailable [phone] Milagro Humphrey MD Unavailable [phone] Reason for Visit * Reason Comments Med Refill Encounter Details Date Type Department Care Team ([facility] st Contact Info) Description 11/26/2023 Refill [facility] [address] [place] [address] Tabitha Gerard MD [address] [place] [address] Social History Tobacco Use Types Packs/Day Years [...] Description 11/30/2024 2:00 PM EDT Office Visit [facility] [address] [place] [address] Tabitha Gerard MD [address] [place] [phone] documented as of this encounter Visit Diagnoses Not on filedocumented in this encounter Care Teams Residential Youth Counselor Relationship Specialty Start Date End Date Tabitha Gerard MD [address] [place] [phone] PCP - General Family Medicine 09/21/18 Ismael Stout MD [address] [place] [address] Cardiology 09/07/24 Milagro Humphrey MD [address] [place] [address] Hematology and Oncology 09/09/[address] [facility] 09/27/24 documented as of this encounter
--- OUTSIDE RECORDS SUMMARY | 2024-11-25 15:14 | XMS_ITS | Encounter Summary ---
Author Organization [employer] [facility] Address [address] [address] [place] [address] Care Team Providers Care Deep Tissue Massage Therapist Name Role Phone Tabitha Gerard MD Primary Care Provider [phone] Ismael Stout MD Unavailable [phone] Milagro Humphrey MD Unavailable [phone] Reason for Visit * Reason Comments Med Refill Encounter Details Date Type Department Care Team ([facility] st Contact Info) Description 07/19/2023 Refill [facility] [address] [place] [address] Tabitha Gerard MD [address] [place] [address] Social History Tobacco Use Types Packs/Day Years [...] Visit [facility] [address] [place] [address] Tabitha Gerard MD [address] [place] [address] documented as of this encounter Visit Diagnoses Not on filedocumented in this encounter Care Teams Deep Tissue Massage Therapist Relationship Specialty Start Date End Date Tabitha Gerard MD [address] [place] [address] PCP - General Family Medicine 09/21/18 Ismael Stout MD [address] [place] [address] Cardiology 09/07/24 Milagro Humphrey MD [address] [place] [address] Hematology and Oncology 09/09/24 [place] [facility] 09/27/24 documented as of this encounter
--- OUTSIDE RECORDS SUMMARY | 2024-11-25 15:14 | XMS_ITS | Encounter Summary ---
Author Organization [facility] [facility] Address [address] [place] [address] Care Team Providers Care Automotive Service Professional Name Role Phone Tabitha Gerard MD Primary Care Provider [phone] Ismael Stout MD Unavailable [phone] Milagro Humphrey MD Unavailable [phone] Reason for Visit * Reason Comments Med Change Request Encounter Details Date Type Department Care Team ([facility] st Contact Info) Description 07/10/2024 Refill [facility] [address] [place] [address] Tabitha Gerard MD [address] [place] [address] Acute URI Social History Tobacco Use Types [...] 2:00 PM EDT Office Visit [facility] [address] [place] [address] Tabitha Gerard MD [address] [place] [address] documented as of this encounter Visit Diagnoses Diagnosis Acute URI Acute upper respiratory infections of unspecified site documented in this encounter Additional Health Concerns Assessment Noted Time PHQ-9 Depression Total Score: 0 12/09/19 2:18 PM EDT documented as of this encounter Care Teams Automotive Service Professional Relationship Specialty Start Date End Date Tabitha Gerard MD [address] [place] [address] PCP - General Family Medicine 09/21/18 Ismael Stout MD [address] [place] [address] Cardiology 09/07/24 Milagro Humphrey MD [address] [place] [address] Hematology and Oncology 09/09/24 [place] [facility] 09/27/24 documented as of this encounter
--- OUTSIDE RECORDS SUMMARY | 2024-11-25 15:14 | XMS_ITS | Encounter Summary ---
Author Organization [employer] Address [address] [facility] 7t [place] [address] Care Team Providers Care Supervisor Gelatin Plant Name Role Phone Tabitha Gerard MD Primary Care Provider [phone] Ismael Stout MD Unavailable [phone] Milagro Humphrey MD Unavailable [phone] Encounter Details Date Type Department Care Team (Late st Contact Info) Description 11/16/2024 2:40 PM EST Office Visit [facility] [address] [place], [place] [id number] Tabitha Gerard MD [address] [place], [place] [phone] Rash (Primary Dx); Paroxysmal atrial fibrillation (CMS/HCC); Infiltrating ductal carcinoma of left female breast (CMS/HCC) Social History Tobacco Use Types Packs/Day [...] AM EDT documented as of this encounter Last Filed Vital Signs Vital Sign Reading Time Taken Comments Blood Pressure 138/78 11/16/2024 2:43 PM EST Pulse 72 11/16/2024 2:43 PM EST Temperature 36.7 ??C (98 ??F) 11/16/2024 2:43 PM EST Respiratory Rate 16 11/16/2024 2:43 PM EST Oxygen Saturation 98% 11/16/2024 2:43 PM EST Inhaled Oxygen Concentration - - Weight 70.3 kg (155 lb) 11/16/2024 2:43 PM EST Height - - Body Mass Index 26.61 10/22/2023 2:53 PM EST documented in this encounter Progress Notes * Antoinette Gama - 11/16/2024 2:40 PM EST Subjective Patient ID: Lacey Gonzales is a 74 y.o. female with past medical history of type 2 diabetes, hypertension, A-fib and history of breast cancer who presents to walk in clinic for No chief complaint on file.. Pt reports was in [place] for 1 week and had bites on legs. Since then she has had two itchy lesions on inner left leg. Denies fevers. She requests letter for first floor apartment due to difficulty walking for choric arthritis. I asked her to rwquest this via medical records. Review of Systems Objective Visit Vitals BP 138/78 (BP Location: Left arm, Patient Position: Sitting, BP Cuff Size: Adult) Pulse 72 Temp 98 ??F (36.7 ??C) (Temporal) Resp 16 Body mass index is 26.61 kg/m??. Physical Exam Skin: Comments: Left lower leg with 3cm round erythematous scaly lesion x 2 Problem List Items Addressed This Visit Rash - Primary -consistent with allergic reaction -trial of clobetasol oint 11/16/24 Relevant Medications clobetasol (Temovate) 0.05 % ointment Atrial fibrillation (CMS/HCC) Diagnosed 08/23/2021 on exam. Asymptomatic. Rate controlled. -continue Coreg 3.125 bid started 08/23/2021 due to elevated blood pressure -Eliquis (apixaban) 5mg bid started 08/23/2021 (no risk factors for 5mg dose) -Anticoaglaton precautions discussed. -Her atrial fibrillation 30 day loop was removed 03/10/22. -Pt seen Dr Stout 04/02/2022 no signs of Afib on loop monitor 22% PACs -Saw cardio 09/06/[address] Stout Infiltrating ductal carcinoma of left female breast (CMS/HCC) Left breast invasive ductal carcinoma diagnosed 05/2021 -She presented on 03/06/2021 with a rash on her left breast that had been present for a month. Biopsy 03/2021 revealed invasive adenocarcinoma, ER/SC positive HER 2 negative. . -MRI done revealed abnormal enhancement at left nipple. and mammogram 09/2020 and 04/2021 didnot reveal any breast mass. -She underwent lumpectomy [...] -Completed adjuvant radiation therapy with Dr. Zamudio [facility] between October to November 2021. -Genetic testing for inherited breat/ovarian cancer syndrome discussed with oncology declined -She is a candidate for adjuvant hormonal therapy with aromatase inhibitor for 5 years. She startedaromatase inhibitor, letrozole 2.5 mg once daily from 12/13/2021. Five years will be 12/13/2026. -Seen by Dr. Mathews 11/25/23 -Saw Oncology on -Mammogram 11/17/23 BIRADS 1 negative Relevant Medications letrozole (Femara) 2.5 MG chemo tablet I, Antoinette Gama, am serving as a scribe to document services personally performed by Dr. Myers, based on the patient's response to questions by provider and providers statements to me. documented in this encounter Miscellaneous Notes * Assessment & Plan Note - Tabitha Gerard MD - 11/16/2024 2:56 PM EST Associated Problem(s): Rash -consistent with allergic reaction -trial of clobetasol oint 11/16/24 * Assessment & Plan Note - Tabitha Gerard MD - 11/16/2024 2:55 PM EST Associated Problem(s): Infiltrating ductal carcinoma of left female breast (CMS/HCC) Left breast invasive ductal carcinoma diagnosed 05/2021 -She presented on 03/06/2021 with a rash on her left breast that had been present for a month. Biopsy 03/2021 revealed invasive adenocarcinoma, ER/SC positive HER 2 negative. . -MRI done revealed abnormal enhancement at left nipple. and mammogram 09/2020 and 04/2021 didnot reveal any breast mass. -She underwent lumpectomy [...] -Completed adjuvant radiation therapy with Dr. Zamudio [facility] between October to November 2021. -Genetic testing for inherited breat/ovarian cancer syndrome discussed with oncology declined -She is a candidate for adjuvant hormonal therapy with aromatase inhibitor for 5 years. She startedaromatase inhibitor, letrozole 2.5 mg once daily from 12/13/2021. Five years will be 12/13/2026. -Seen by Dr. Mathews 11/25/23 -Saw Oncology on -Mammogram 11/17/23 BIRADS 1 negative * Assessment & Plan Note - Tabitha Gerard MD - 11/16/2024 2:55 PM EST Associated Problem(s): Atrial fibrillation (CMS/HCC) Diagnosed 08/23/2021 on exam. Asymptomatic. Rate controlled. -continue Coreg 3.125 bid started 08/23/2021 due to elevated blood pressure -Eliquis (apixaban) 5mg bid started 08/23/2021 (no risk factors for 5mg dose) -Anticoaglaton precautions discussed. -Her atrial fibrillation 30 day loop was removed 03/10/22. -Pt seen Dr Stout 04/02/2022 no signs of Afib on loop monitor 22% PACs -Saw cardio 09/06/[address] Stout documented in this encounter Plan of Treatment Upcoming Encounters Date Type Department Care Team (Late st Contact Info) Description 11/30/2024 2:00 PM EDT Office Visit [facility] [address] [place] [address] Tabitha Gerard MD [address] [place] [address] documented as of this encounter Visit Diagnoses Diagnosis Rash- Primary Rash and other nonspecific skin eruption Paroxysmal atrial fibrillation (CMS/HCC) Atrial fibrillation Infiltrating ductal carcinoma of left female breast (CMS/HCC) documented in this encounter Additional Health Concerns Assessment Noted Time PHQ-9 Depression Total Score: 0 12/09/19 2:18 PM EDT documented as of this encounter Care Teams Supervisor Gelatin Plant Relationship Specialty Start Date End Date Tabitha Gerard MD [address] [place] [address] PCP - General Family Medicine 09/21/18 Ismael Stout MD [address] [place] [address] Cardiology 09/07/24 Milagro Humphrey MD [address] [place] [address] Hematology and Oncology 09/09/24 [place] [facility] 09/27/24 documented as of this encounter
--- OUTSIDE RECORDS SUMMARY | 2024-11-25 15:14 | XMS_ITS | Encounter Summary ---
Author Organization [employer] Address [address] [facility] 7t [place] [address] Care Team Providers Care Weight Trainer Name Role Phone Tabitha Gerard MD Primary Care Provider [phone] Ismael Stout MD Unavailable [phone] Milagro Humphrey MD Unavailable [phone] Reason for Visit * Reason Onset Date Comments Results 07/15/2023 Encounter Details Date Type Department Care Team ([facility] Contact Info) Description 07/15/2023 Telephone [facility] [address] [place] [address] Tabitha Gerard MD [address] [place], [place] [phone] Results Social History Tobacco Use Types Packs/Day Years [...] Description 11/30/2024 2:00 PM EDT Office Visit [facility] [address] [place] [address] Tabitha Gerard MD [address] [place] [address] documented as of this encounter Visit Diagnoses Not on filedocumented in this encounter Care Teams Weight Trainer Relationship Specialty Start Date End Date Tabitha Gerard MD [address] [place] [address] PCP - General Family Medicine 09/21/18 Ismael Stout MD [address] [place] [address] Cardiology 09/07/24 Milagro Humphrey MD [address] [place] [address] Hematology and Oncology 09/09/24 [place] [facility] 09/27/24 documented as of this encounter
== END 2024-11-25 13:38 | disposition home or self-care (01) ==
LOC: HO.MAMMO 13:37
PROVIDERS: PCP Family Medicine; Visit Provider Family Medicine
DX: Z12.31 Encounter for screening mammogram for malignant neoplasm of breast (principal)
CPT/HCPCS: 77063; 77067

== ENCOUNTER → 2024-11-25 14:00 | Outpatient (BNV) | payer OTHER, SELFPAY | PROVIDERS: PCP Family Medicine; Visit Provider Internal Medicine | DX: Z12.31 Encounter for screening mammogram for malignant neoplasm of breast (principal) | CPT/HCPCS: 77063; 77067 ==

== ENCOUNTER 2024-11-30 14:40 | Outpatient (REF) | payer OTHER, SELFPAY ==
[2024-11-30 16:25] LABS: Appearance Urine Turbid; Color Urine Yellow; Glucose Urine UA 100 mg/dL (Negative); Leukocyte Esterase Urine Small (1+) (Negative); Nitrite Urine Negative (Negative); Specific Gravity - Urine 1.025 (1.005-1.025); UMIC TRIGGER UACC YES; Urine Blood Negative (Negative); Urine Ketones Trace mg/dL (Negative); Urine Protein Negative (Neg-Trace)
[2024-11-30 16:38] LABS: Bacteria Urine None Seen (None Seen); Hyaline Casts Urine 0-2 /LPF (0-2); RBC Urine 0-2 /HPF (0-2); Squamous Epithelial Cell Urine 0-2 /HPF (0-2); UACC Culture Trigger YES; WBC Urine 0-5 /HPF (0-5)
--- OUTSIDE RECORDS SUMMARY | 2024-11-30 17:16 | XMS_ITS | Encounter Summary ---
Author Organization [employer] Address [address] [facility] 7t [place] [address] Care Team Providers Care Strap Making Machine Operator Name Role Phone Tabitha Gerard MD Primary Care Provider [phone] Ismael Stout MD Unavailable [phone] Milagro Humphrey MD Unavailable [phone] Reason for Visit * Reason Onset Date Comments chartprep 11/29/2024 Encounter Details Date Type Department Care Team (Late st Contact Info) Description 11/29/2024 Telephone [facility] [address] [place] [address] Tabitha Gerard MD [address] [place], [place] [phone] chartprep Social History Tobacco Use Types Packs/Day Years Used Date Smoking Tobacco: Never Smokeless Tobacco: Never Depression Answer Date Recorded Patient Health Questionnaire-9 Score 0 11/30/2024 Patient Health Questionnaire-9 Score 0 11/30/2024 Last PHQ-9: Questionnaire Data Not on file 0 11/30/2024 Housing Stability Answer Date Recorded What is [...] Date Recorded Patient Health Questionnaire-2 Score 0 11/30/2024 Internet Access Answer Date Recorded Internet Access [...] encounter Miscellaneous Notes * Telephone Encounter - Aneta Castillo [place] - 11/29/2024 2:03 PM EDT ..Chart Prep Labs: not applicable Images: not applicable Vaccines due: Covid Due and Flu Due Referrals: Not Applicable Screenings: Mammogram and Eye Exam Overdue care gaps: A1C, Glucose, Sbirt, SDOH, PHQ-9, and Oral Health documented in this encounter Plan of Treatment Not on file documented as of this encounter Visit Diagnoses Not on filedocumented in this encounter Additional Health Concerns Assessment Noted Time PHQ-9 Depression Total Score: 0 12/09/19 24 2:18 PM EDT documented as of this encounter Care Teams Strap Making Machine Operator Relationship Specialty Start Date End Date Tabitha Gerard MD [address] [place] [address] PCP - General Family Medicine 09/21/18 Ismael Stout MD [address] [place] [address] Cardiology 09/07/24 Milagro Humphrey MD [address] [place] [address] Hematology and Oncology 09/09/24 [facility] 09/27/24 documented as of this encounter
--- OUTSIDE RECORDS SUMMARY | 2024-11-30 17:16 | XMS_ITS | Encounter Summary ---
Author Organization [employer] Address [address] [facility] 7t [place] [address] Care Team Providers Care Fire Operations Forester Name Role Phone Tabitha Gerrad MD Primary Care Provider [phone]- [phone] Ismael Stout MD Unavailable [phone] Milagro Humphrey MD Unavailable [phone] Reason for Visit * Reason Onset Date Comments Hospital Follow-up 10/08/2023 Encounter Details Date Type Department Care Team (Late st Contact Info) Description 10/08/2023 Telephone [facility] [address] [place], [place] [phone] Tabitha Gerard MD [address] [place], [place] [phone] Hospital Follow-up Social History Tobacco Use Types [...] for , 10/22/23, @2:45pm with Dr. Hao Santaan. Patient confirms that emergency gallbladder surgery performed at [facility] in [place]. No notes in chart. TC placed to [facility] at [phone] to request records. Medical records office closed for the day. Message reports that request for records must befaxed to [phone]. Routing back to green team nurses to fax request for records as this technical publications writer has no access to fax. Tc from pt requesting a HDF appt. Hospital: [facility] Date of admission: 09/27/2023 Discharge date: 09/30/2023 Diagnosed: Gallbladder Surgery * Telephone Encounter - Kori Johnson - 10/08/2023 4:13 PM EST Tc from pt requesting a HDF appt. Hospital: [facility] Date of admission: 09/27/2023 Discharge date: 09/30/2023 Diagnosed: Gallbladder Surgery documented in this encounter Plan of Treatment Not on file documented as of this encounter Visit Diagnoses Not on filedocumented in this encounter Care Teams Fire Operations Forester Relationship Specialty Start Date End Date Tabitha Gerard MD [address] [place] [address] PCP - General Family Medicine 09/21/18 Ismael Stout MD [address] [place] [address] Cardiology 09/07/24 Milagro Humphrey MD [address] [place] [address] Hematology and Oncology 09/09/24 [place] [facility] 09/27/24 documented as of this encounter
--- OUTSIDE RECORDS SUMMARY | 2024-11-30 17:16 | XMS_ITS | Encounter Summary ---
Author Organization [employer] Address [address] [facility] 7t [place] [address] Care Team Providers Care In Store Demonstrator Name Role Phone Tabitha Gerard MD Primary Care Provider [phone] Ismael Stout MD Unavailable [phone] Milagro Humphrey MD Unavailable [phone] Reason for Visit * Reason Comments Med Change Request Encounter Details Date Type Department Care Team ([facility] st Contact Info) Description 02/13/2024 Refill [facility] [address] [place] [address] Tabitha Gerard MD [address] [place], [place] [phone] Acute URI Social History Tobacco Use Types [...] documented as of this encounter Care Teams In Store Demonstrator Relationship Specialty Start Date End Date Tabitha Gerard MD [address] [place] [address] PCP - General Family Medicine 09/21/18 Ismael Stout MD [address] [place] [address] Cardiology 09/07/24 Milagro Humphrey MD [address] [place] [address] Hematology and Oncology 09/09/[address] [place] [facility] [place] [facility] 09/27/24 documented as of this encounter
--- OUTSIDE RECORDS SUMMARY | 2024-11-30 17:16 | XMS_ITS | Encounter Summary ---
Author Organization [employer] Address [address] [facility] 7t [place] [address] Care Team Providers Care Steam Table Associate Name Role Phone Tabitha Gerard MD Primary Care Provider [phone] Ismael Stout MD Unavailable [phone] Milagro Humphrey MD Unavailable [phone] Reason for Visit * Reason Onset Date Comments Results 07/15/2023 Encounter Details Date Type Department Care Team ([facility] Contact Info) Description 07/15/2023 Telephone [facility] [address] [place] [address] Tabitha Gerard MD [address] [place], [place] [phone] Results Social History Tobacco Use Types Packs/Day [...] as of this encounter Plan of Treatment Not on file documented as of this encounter Visit Diagnoses Not on filedocumented in this encounter Care Teams Steam Table Associate Relationship Specialty Start Date End Date Tabitha Gerard MD [address] [place] [address] PCP - General Family Medicine 09/21/18 Ismael Stout MD [address] [place] [address] Cardiology 09/07/24 Milagro Humphrey MD [address] [place] [address] Hematology and Oncology 09/09/24 [facility] 09/27/24 documented as of this encounter
--- OUTSIDE RECORDS SUMMARY | 2024-11-30 17:16 | XMS_ITS | Encounter Summary ---
Author Organization [employer] Address [address] [facility] 7t [place] [address] Care Team Providers Care Practical Ministries Professor Name Role Phone Tabitha Gerard MD Primary Care Provider [phone] Ismael Stout MD Unavailable [phone] Milagro Humphrey MD Unavailable [phone] Reason for Visit * Reason Comments Med Refill Encounter Details Date Type Department Care Team ([facility] st Contact Info) Description 11/14/2023 Refill [facility] [address] [place] [address] Tabitha Gerard MD [address] [place], [place] [phone] Dyslipidemia Social History Tobacco Use Types Packs/Day [...] hyperlipidemia documented in this encounter Care Teams Practical Ministries Professor Relationship Specialty Start Date End Date Tabitha Gerard MD [address] [place] [address] PCP - General Family Medicine 09/21/18 Ismael Stout MD [address] [place] [address] Cardiology 09/07/24 Milagro Humphrey MD [address] [place] [address] Hematology and Oncology 09/09/24 [facility] 09/27/24 documented as of this encounter
--- OUTSIDE RECORDS SUMMARY | 2024-11-30 17:16 | XMS_ITS | Encounter Summary ---
Author Organization [employer] Address [address] [facility] 7t [place] [address] Care Team Providers Care Physician Intensivist Name Role Phone Tabitha Gerard MD Primary Care Provider [phone] Ismael Stout MD Unavailable [phone] Milagro Humphrey MD Unavailable Reason for Visit * Reason Comments Med Refill Encounter Details Date Type Department Care Team ([facility] st Contact Info) Description 07/19/2023 Refill [facility] [address] [place] [address] Tabitha Gerard MD [address] [place] [address] Social History Tobacco Use Types Packs/Day Years [...] on filedocumented in this encounter Care Teams Physician Intensivist Relationship Specialty Start Date End Date Tabitha Gerard MD [address] [place] [address] PCP - General Family Medicine 09/21/18 Ismael Stout MD [address] [place] [address] Cardiology 09/07/24 Milagro Humphrey MD [address] [place] [address] Hematology and Oncology 09/09/24 [facility] 09/27/24 documented as of this encounter
--- OUTSIDE RECORDS SUMMARY | 2024-11-30 17:16 | XMS_ITS | Continuity of Care Document ---
Author Organization [facility]. If a dditional information is needed, contact Health Information Management at [phone] Address [address] [place] [address] Phone Care Team Providers Care Drapery Head Former Name Role Phone Unavailable Unavailable Unavailable Unavailable Unavailable Unavailable Unavailable Unavailable Unavailable Unavailable Unavailable Unavailable Unavailable Unavailable Unavailable Unavailable Unavailable Unavailable Unavailable Unavailable Unavailable Unavailable Unavailable Unavailable Unavailable Unavailable Unavailable Problems History of malignant neoplas m of breast Onset:28-Sep-2023 VUONI99 Hyperbilirubinemia Onset:28-Sep-2023 VUONI99 Enzyme level - finding Onset:28-Sep-2023 VUONI99 Fever Onset:28-Sep-2023 VUONI99 Disorder of brain Onset:28-Sep-2023 VUONI99 Alkaline phosphatase above r eference range Onset:28-Sep-2023 VUONI99 Cholangiectasis Onset:28-Sep-2023 VUONI99 Mental Status Cognitive function finding [...] MILLIGRAM* DAILY 0900 Quantity:1 Regulo Funez MD Start:57-Avg-2623Glo: 024 Status:Discontinued Comments:[id number] Administration Instructions:FORMULARY FOR PRILOSEC 20 MG BID [...] Injection [Protonix];40 MILLIGRAM* DAILY 0900 Quantity:1 LINED99 Start:9-Jub-3885Ggc:28-Dec-19 Status:Discontinued Comments:[id number] Administration Instructions:-Reconstitute with 10 ml 0.9% NaCl ONLY.-Administer through a dedicated IV line. Ifdedicated IV line is unavailable, contactpharmacist for guidelines.Flush IV line before and after pantoprazoleadministration.- rocuronium bromide 10 MG/ML Injectable Solution [Zemuron] Quantity:1 LINED99 Start:29-Sep-2023 Status:Discontinued midazolam 1 MG/ML Injectable Solution Quantity:1 LINED99 Start:29-Sep-2023 Status:Discontinued phenylephrine hydrochloride 10 MG/ML Injectable Solution Quantity:1 [...] hydrochloride 2. 5 MG/ML Injectable Solution Quantity:1 LINED99 Start:29-Sep-2023 Status:Discontinued traMADol hydrochloride 50 MG Oral Tablet;50 MILLIGRAM* ORAL Q6H PRN Start:29-Sep-2023 Comments:50 MG PO Q6H PRN As Needed for pain ibuprofen 600 MG Oral Tablet;600 MILLIGRAM* ORAL Q6H PRN Start:29-Sep-2023 Comments:600 MG PO Q6H PRN As Needed for pain Dexamethasone 4 MG/ML Injectable Solution Quantity:1 Jose Carrera DO Start:28-Sep-2023 Status:Discontinued ondansetron 2 MG/ML Injectab le Solution [Zofran] Quantity:1 Jose Carrera DO Start:28-Sep-2023 iopamidol;Provider Administration Instructions: RADIOLOGY USE ONLY Quantity:1 [...] chloride 10 MEQ Extended Release Oral Tablet [Klor-Con];[id number] Administration Instructions:3.8-4.0, give 20 mEq3.5-3.7, give 30 mEq3.3-3.4, give 40 mEq3.0-3.2, give 50 mEq2.6-2.9, give 60 mEq< 2.6, give 80 mEqSEE ADMIN CRITERIA - TAKE WITH FOOD(OSELECPROT) Quantity:0 Jose Carrera DO Start:9-Lzi-9721Guq:27-Dec-19 Status:Discontinued Comments:[id number] Administration Instructions:3.8-4.0, give 20 mEq3.5-3.7, give 30 mEq3.3-3.4, give 40 mEq3.0-3.2, give 50 mEq2.6-2.9, give 60 mEq< 2.6, give 80 mEqSEE ADMIN CRITERIA - TAKE WITH FOOD(OSELECPROT) acetaminophen 325 MG Oral Tablet [Tylenol];650 MILLIGRAM* Q4H PRN Quantity:2 Jose Carrera DO Start:7-Fjd-1997Urh:27-Dec-19 Status:Discontinued Comments:[id number] Administration Instructions:Do not exceed 12 tablets in 24 hoursMaximum acetaminophen dose = 4000 mg in 24 hours 100 ML potassium chloride 0. 1 MEQ/ML Injection;[id number] Administration Instructions:* SEE ADMIN CRITERIA *Infusion should not exceed 10 mEq of potassiumevery hour.(If infused via central line may give up to 10mEq of potassium over 30 minutes in emergentcases)OSELECPROT Jose Carrera DO Start:9-Sap-5060Czp:27-Dec-19 Status:Discontinued Comments:[id number] Administration Instructions:* SEE ADMIN CRITERIA *Infusion should not exceed 10 mEq of potassiumevery hour.(If infused via central line may give up to 10mEq of potassium over 30 minutes in emergentcases)OSELECPROT Magnesium Sulfate 0.325 MEQ/ ML Injectable Solution;[id number] Administration Instructions:Magnesium Protocol - For Patients NOT ABLE totake oral medsSEE ADMIN CRITERIA(OSELECPROT) Jose Carrera DO Start:0-Tnx-4882Jxq:27-Dec-19 Status:Discontinued Comments:[id number] Administration Instructions:Magnesium Protocol - For Patients NOT ABLE totake oral medsSEE ADMIN CRITERIA(OSELECPROT) CALCIUM PROTOCOL_CALPROT;[id number] er Administration Instructions:SEE COMMENTSCALL PHYSICIAN BEFORE IMPLEMENTATION ofthe electrolyte replacementand/or before administration of dose ifpatient has one of the following below criteria.Replacement dosage WILL REQUIRE ADJUSTMENT. Quantity:0 Jose Carrera DO Start:3-Eiq-7370Dhh:27-Dec-19 Status:Discontinued Comments:[id number] Administration Instructions:SEE COMMENTSCALL PHYSICIAN BEFORE IMPLEMENTATION ofthe electrolyte replacementand/or before administration of dose ifpatient has one of the following below criteria.Replacement dosage WILL REQUIRE ADJUSTMENT. acetaminophen 325 MG Oral Tablet [Tylenol];650 MILLIGRAM* Q4H PRN Quantity:2 Yessi Velarde MD Start:4-Fbu-8582Oaq:27-Dec-19 Status:Discontinued Comments:[id number] Administration Instructions:Do not exceed 12 tablets in 24 hoursMaximum acetaminophen dose = 4000 mg in 24 hours ondansetron 2 MG/ML Injectab le Solution [Zofran];4 MILLIGRAM* Q4H PRN Quantity:1 Yessi Velarde MD Start:0-Cbr-5374Emf:27-Dec-19 Status:Discontinued Comments:[id number] sodium chloride 9 MG/ML Injectable Solution;Provider Administration Instructions: EXTENDED INFUSION Attach bag to adaptor. Reconstitute medication by squeezingsolution into vial. Squeeze bag to push dissolved medicationinto bag. SHAKE WELL. Scan vial bag separately. Yessi Velarde MD Start:5-Pqj-4003Qsk:27-Dec-19 Status:Discontinued Comments:Provider Administration Instructions: EXTENDED INFUSION Attach bag to adaptor. Reconstitute medication by squeezingsolution into vial. Squeeze bag to push dissolved medicationinto bag. SHAKE WELL. Scan vial bag separately. 100 ML potassium chloride 0. 1 MEQ/ML Injection;[id number] Administration Instructions:* SEE ADMIN CRITERIA *Infusion should not exceed 10 mEq of potassiumevery hour.(If infused via central line may give up to 10mEq of potassium over 30 minutes in emergentcases)OSELECPROT Evin Velarde MD Start:0-Pqj-2056Elc:27-Dec-2023 Status:Discontinued Comments:[id number] Administration Instructions:* SEE ADMIN CRITERIA *Infusion should not exceed 10 mEq of potassiumevery hour.(If infused via central line may give up to 10mEq of potassium over 30 minutes in emergentcases)OSELECPROT Magnesium Sulfate 0.325 MEQ/ ML Injectable Solution;[id number] Administration Instructions:Magnesium Protocol - For Patients NOT ABLE totake oral medsSEE ADMIN CRITERIA(OSELECPROT) Evin Velarde MD Start:5-Odb-4919Jaj:27-Dec-2023 Status:Discontinued Comments:[id number] Administration Instructions:Magnesium Protocol - For Patients NOT ABLE totake oral medsSEE ADMIN CRITERIA(OSELECPROT) PHOSPHOROUS PROTOCOL_PHOSPROT;[id number] benny Administration Instructions:SEE COMMENTSCALL PHYSICIAN BEFORE IMPLEMENTATION ofth electrolyte replacementand/or before administration of dose ifpatient has one of the following below criteria.Replacement dosage WILL REQUIRE ADJUSTMENT. Quantity:0 Evin Paul Velarde MD Start:4-Aof-7893Qdu:27-Dec-2023 Status:Discontinued Comments:[id number] Administration Instructions:SEE COMMENTSCALL PHYSICIAN BEFORE IMPLEMENTATION ofth [...] ORAL TID Start:28-Sep-2023 Comments:300 MG PO TID apixaban 5 MG Oral Tablet [Eliquis];5 MILLIGRAM* ORAL BID Start:28-Sep-2023 Comments:5 MG PO BID carvedilol 6.25 MG Oral Tabl et [Coreg];6.25 MILLIGRAM* ORAL BID Start:28-Sep-2023 Comments:6.25 MG PO BID omeprazole 40 MG Delayed Release Oral Capsule;40 MILLIGRAM* ORAL BID Start:28-Sep-2023 Comments:40 MG PO BID Social History Smoking Status Never smoked tobacco Recorded: 28-Sep-2023
--- OUTSIDE RECORDS SUMMARY | 2024-11-30 17:16 | XMS_ITS | Encounter Summary ---
Author Organization [facility] Address [address] [facility] [address] [place] [address] Care Team Providers Care E M Assembler Name Role Phone Tabitha Gerard MD Primary Care Provider [phone] Ismael Stout MD Unavailable [phone] Milagro Humphrey MD Unavailable [phone] Encounter Details Date Type Department Care Team (Late st Contact Info) Description 08/20/2023 Orders Only [facility] MEDICINE [address] [place], [place] [phone] Tabitha Gerard MD [address] [place], [place] [phone] Social History Tobacco Use Types Packs/Day Years [...] on file documented as of this encounter Procedures Procedure Name Priority Date/Time Associated Diagnosis Comments COLONOSCOPY Routine 08/11/2023 documented in this encounter Results * Colonoscopy (08/11/2023) Colonoscopy Normal Normal Comment:hyperplastic polyp w ith Dr. Clarke us Historical Provider HEALTH MAINTENANCE Final Result documented in this encounter Visit Diagnoses Not on filedocumented in this encounter Care Teams E M Assembler Relationship Specialty Start Date End Date Tabitha Gerard MD [address] [place] [address] PCP - General Family Medicine 09/21/18 Ismael Stout MD [address] [place] [address] Cardiology 09/07/24 Milagro Humphrey MD [address] [place] [phone] Hematology and Oncology 09/09/24 RUDI Alberto [facility] 09/27/24 documented as of this encounter
--- OUTSIDE RECORDS SUMMARY | 2024-11-30 17:16 | XMS_ITS | Clinical Summary ---
Author Organization [address] [facility] Address [address] [place] [address] Phone Care Team Providers Care Cleaner And Dyer Name Role Phone Tabitha Gerard MD Primary Care Provider [phone] Allergies No known active allergies Medications ammonium lactate (LAC-HYDRIN) 12 % lotion Apply to soles of feet daily. 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); Arthritis of both feet; Hammertoes of both feet; Dermatophytosis, nail 09/26/2024 2:45 PM EST Office Visit Orthopedic [facility] [address] [phone] Jignesh Mckeon DPM Controlled type 2 diabetes [...] - - Weight 68 kg (150 lb) 11/28/2024 1:01 PM EDT Height 165.4 cm (5' 5.12 ) 11/28/2024 1:01 PM ED T Body Mass Index 24.87 11/28/2024 1:01 PM EDT Plan of Treatment Upcoming Encounters Date Type Department Care Team (Late st Contact Info) Description 01/30/2025 2:00 PM EDT Office Visit Orthopedic Surgery - [place] [address] [phone] Jignesh Mckeon, NICOLE [address] [address] Health Maintenance Due Date Last Done Comments [...] patient's age to complete this topic Insurance [facility] MEDICARE Member Subscriber Plan / Payer (Ef fective 2022-Present) Name:Lacey Gonzales Relation to Subscriber:Self Name:Lacey Gonzales Payer ID:[id number] Group ID:[id number] Type:Not on file Address: [address] [facility] [place] [address] Care Teams Cleaner And Dyer Relationship Specialty Start Date End Date Otter, MD Tabitha [address] [place] [phone] PCP - General 02/09/24
--- OUTSIDE RECORDS SUMMARY | 2024-11-30 17:16 | XMS_ITS | Data Portability ---
Author Organization [employer] [employer] [facility] [employer] Address [address] [place] [phone] Care Team Providers Care Seamark Advanced Operator Maintainer Name Role Phone HIM CCA OTHER Assessment Encounter Date Assessment Date Assessment LastModified by Organization Details LastModified Time 05/30/2024 05/30/2024 service called for vulvar and vaginal itching found 73 arash with hx T2DM c/o 1-2 wk vaginal and vulvar itching c/o candiasis has been unable to pickup topical cream from [facility] pharmacy requesting anti-fungal topical cream sent [...] e 1 % vaginal cream 2023 024 [facility][id number], [address] [place], [address], 18:46:47 Patient TargetsNo targets recorded. Patient InstructionsNo instructions recorded. Reason for Referral None Reported. Medical Equipment None Reported. Allergies Allergen ID Allergen Name Allergen Category Reaction Reaction Severity Criticality Documentation Date Start Date Code Code System Note Provider Name and Address Organization Details Recorded Time 9241 Product containin g penicilli n (product) medicatio n Not available Not available Not available 07/19/2024 [id number] SNOMED Not Available [facility] - production [...] SNOMED-CT Code Diagnosis ICD10 Code Diagnosis Note [id number] Magali Doyle MD Main - [facility] [address] [place] [phone] 05/30/2024 18:41:29 06/01/2024 13:06:18 Candidal vulvovaginitis 56518787 B37.31 Health Concerns Section Related Observation LastModified by Organization Detai ls LastModified Time None Recorded Concern Status LastModified by Organization Details LastModified Time None Recorded Advance Directives Directive None Recorded Payers Encounter Date Sequence Insurance Name Policy Number Policy Nieto Covered Member ID Nieto Member ID Guarantor Name 05/30/2024 1 [facility] - DOS ON OR AFTER 2022 - DUAL ELIGIBLE - SKILLED NURSING OPTIONS AND ONE CARE (MEDICARE REPLACEMENT/ADV ANTAGE - HMO) Lacey Gonzales [id number] Lacey Gonzales Notes Date Note Type Note [...] .................. .................. .................. .................. .................. .................. ............... Machine Assembler Supervisor Note From Jarad Banks: [facility] visit for female pt. Pt French speaking only so translator and interpreter was used. Pt presents complaining of discomfort relating to vaginal yeast infection. Pt was seen 5 days ago and diagnosed with yeast infection. Pt was prescribed antifungal cream but has been unable to make it to pharmacy. V/S taken as listed. Pt afebrile. Pt uncertain which pharmacy and which med was sent for her. Consulted with [facility] [place] Doyle who prescribed antifungal cream and sent to [facility] for pt to have [facility] pickup. Pt education provided. .................. .................. .................. .................. .................. .................. .................. ............... Disposition: Fulfilled Magali Doyle MD [address] [place] [address],[address] [facility], [place], [address], [facility] - ANDRES RODAS 05/30/2024 23:22:53 OBGyn Episode No OBEpisode recorded.
--- OUTSIDE RECORDS SUMMARY | 2024-11-30 17:16 | XMS_ITS | Encounter Summary ---
Author Organization [facility] Address [address] 7t [place] [address] Care Team Providers Care Bottom Hoop Driver Name Role Phone Tabitha Gerard MD Primary Care Provider [phone] Ismael Stout MD Unavailable [phone] Milagro Humphrey MD Unavailable [phone] Reason for Visit * Reason Comments follow up A1c Encounter Details Date Type Department Care Team (Latest Contact Info) Description 11/30/2024 2:00 PM EDT Office Visit [facility] [address] [place] [address] Tabitha Gerard MD [address] [place], [place] [id number] Type 2 diabetes mellitus with hyperosmolarity without coma, without long-term current use of insulin (CMS/HCC) (Primary Dx); Benign hypertension; Overweight; Exercise counseling; Dietary counseling; Gastroesophageal reflux disease, unspecified whether esophagitis present; Pain; Infiltrating ductal carcinoma of left female breast (CMS/HCC); Encounter for immunization Social History Tobacco Use Types Packs/Day Years Used Date Smoking Tobacco: Never Smokeless Tobacco: Never Alcohol Use Standard Drinks/Week Comments Never 0 (1 standard drink = 0.6 oz pur e alcohol) Depression Answer Date Recorded Patient Health Questionnaire-9 [...] Sign Reading Time Taken Comments Blood Pressure 124/71 11/30/2024 2:11 PM EDT Pulse 60 11/30/2024 2:11 PM EDT Temperature 37.1 ??C (98.7 ??F) 11/30/2024 2:11 PM ED T Respiratory Rate 20 11/30/2024 2:11 PM EDT Oxygen Saturation 99% 11/30/2024 2:11 PM EDT Inhaled Oxygen Concentration - - Weight 69.4 kg (153 lb) 11/30/2024 2:11 PM EDT Height - - Body Mass Index 26.26 10/22/2023 2:53 PM EST documented in this encounter Progress Notes * Tabitha Gerard MD - 11/30/2024 2:00 PM EDT Subjective Patient ID: Lacey Gonzales is a 74 y.o. female with past medical history of type 2 diabetes, hypertension, A-fib and history of breast cancer who presents for follow up (A1c). She reports she saw the [facility] on Thursday and had her foot exam done. Denies any alcohol use today. States she had her mammogram done at [facility] on 11/25/24. Agrees to Flu vaccine today. Review of Systems Constitutional: Negative for fever and unexpected weight change. Respiratory: Negative for shortness of breath. Cardiovascular: Negative for chest pain. Gastrointestinal: Negative for abdominal pain. Genitourinary: Negative for difficulty urinating. Objective Visit Vitals BP 124/71 (BP Location: Left arm, Patient Position: Sitting, BP Cuff Size: Adult) Pulse 60 Temp 98.7 ??F (37.1 ??C) (Temporal) Resp 20 Body mass index is 26.26 kg/m??. Physical Exam Constitutional: Appearance: Normal appearance. Cardiovascular: Rate and Rhythm: Normal rate. Pulses: Dorsalis pedis pulses are 2+ on the right side and 2+ on the left side. Pulmonary: Effort: Pulmonary effort is normal. Chest: Comments: Declines breast exam today. Musculoskeletal: Right foot: No deformity or Charcot foot. Left foot: No deformity or Charcot foot. Feet: Right foot: Protective Sensation: 5 sites tested. 4 sites sensed. Skin integrity: Skin integrity normal. Toenail Condition: Right toenails are normal. Left foot: Protective Sensation: 5 sites tested. 4 sites sensed. Skin integrity: Skin integrity normal. Toenail Condition: Left toenails are normal. Neurological: General: No focal deficit present. Mental Status: She is alert. Psychiatric: Behavior: Behavior normal. Problem List Items Addressed This Visit Type 2 diabetes mellitus ([facility]) - Primary -Controlled on diet alone -Metformin discontinued 11/2021 due to A1c at goal Diabetes is controlled. Lab Results Component Value Date HGBA1C 7.4 (A) 05/25/2024 HGBA1C 6.5 (H) 12/16/2023 HGBA1C 6.8 (A) 12/09/2023 Lab Results Component Value Date MICROALBUR 12.0 12/16/2023 CREATININE 0.61 12/16/2023 -Changes: none -Sunny/Arb: lisinopril 10mg daily -Statin therapy: atorvastatin 40mg daily -Diabetic eye exam: referral to [facility] placed 03/16/2023 -Diabetic foot exam: done at [facility] 11/28/24, rechecked today 11/30/24 -Continue lifestyle modifications -Continue medications Benign hypertension -Blood pressure is at goal -Continue lifestyle modifications -Continue current medications Overweight Discussed weight, diet, exercise with patient in relation to health conditions. Used motivational interviewing to illicit change talk and established initial goals with patient. Exercise counseling Exercise Recommendations: At least 150 minutes of moderate-intensity physical activity per week, or an equivalent combinationof moderate- and vigorous-intensity activity Dietary counseling Dietary Recommendations: Fruits, vegetables, whole grains, protein foods, and fat-free or low-fat dairy products are healthychoices. Eat different types of protein foods in your diet. This can include seafood, lean meats, poultry, beans, peas, lentils, nuts, seeds, soy products, and eggs. Limit foods and beverages higher in added sugars, saturated fat, and sodium. Gastroesophageal reflux disease -refilled omeprazole (PriLOSEC) [address] 11/30/24 Relevant Medications omeprazole (PriLOSEC) [address] capsule Pain -refilled gabapentin (Neurontin) 300 MG 11/30/24 Relevant Medications gabapentin (Neurontin) 300 MG capsule Infiltrating ductal carcinoma of left female breast (CMS/HCC) Left breast invasive ductal carcinoma diagnosed 05/2021 -She presented on 03/06/2021 with a rash on her left breast that had been present for a month. Biopsy 03/2021 revealed invasive adenocarcinoma, ER/OR positive HER 2 negative. . -MRI done [...] adjuvant radiation therapy with Dr. Zamudio [facility] between October to November 2021. -Genetic testing for inherited breat/ovarian cancer syndrome discussed with oncology declined -She is a candidate for adjuvant hormonal therapy with aromatase inhibitor for 5 years. She startedaromatase inhibitor, letrozole 2.5 mg once daily from 12/13/2021. Five years will be 12/13/2026. -Seen by Dr. Mathews 11/25/23 -Saw Oncology on -Mammogram 11/17/23 BIRADS 1 negative -done at [facility] 11/25/24, will request records. Other Visit Diagnoses Encounter for immunization Relevant Orders FLU VACCINE TRIVALENT (Fluarix) 6 mo + Follow up in about 9 months (around 09/01/2025) for physical. I, Antoinette Gama, am serving as a scribe to document services personally performed by Dr. Myers, based on the patient's response to questions by provider and providers statements to me. documented in this encounter Miscellaneous Notes * Assessment & Plan Note - Antoinette Gama - 11/30/2024 2:34 PM EDTAssociated Problem(s): Type 2 diabetes mellitus ([facility]) -Controlled on diet alone -Metformin discontinued 11/2021 due to A1c at goal Diabetes is controlled. Lab Results Component Value Date HGBA1C 7.4 (A) 05/25/2024 HGBA1C 6.5 (H) 12/16/2023 HGBA1C 6.8 (A) 12/09/2023 Lab Results Component Value Date MICROALBUR 12.0 12/16/2023 CREATININE 0.61 12/16/2023 -Changes: none -Sunny/Arb: lisinopril 10mg daily -Statin therapy: atorvastatin 40mg daily -Diabetic eye exam: referral to [facility] placed 03/16/2023 -Diabetic foot exam: done at [facility] 11/28/24, rechecked today 11/30/24 -Continue lifestyle modifications -Continue medications * Assessment & Plan Note - Antoinette Gama - 11/30/2024 2:33 PM EDTAssociated Problem(s): Pain -refilled gabapentin (Neurontin) 300 MG 11/30/24 * Assessment & Plan Note - Antoinette Gama - 11/30/2024 2:29 PM EDTAssociated Problem(s): Gastroesophageal reflux disease -refilled omeprazole (PriLOSEC) 20 MG 11/30/24 * Assessment & Plan Note - Antoinette Gama - 11/30/2024 2:29 PM EDTAssociated Problem(s): Benign hypertension -Blood pressure is at goal -Continue lifestyle modifications -Continue current medications * Assessment & Plan Note - Antoinette Gama - 11/30/2024 2:23 PM EDTAssociated Problem(s): Infiltrating ductal carcinoma of left female breast (CMS/HCC) Left breast invasive ductal carcinoma diagnosed 05/2021 -She presented on 03/06/2021 with a rash on her left breast that had been present for a month. Biopsy 03/2021 revealed invasive adenocarcinoma, ER/OR positive HER 2 negative. . -MRI done [...] adjuvant radiation therapy with Dr. Zamudio [facility] between October to November 2021. -Genetic testing for inherited breat/ovarian cancer syndrome discussed with oncology declined -She is a candidate for adjuvant hormonal therapy with aromatase inhibitor for 5 years. She startedaromatase inhibitor, letrozole 2.5 mg once daily from 12/13/2021. Five years will be 12/13/2026. -Seen by Dr. Mathews 11/25/23 -Saw Oncology on -Mammogram 11/17/23 BIRADS 1 negative -done at [facility] 11/25/24, will request records. * Assessment & Plan Note - Antoinette Gama - 11/30/2024 2:13 PM EDTAssociated Problem(s): Overweight Discussed weight, diet, exercise with patient in relation to health conditions. Used motivational interviewing to illicit change talk and established initial goals with patient. * Assessment & Plan Note - Antoinette Gama - 11/30/2024 2:13 PM EDTAssociated Problem(s): Exercise counseling Exercise Recommendations: At least 150 minutes of moderate-intensity physical activity per week, or an equivalent combinationof moderate- and vigorous-intensity activity * Assessment & Plan Note - Antoinette Gama - 11/30/2024 2:13 PM EDTAssociated Problem(s): Dietary counseling Dietary Recommendations: Fruits, vegetables, whole grains, protein foods, and fat-free or low-fat dairy products are healthychoices. Eat different types of protein foods in your diet. This can include seafood, lean meats, poultry, beans, peas, lentils, nuts, seeds, soy products, and eggs. Limit foods and beverages higher in added sugars, saturated fat, and sodium. documented in this encounter Plan of Treatment Scheduled Orders Name Type Priority Associated Diagnoses Orde r Schedule Albumin, Random Urine W/Creatinine Lab Routine Type 2 diabetes mellitus with hyperosmolarity without coma, without long-term current use of insulin (CMS/HCC) Expected: 11/30/2024 (Approximate), Expires: 11/30/2025 Hepatic Function Panel Lab Routine Type 2 diabetes mellitus with hyperosmolarity without coma, without long-term current use of insulin ([facility]) Expected: 11/30/2024 (Approximate), Expires: 11/30/2025 Lipid Panel, Standard Lab Routine Type 2 diabetes mellitus with hyperosmolarity without coma, without long-term current use of insulin ([facility]) Expected: 11/30/2024 (Approximate), Expires: 11/30/2025 Hemoglobin A1c Lab Routine Type 2 diabetes mellitus with hyperosmolarity without coma, without long-term current use of insulin ([facility]) Expected: 11/30/2024 (Approximate), Expires: 11/30/2025 Basic Metabolic Panel Lab Routine Type 2 diabetes mellitus with hyperosmolarity without coma, without long-term current use of insulin ([facility]) Expected: 11/30/2024 (Approximate), Expires: 11/30/2025 documented as of this encounter Procedures Procedure Name Priority Date/Time Associated Diagnosis Comments POCT GLUCOSE Routine 11/30/2024 2:46 PM EDT Type 2 diabetes mellitus with hyperosmolarity without coma, without long-term current use of insulin ([facility]) POCT GLYCOSYLATED HEMOGLOBIN (HGB A1C) Routine 11/30/2024 2:45 PM EDT Type 2 diabetes mellitus with hyperosmolarity without coma, without long-term current use of insulin ([facility]) documented in this encounter Results * POCT glucose manually resulted (11/30/2024 2:46 PM EDT) Pathologist [facility] Glucose Blood, POC 142 60 - 200 mg/dL QC Media Lot # [id number] Lot# Expiration Date [id number] Blood Capillary blood specimen / Unknown 11/30/2024 2:46 PM EDT Tabitha Gerard MD POINT OF CARE TEST ENTER/E DIT ORDERABLES Final Result * (ABNORMAL) POCT glycosylated hemoglobin (Hgb A1c) (11/30/2024 2:45 PM EDT) Pathologist [facility] Hemoglobin A1C 7.0(A) 4.0 - 6.0 % QC Media Lot # [id number] Lot# Expiration Date Blood Capillary blood specimen / Unknown 11/30/2024 2:45 PM EDT Tabitha Gerard MD POINT OF CARE TEST ENTER/E DIT ORDERABLES Final Result documented in this encounter Visit Diagnoses Diagnosis Type 2 diabetes mellitus with hyperosmolarity without coma, without long-term current use of insulin ([facility])- Primary Benign hypertension Essential hypertension, benign Overweight Exercise counseling Dietary counseling Dietary surveillance and counseling Gastroesophageal reflux disease, unspecified whether esophagitis present Pain Generalized pain Infiltrating ductal carcinoma of left female breast ([facility]) Encounter for immunization documented in this encounter Additional Health Concerns Assessment Noted Time PHQ-9 Depression Total Score: 0 12/01/19 2:44 PM EDT documented as of this encounter Care Teams Bottom Hoop Driver Relationship Specialty Start Date End Date Tabitha Gerard MD [address] [place] [address] PCP - General Family Medicine 09/21/18 Ismael Stout MD [address] [place] [address] Cardiology 09/07/24 Milagro Humphrey MD [address] [place] [id number] Hematology and Oncology 09/09/[address] [facility] Orthopedics 09/27/24 documented as of this encounter
--- OUTSIDE RECORDS SUMMARY | 2024-11-30 17:16 | XMS_ITS | Encounter Summary ---
Author Organization [facility] Address [address] [place] [address] Care Team Providers Care Internet Assessor Name Role Phone Tabitha Gerard MD Primary Care Provider [phone] Reason for Visit * Reason Comments DM Foot Care Controlled type 2 di abetes with neuropathy (CMS/HCC)Arthritis of both feetHammertoes of both feetDermatophytosis, nail Encounter Details Date Type Department Care Team (Late st Contact Info) Description 11/28/2024 1:30 PM EDT Office Visit Orthopedic Surgery - [place] [address] [phone] Jignesh Mckeon DPM [address] [address] Controlled type 2 diabetes with neuropathy (CMS/HCC) (Primary Dx); Arthritis of both feet; Hammertoes of both feet; Dermatophytosis, nail Social History Tobacco Use Types Packs/Day Years Used Date Smoking Tobacco: Never Assessed Comments Unknown Sex and Gender Information Value Date Recorded Sex Assigned at Not on file Legal Sex Female 3:33 PM EST Gender Identity Not on file Sexual Orientation Not on file documented as of this encounter Last Filed [...] Mass Index 24.87 11/28/2024 1:01 PM EDT documented in this encounter Progress Notes * Jignesh Mckeon DPM - 11/28/2024 1:30 PM EDT PCP: Rajani Last PCP visit: 08/05/2024 IDENTIFIER: @TITLE@ Christian is a 74 y.o. year old female who presents for consultation. CC: Pain in feet HPI: Patient returns today for multiple forefoot deformities Patient relates that she continues to have some tingling numbness and sharp shooting pain from timeto time within the feet bilaterally Denies any history of ulceration, or infection. Patient relates that the nails of bilateral feet continue to be thickened misshapened and causing sores on adjacent digits Patient is wearing good supportive shoes at this time. Patient reports mild calluses that are becoming bothersome. Patient with minimal other pedal complaints at this time. Patient's FBS this AM was 122 Recent A1C is %. Unknown ROS: GENERAL: Pt denies nausea, fever, vomiting, chills, or shortness of breath. Pt in NAD. CARDIOLOGY: pt denies chest pain, palpitations LUNGS: pt denies shortness of breath MUSCULOSKELETAL: See HPI, otherwise no joint pain or swelling, back pain, or muscle pain. SKIN: see HPI, otherwise no lesions, rash or itching NEURO: No persistent headache, weakness or numbness The remainder of the review of systems is noncontributory PAST MEDICAL HISTORY: There is no problem list on file for this patient. SOCIAL HISTORY: Social History Tobacco Use Smoking status: Not on file Smokeless tobacco: Not on file Substance Use Topics Alcohol use: Not on file ACTIVE MEDICATIONS: Outpatient Medications Marked as Taking for the 11/28/24 encounter (Office Visit) with Jignesh Mckeon DPM Medication Sig Dispense Refill ammonium lactate (LAC-HYDRIN) 12 % lotion Apply to soles of feet daily. At night wear socks to bed ALLERGIES: @ALL@ PHYSICAL EXAM: Height 1.654 m (65.12 ), weight 68 kg (150 lb). PODIATRIC EXAMINATION: GENERAL: Patient appears well nourished, with NAD. VASCULAR: Dorsalis pedis pulses are 2/4 bilaterally and Posterior tibial pulses are 2/4 bilaterally. Capillary filling time within normal limits the digits. No pallor on elevation or rubor on dependency. Positive hair growth. No varicosities. Denies rest pain or claudication pain. NEUROLOGICAL: Sharp/dull sensation intact, protective sensation diminished on [place]. Multiple peripheral neuropathies bilaterally ORTHOPEDIC: Good muscle strength 5/5 of all flexors and extensors. Dorsi flexion of ankle ,10 degrees, plantar flexion WNL. No muscle atrophy. Arthritic changes to the dorsal aspect of the midfoot bilaterally. Increased curvature of digits 2 through 5. Flexible flatfoot deformity bilaterally. DERMATOLOGICAL:.Increased hyperkeratosis plantar aspect of the feet bilaterally. Normal skin temperature, normal skin turgor. Nails are thickened misshapened discolored x 10 with subungual debris BIOMECHANICS: STJ ROM wnl, MTJ ROM wnl, 1st MPJ ROM wnl. IMPRESSION: 1. Controlled type 2 diabetes with neuropathy (CMS/HCC) 2. Arthritis of both feet 3. Hammertoes of both feet 4. Dermatophytosis, nail PLAN: Pt was seen and examined, history reviewed. Patient once again was educated on the importance of tight glucose control as this limits the chance for nonhealing wounds infections and future amputation Patient is continuing to have flareups from the arthritic changes in her feet from time to time. Patient encouraged to use topical analgesic to limit the inflammation She was once again educated on the contractures of her digits require offloading in order to limit pressure to the distal radha Patient instructed to continue with moisturizer daily in order to limit the patient's thickening ofskin to the plantar aspect of the feet Nail debridement performed to nails 1-5 bilateral as nails were described to be causing pain and difficulty for walking while in shoegear at their previous length. They were debrided in thickness andlength, with no incident. Clinical evidence of mycosis is documented which required active treatment. Patient expressed immediate relief. Patient is to RTC in 9 weeks Jignesh Mckeon DPM documented in this encounter Plan of Treatment Upcoming Encounters Date Type Department Care Team (Late st Contact Info) Description 01/30/2025 2:00 PM EDT Office Visit Orthopedic Surgery - [place] [address] [phone] Jignesh Mckeon DPM 175 [facility] [address] [place] [address] documented as of this encounter Visit Diagnoses Diagnosis Controlled type 2 diabetes with neuropathy ([facility])- Primary Type II or unspecified type diabetes mellitus with neurological manifestations, not stated as uncontrolled Arthritis of both feet Hammertoes of both feet Dermatophytosis, nail Dermatophytosis of nail documented in this encounter Care Teams Internet Assessor Relationship Specialty Start Date End Date Tabitha Geradr MD [address] [place] [phone] PCP - General 02/09/24 documented as of this encounter
--- OUTSIDE RECORDS SUMMARY | 2024-11-30 17:16 | XMS_ITS | Encounter Summary ---
Author Organization [facility] Address [address] [place] [address] [address] [place] [address] Care Team Providers Care Addiction Psychiatrist Name Role Phone Tabitha Gerard MD Primary Care Provider [phone] Ismael Stout MD Unavailable [phone] Milagro Humphrey MD Unavailable [phone] Reason for Visit * Reason Comments Med Refill Encounter Details Date Type Department Care Team ([facility] st Contact Info) Description 10/24/2022 Refill [facility] [address] [place] [address] Tabitha Gerard MD [address] [place] [address] Constipation, unspecified constipation type Social History Tobacco [...] type documented in this encounter Care Teams Addiction Psychiatrist Relationship Specialty Start Date End Date Tabitha Gerard MD [address] [place] [address] PCP - General Family Medicine 09/21/18 Ismael Stout MD [address] [place] [address] Cardiology 09/07/24 Milagro Humphrey MD [address] [place] [address] Hematology and Oncology 09/09/24 [facility] 09/27/24 documented as of this encounter
--- OUTSIDE RECORDS SUMMARY | 2024-11-30 17:16 | XMS_ITS | Encounter Summary ---
Author Organization [employer] Address [address] [facility] [address] [place] [address] Care Team Providers Care Examination Scorer Name Role Phone Tabitha Gerard MD Primary Care Provider [phone] Ismael Stout MD Unavailable [phone] Milagro Humphrey MD Unavailable [phone] Reason for Visit * Reason Comments Med Refill Encounter Details Date Type Department Care Team (Late st Contact Info) Description 02/11/2024 Refill [facility] [address] [place] [address] Tabitha Gerard MD [address] [place] [address] Dyslipidemia Social History Tobacco Use Types Packs/Day [...] documented as of this encounter Care Teams Examination Scorer Relationship Specialty Start Date End Date Tabitha Gerard MD [address] [place] [address] PCP - General Family Medicine 09/21/18 Ismael Stout MD [address] [place] [address] Cardiology 09/07/24 Milagro Humphrey MD [address] [place] [address] Hematology and Oncology 09/09/24 [place] [facility] Orthopedics 09/27/24 documented as of this encounter
--- OUTSIDE RECORDS SUMMARY | 2024-11-30 17:17 | XMS_ITS | Encounter Summary ---
Author Organization [employer] Address [address] [facility] [address] [place] [address] Care Team Providers Care Sales Teacher Name Role Phone Tabitha Gerard MD Primary Care Provider [phone] Ismael Stout MD Unavailable [phone] Milagro Humphrey MD Unavailable [phone] Reason for Visit * Reason Comments Med Refill Encounter Details Date Type Department Care Team (Late st Contact Info) Description 11/09/2024 Refill [facility] [address] [place] [address] Tabitha Gerard MD [address] [place] [address] Pain; Paroxysmal atrial fibrillation (CMS/HCC) Social History [...] documented as of this encounter Care Teams Sales Teacher Relationship Specialty Start Date End Date Tabitha Gerard MD [address] [place] [address] PCP - General Family Medicine 09/21/18 Ismael Stout MD [address] [place] [address] Cardiology 09/07/24 Milagro Humphrey MD [address] [place] [address] Hematology and Oncology 09/09/24 [place] [facility] Orthopedics 09/27/24 documented as of this encounter
--- OUTSIDE RECORDS SUMMARY | 2024-11-30 17:17 | XMS_ITS | Encounter Summary ---
Author Organization [employer] Address [address] [facility] 7t [place] [address] Care Team Providers Care Cold Strip Roller Name Role Phone Tabitha Gerard MD Primary Care Provider [phone]- [phone] Ismael Stout MD Unavailable [phone] Milagro Humphrey MD Unavailable [phone] Reason for Visit * Reason Comments Med Change Request Encounter Details Date Type Department Care Team ([facility] st Contact Info) Description 07/10/2024 Refill [facility] MEDICINE [address] [place] [address] Tabitha Gerard MD [address] [place] [address] Acute URI Social History Tobacco Use Types [...] documented as of this encounter Care Teams Cold Strip Roller Relationship Specialty Start Date End Date Tabitha Gerard MD [address] [place] [address] PCP - General Family Medicine 09/21/18 Ismael Stout MD [address] [place] [address] Cardiology 09/07/24 Milagro Humphrey MD [address] [place] [address] Hematology and Oncology 09/09/24 RUDI Alberto [facility] 09/27/24 documented as of this encounter
--- OUTSIDE RECORDS SUMMARY | 2024-11-30 17:17 | XMS_ITS | Encounter Summary ---
Author Organization [employer] Address [address] [facility] 7t [place] [address] Care Team Providers Care Custodial Foreman Name Role Phone Tabitha Gerard MD Primary Care Provider [phone]- [phone] Ismael Stout MD Unavailable [phone] Milagro Humphrey MD Unavailable [phone] Reason for Visit * Reason Comments Med Refill Encounter Details Date Type Department Care Team (Late st Contact Info) Description 07/22/2024 Refill [facility] MEDICINE [address] [place] [address] Tabitha Gerard MD [address] [place] [address] Acute URI Social History Tobacco Use Types [...] documented as of this encounter Care Teams Custodial Foreman Relationship Specialty Start Date End Date Tabitha Gerard MD [address] [place] [address] PCP - General Family Medicine 09/21/18 Ismael Stout MD [address] [place] [address] Cardiology 09/07/24 Milagro Humphrey MD [address] [place] [address] Hematology and Oncology 09/09/24 RUDI Alberto [facility] 09/27/24 documented as of this encounter
--- OUTSIDE RECORDS SUMMARY | 2024-11-30 17:17 | XMS_ITS | Encounter Summary ---
Author Organization [employer] [facility] Address [address] [facility] 7t [place] [address] Care Team Providers Care Commission Agent Livestock Name Role Phone Tabitha Gerard MD Primary Care Provider [phone]- [phone] Ismael Stout MD Unavailable [phone] Milagro Humphrey MD Unavailable [phone] Reason for Visit * Reason Comments Med Refill Encounter Details Date Type Department Care Team ([facility] st Contact Info) Description 11/26/2023 Refill [facility] MEDICINE [address] [place] [address] Tabitha Gerard MD [address] [place] [address] Social History Tobacco Use Types Packs/Day Years [...] on filedocumented in this encounter Care Teams Commission Agent Livestock Relationship Specialty Start Date End Date Tabitha Gerard MD [address] [place] [address] PCP - General Family Medicine 09/21/18 Ismael Stout MD [address] [place] [address] Cardiology 09/07/24 Milagro Humphrey MD [address] [place] [address] Hematology and Oncology 09/09/24 RUDI Alberto [facility] 09/27/24 documented as of this encounter
--- OUTSIDE RECORDS SUMMARY | 2024-11-30 17:17 | XMS_ITS | Encounter Summary ---
Author Organization [employer] Address [address] [facility] 7t [place] [address] Care Team Providers Care Medical Front Desk Specialist Name Role Phone Tabitha Gerard MD Primary Care Provider [phone]- [phone] Ismael Stout MD Unavailable [phone] Milagro Humphrey MD Unavailable [phone] Reason for Visit * Reason Comments Med Change Request Encounter Details Date Type Department Care Team ([facility] st Contact Info) Description 11/03/2024 Refill [facility] MEDICINE [address] [place] [address] Tabitha Gerard MD [address] [place], [place] [phone] Acute URI Social History Tobacco Use Types [...] documented as of this encounter Care Teams Medical Front Desk Specialist Relationship Specialty Start Date End Date Tabitha Gerard MD [address] [place] [address] PCP - General Family Medicine 09/21/18 Ismael Stout MD [address] [place] [address] Cardiology 09/07/24 Milagro Humphrey MD [address] [place] [address] Hematology and Oncology 09/09/24 RUDI Alberto [facility] 09/27/24 documented as of this encounter
--- OUTSIDE RECORDS SUMMARY | 2024-11-30 17:17 | XMS_ITS | Encounter Summary ---
Author Organization [employer] Address [address] [facility] 7t [place] [address] Care Team Providers Care Wallpaper Inspector Name Role Phone Tabitha Gerard MD Primary Care Provider [phone]- [phone] Ismael Stout MD Unavailable [phone] Milagro Humphrey MD Unavailable [phone] Encounter Details Date Type Department Care Team (Late st Contact Info) Description 11/16/2024 2:40 PM EST Office Visit [facility] [address] [place], [place] [phone] Tabitha Gerard MD [address] [place], [place] [phone] Rash (Primary Dx); Paroxysmal atrial fibrillation (CMS/HCC); [...] complaint on file.. Pt reports was in [place] for 1 week and had bites on [...] a month. 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 . -MRI done [...] -Completed adjuvant radiation therapy with Dr. Zamudio [facility] between October to November 2021. [...] a month. 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 . -MRI done [...] -Completed adjuvant radiation therapy with Dr. Zamudio [facility] between October to November 2021. [...] documented as of this encounter Care Teams Wallpaper Inspector Relationship Specialty Start Date End Date Tabitha Gerard MD [address] [place] [address] PCP - General Family Medicine 09/21/18 Ismael Stout MD [address] [place] [address] Cardiology 09/07/24 Milagro Humphrey MD [address] [place] [address] Hematology and Oncology 09/09/24 [facility] 09/27/24 documented as of this encounter
--- OUTSIDE RECORDS SUMMARY | 2024-11-30 17:17 | XMS_ITS | Encounter Summary ---
Author Organization [employer] Address [address] [facility] 7t [place] [address] Care Team Providers Care Title Officer Name Role Phone Tabitha Gerard MD Primary Care Provider [phone]- [phone] Ismael Stout MD Unavailable [phone] Milagro Humphrey MD Unavailable [phone] Reason for Visit * Reason Comments Pre-visit Planning SDOH Screening negat [place] and Tobacco screening negative Encounter Details Date Type Department Care Team (Late st Contact Info) Description 11/18/2024 Patient Outreach [facility] MEDICINE [address] [place], [place] [phone] Tabitha Gerard MD [address] [place], [place] [phone] Pre-visit Planning (SDOH Screening negative and Tobacco [...] documented as of this encounter Care Teams Title Officer Relationship Specialty Start Date End Date Tabitha Gerard MD [address] [place] [address] PCP - General Family Medicine 09/21/18 Ismael Stout MD [address] [place] [address] Cardiology 09/07/24 Milagro Humphrey MD [address] [place] [address] Hematology and Oncology 09/09/24 [facility]to [facility] 09/27/24 documented as of this encounter
--- OUTSIDE RECORDS SUMMARY | 2024-11-30 17:17 | XMS_ITS | Encounter Summary ---
Author Organization [employer] Address [address] [facility] 7t [place] [address] Care Team Providers Care Forming Fixer Name Role Phone Tabitha Gerard MD Primary Care Provider [phone]- [phone] Ismael Stout MD Unavailable [phone] Milagro Humphrey MD Unavailable [phone] Encounter Details Date Type Department Care Team (Latest Contact Info) Description 11/30/2024 Travel Social History Tobacco Use Types Packs/Day Years [...] documented as of this encounter Care Teams Forming Fixer Relationship Specialty Start Date End Date Tabitha Gerard MD [address] [place] [address] PCP - General Family Medicine 09/21/18 Ismael Stout MD [address] [place] [address] Cardiology 09/07/24 Milagro Humphrey MD [address] [place] [address] Hematology and Oncology 09/09/24 [place] [facility] 09/27/24 documented as of this encounter
--- OUTSIDE RECORDS SUMMARY | 2024-11-30 17:17 | XMS_ITS | Clinical Summary ---
Author Organization [facility] Address [address] [place] [address] [address] [place] [address] Care Team Providers Care Supervisor Fabrication Name Role Phone Tabitha Gerard MD Primary Care Provider [phone] Ismael Stout MD Unavailable [phone] Milagro Humphrey MD Unavailable [phone] Allergies Active Allergy Reactions Criticality Noted Date Comments Penicillin G 01/07/2018 Medications Blood Glucose Monitoring Suppl (ONE TOUCH ULTRA 2) w/Device kitIndications:Typ e 2 diabetes mellitus with hyperosmolarity without coma, without long-term current use of insulin ([facility]) USE DIRECTED 1 kit 023 Active Multiple [...] EVERY DAY 90 tablet 3 024 Active sennosides (Senna-Time) 8.6 MG [...] day. Take with or without food. Active omeprazole (PriLOSEC) [address] capsuleIndications :Gastroesophageal reflux disease, unspecified whether esophagitis present TAKE 1 CAPSULE BY MOUTH BEFORE A MEAL 90 capsule 3 025 Active gabapentin (Neurontin) 300 MG capsuleIndications :Pain Take 1 capsule (300 mg) by mouth 3 times daily. 90 capsule 4 025 Active glucose blood (OneTouch Ultra) test strip insert 1 by into machine route every day 022 2024 Discontinued(M ed list cleanup (will not trigger notification to Pharmacy)) Lancets (onetouch ultrasoft) lancets 1 each by Other route [...] Pharmacy)) letrozole (Femara) 2.5 MG chemo tablet 022 2024 Discontinued carvedilol (Coreg) 6.25 MG tablet TOME VINICIUS TABLETA DOS VECES AL D A CON ALIMENTO FOR 30 DAYS 023 2024 Discontinued(M ed list cleanup (will not trigger notification to Pharmacy)) Bisacodyl EC 5 MG EC tablet TAKE 2 TABS AT NOON THE DAY BEFORE YOUR COLONOSCOPY 023 2024 Discontinued gabapentin (Neurontin) 300 MG capsuleIndications :Pain TOME VINICIUS CAPSULA WANG VECES AL JOSE DE JESUS 90 capsule 4 024 2024 Discontinued(R eorder (will not trigger notification to Pharmacy)) omeprazole (PriLOSEC) [address] capsuleIndications :Gastroesophageal reflux disease, unspecified whether esophagitis present TAKE 1 CAPSULE BY MOUTH BEFORE A MEAL 90 capsule 3 024 2024 Discontinued(R eorder (will not trigger notification to Pharmacy)) atorvastatin (Lipitor) 80 MG tablet Take 1 tablet by mouth Once per day. 024 2024 Discontinued(M ed list cleanup (will not trigger notification to Pharmacy)) GaviLAX 17 GM/SCOOP powder Take 17 g by mouth 1 (one) time. 024 2024 Discontinued(M ed list cleanup (will [...] migh t be different from the original. [facility] [employer]: [place], member services number [phone], provider services line, , option 4 [place] Agency: [facility] [employer] [facility] Problem Noted Date Diagnosed Date Exercise counseling 11/30/2024 Assessment & Plan (11/30/2024 2:13 PM EDT): Exercise Recommendations: At least 150 minutes of moderate-intensity physical activity per week, or an equivalent combination of moderate- and vigorous-intensity activity Dietary counseling 11/30/2024 Assessment & Plan (11/30/2024 2:13 PM EDT): Dietary Recommendations: Fruits, vegetables, whole grains, protein foods, and fat-free or low-fat dairy products are healthy choices. Eat different types of protein foods in your diet. This can include seafood, lean meats, poultry, beans, peas, lentils, nuts, seeds, soy products, and eggs. Limit foods and beverages higher in added sugars, saturated fat, and sodium. Pain 11/30/2024 Overview (11/30/2024): -refilled gabapentin (Neurontin) 300 MG 11/30/24 Assessment & Plan (11/30/2024 2:33 PM EDT): -refilled gabapentin (Neurontin) 300 MG 11/30/24 Rash 11/16/2024 Assessment & Plan (11/16/2024 2:56 PM EST): -consistent with allergic reaction -trial of clobetasol oint 11/16/24 Overweight 05/25/2024 Overview (11/30/2024): Discussed weight, diet, exercise with patient in relation to health conditions. Used motivational interviewing to illicit change talk and established initial goals with patient. Assessment & Plan (11/30/2024 2:13 PM EDT): Discussed weight, diet, exercise with patient in relation to health conditions. Used motivational interviewing to illicit change talk and established initial goals with patient. Osteopenia of multiple sites 02/24/2024 Overview (09/09/2024): [...] and symptoms discussed -pt has apt w stock preparation supervisor for f up in 12/2023 -request MA today -Livier Vargas to try to obtain discharge records ,images and labs [facility] Anticoagulated 09/09/2023 Overview (09/09/2023): On apixaban for [...] which would be considered higher bleeding risk. Other specified health status 03/16/2023 Overview (05/25/2024): -next physical exam due after 05/25/25 -eye care facilitated by [facility] optho, seen 04/23/23. -dental home is [facility], encouraged to make apt 03/16/2023 -health care proxy filed 12/09/2023 Assessment & Plan (05/25/2024 3:51 PM EDT): -next physical exam due after 05/25/25 -eye care facilitated by [facility] optho, seen 04/23/23. -dental home is [facility], encouraged to make apt 03/16/2023 -health care proxy filed 12/09/2023 Assessment & Plan (12/09/2023 2:38 PM EDT): -next physical exam due after March 2024 -eye care facilitated by [facility] optgopal, seen 04/23/23. -dental home is [facility], encouraged to make apt 03/16/2023 -health care proxy filed 12/09/2023 Assessment & Plan (03/16/2023 10:54 AM EDT): -next physical exam due after 03/16/2024 -eye care facilitated by [facility] optho, referral placed 03/16/2023 -dental home is [facility], encouraged to make apt 03/16/2023 Colon cancer screening 09/24/2022 Overview (09/09/2023): -colonoscopy with Tubenjaminb Tricia 08/11/23polyp was hyperplastic. Assessment & Plan (09/09/2023 12:21 PM EST): -colonoscopy with Tuyyab Clarke 08/11/23polyp was hyperplastic. Assessment & Plan (09/24/2022 10:29 AM EST): Continued to decline colonoscopy but agrees to collogued. Referral placed 09/24/2021 At moderate risk for fall 09/24/2022 Overview (09/09/2023): -04/2023 we wrote multiple DME requested by [facility]. Assessment & Plan (09/09/2023 12:21 PM EST): -04/2023 we wrote multiple DME requested by [facility]. Acquired trigger finger of both middle fingers 0 09/24/2022 Assessment & Plan (09/24/2022 10:30 AM EST): She declines treatment. Advised to call if she wants referral. Dyslipidemia 09/03/2022 Overview (11/30/2024): Lab Results Component Value Date CHOLESTEROL 245 (H) 09/24/2022 LDLCHOL 137 (H) 09/24/2022 LDLCHOL 69 08/23/2021 LDLCHOL 90 02/01/2021 TRIG 146 12/16/2023 TRIG 291 (H) 09/24/2022 HDLCHOL 63 09/24/2022 [...] atorvastatin 40mg daily Gastroesophageal reflux disease 09/03/2022 Overview (11/30/2024): -refilled omeprazole (PriLOSEC) [address] 11/30/24 Assessment & Plan (11/30/2024 2:29 PM EDT): -refilled omeprazole (PriLOSEC) [address] 11/30/24 Atrial fibrillation 10/31/2021 Overview (09/07/2024): Diagnosed 08/23/2021 [...] BB -has apt to f up w stock preparation supervisor in 12/2023 Assessment & Plan (09/09/2023 12:19 [...] modifications -Continue current medications Assessment & Plan (11/30/2024 2:29 PM EDT): -Blood pressure is at goal [...] [facility] [address] [facility]. -Patient PAP 08/09/18 with NIL HPV- -Colposcopy with [facility] Dr. Terrell 11/2020. -Seen on 12/06/2021 by Orin Pugh at [facility]. -PAP NILM, HPV negative 12/06/21 -seen by Orin Pugh CN 04/08/24, follow up 1 year Assessment & Plan (12/09/2023 2:51 PM EDT): - PAP 02/2017 ASCUS HPV+ -Colposcopy 05/2017 with CHLOE [address] Terrell [facility] -LEEP 07/2017 with CHLOE 1 result. -Patient PAP 08/09/18 with NIL HPV- -Colposcopy with [facility] Dr. Terrell 11/2020. -Seen on 12/06/2021 by Orin Pugh at [facility]. -PAP NILM, HPV negative 12/06/21 -reports has follow up 12/2023 Assessment & Plan (09/07/2023 9:58 AM EST): - PAP 02/2017 ASCUS HPV+ -Colposcopy 05/2017 with CHLOE [address] Terrell [facility] -LEEP 07/2017 with CHLOE 1 result. -Patient PAP 08/09/18 with NIL HPV- -Colposcopy with [facility] Dr. Terrell 11/2020. -Seen on 12/06/2021 by Orin Pugh at [facility]. -PAP NILM, HPV negative 12/06/21 Assessment & Plan (09/15/2022 12:17 PM EST): - PAP 02/2017 ASCUS HPV+ -Colposcopy 05/2017 with CHLOE [address] Terrell [facility] -LEEP 07/2017 with CHLOE 1 result. -Patient PAP 08/09/18 with NIL HPV- -Colposcopy with [facility] Dr. Terrell 11/2020. -Seen on 12/06/2021 by Orin Pugh at [facility]. -PAP NILM, HPV negative 12/06/21. Infiltrating ductal carcinoma of left female spencer ast 10/31/2021 Overview (11/30/2024): Left breast invasive ductal carcinoma diagnosed 05/2021 -She presented on 03/06/2021 with a rash on her left breast that had been present for a month. Biopsy 03/2021 revealed invasive adenocarcinoma, ER/PA positive HER 2 negative. . -MRI done [...] -Completed adjuvant radiation therapy with Dr. Zamudio [facility] between October to November 2021. -Genetic testing for inherited breat/ovarian cancer syndrome discussed with oncology declined -She is a candidate for adjuvant hormonal therapy with aromatase inhibitor for 5 years. She started aromatase inhibitor, letrozole 2.5 mg once daily from 12/13/2021. Five years will be 12/13/2026. -Seen by Dr. Mathews 11/25/23 -Saw Oncology on -Mammogram 11/17/23 BIRADS 1 negative -done at [facility] 11/25/24, will request records. Assessment & Plan (11/30/2024 2:23 PM EDT): Left breast invasive ductal carcinoma diagnosed 05/2021 -She presented on 03/06/2021 with a rash on her left breast that had been present for a month. Biopsy 03/2021 revealed invasive adenocarcinoma, ER/PA positive HER 2 negative. . -MRI done [...] -Completed adjuvant radiation therapy with Dr. Zamudio [facility] between October to November 2021. -Genetic testing for inherited breat/ovarian cancer syndrome discussed with oncology declined -She is a candidate for adjuvant hormonal therapy with aromatase inhibitor for 5 years. She started aromatase inhibitor, letrozole 2.5 mg once daily from 12/13/2021. Five years will be 12/13/2026. -Seen by Dr. Mathews 11/25/23 -Saw Oncology on -Mammogram 11/17/23 BIRADS 1 negative -done at [facility] 11/25/24, will request records. Assessment & Plan (11/16/2024 2:55 PM EST): Left breast invasive ductal carcinoma diagnosed 05/2021 -She presented on 03/06/2021 with a rash on her left breast that had been present for a month. Biopsy 03/2021 revealed invasive adenocarcinoma, ER/PA positive HER 2 negative. . -MRI done [...] -Completed adjuvant radiation therapy with Dr. Zamudio [facility] between October to November 2021. [...] a month. Biopsy 03/2021 revealed invasive adenocarcinoma, ER/PA positive HER 2 negative. . -MRI done [...] 2021. She is on Nulasta. -Followed by [facility] Radiation Oncology with Dr. Zamudio and currently [...] a month. Biopsy 03/2021 revealed invasive adenocarcinoma, ER/PA positive HER 2 negative. . -MRI done [...] 2021. She is on Nulasta. -Followed by [facility] Radiation Oncology with Dr. Zamudio and currently [...] a month. Biopsy 03/2021 revealed invasive adenocarcinoma, ER/PA positive HER 2 negative. . -MRI done [...] 2021. She is on Nulasta. -Followed by [facility] Radiation Oncology with Dr. Zamudio and currently radiation . she completed chemotherapy. -She is a candidate for adjuvant hormonal therapy with aromatase inhibitor for 5 years -Genetic testing for inherited breat/ovarian cancer syndrome discussed with oncology, she defers at this time. -Mammo 10/15/2021 BIRADS 1 negative. -She reports mammo is scheduled for 10/17/2022 Low back pain 10/31/2021 Type 2 diabetes mellitus 09/09/2012 Overview (11/30/2024): -Controlled on diet alone -Metformin discontinued 11/2021 due to A1c at goal Diabetes is controlled. Lab Results Component Value Date HGBA1C 7.4 (A) 05/25/2024 HGBA1C 6.5 (H) 12/16/2023 HGBA1C 6.8 (A) 12/09/2023 Lab Results Component Value Date MICROALBUR 12.0 12/16/2023 CREATININE 0.61 12/16/2023 -Changes: none -Sunny/Arb: lisinopril 10mg daily -Statin therapy: atorvastatin 40mg daily -Diabetic eye exam: referral to [facility] placed 03/16/2023 -Diabetic foot exam: done at [facility] 11/28/24, rechecked today 11/30/24 -Continue lifestyle modifications -Continue medications Assessment & Plan (11/30/2024 2:34 PM EDT): -Controlled on diet alone -Metformin discontinued 11/2021 due to A1c at goal Diabetes is controlled. Lab Results Component Value Date HGBA1C 7.4 (A) 05/25/2024 HGBA1C 6.5 (H) 12/16/2023 HGBA1C 6.8 (A) 12/09/2023 Lab Results Component Value Date MICROALBUR 12.0 12/16/2023 CREATININE 0.61 12/16/2023 -Changes: none -Sunny/Arb: lisinopril 10mg daily -Statin therapy: atorvastatin 40mg daily -Diabetic eye exam: referral to [facility] placed 03/16/2023 -Diabetic foot exam: done at [facility] 11/28/24, rechecked today 11/30/24 -Continue lifestyle modifications -Continue medications Assessment & [...] 40mg daily -Diabetic eye exam: referral to [facility] placed 03/16/2023 -Diabetic foot exam: 03/16/2023 [...] 40mg daily -Diabetic eye exam: referral to [facility] placed 03/16/2023 -Diabetic foot exam: 03/16/2023 [...] 40mg daily -Diabetic eye exam: referral to [facility] placed 03/16/2023 -Diabetic foot exam: 03/16/2023 [...] 40mg daily -Diabetic eye exam: referral to [facility] placed 03/16/2023 -Diabetic foot exam: 03/16/2023 [...] Encounters Date Type Department Care Team Description 11/30/2024 2:00 PM EDT Office Visit [facility] [address] [place] [phone] Tabitha Gerard MD Type 2 diabetes mellitus with hyperosmolarity without coma, without long-term current use of insulin ([facility]) (Primary Dx); Benign hypertension; Overweight; Exercise counseling; Dietary counseling; Gastroesophageal reflux disease, unspecified whether esophagitis present; Pain; Infiltrating ductal carcinoma of left female breast (CMS/HCC); Encounter for immunization 11/30/2024 Travel 11/29/2024 Telephone [facility] [address] [place] [phone] Tabitha Gerard MD chartprep 11/18/2024 Patient Outreach [address] [id number] Tabitha Gerard MD Pre-visit Planning (SDOH Screening negative and Tobacco screening negative) 11/16/2024 2:40 PM EST Office Visit [facility] [address] [place] [phone] Tabitha Gerard MD Rash (Primary Dx); Paroxysmal atrial fibrillation (CMS/HCC); Infiltrating ductal carcinoma of left female breast ([facility]) 11/09/2024 Refill [facility] [address] [place] [phone] Tabitha Gerard MD Pain; Paroxysmal atrial fibrillation (CMS/HCC) 11/03/2024 Refill [facility] [address] [place] [phone] Tabitha Gerard MD Acute URI 11/01/2024 Orders Only [address] [address] Tabitha Gerard MD Benign hypertension (Primary Dx); Dyslipidemia 10/11/[address] [id number] Tabitha Gerard MD Paroxysmal atrial fibrillation ([facility]) 09/29/2024 Telephone [facility] [address] [place], [place] [phone] Chuck Cortez MA November recall from Last 3 Months Immunizations Name Administration Dates Next Due Hep B, adult 05/25/2024,12/09/2023,09/09/2023 Influenza High-dose Quadriva lent Preservative Free 07/10/2022 Influenza injectable quadriv alent IIV4 with preservative 07/14/2019,07/22/2017,08/21/2016,10/25 Influenza injectable quadriv alent preservative free 09/09/2023 Influenza, High Dose Seasona l, Preservative Free 08/05/2018 Influenza, IIV3, injectable 05/29/2014,1 ,06/27/2010,06/01,07/28/2006,08/05/2005,08/06/2004 ,07/08/2002 Influenza, Split (incl. jose fied surface antigen) 08/09/2013,09/09/2012 Influenza, seasonal, injecta ble, preservative free 11/30/2024 Moderna Covid-19 Vaccine 12+ 01/15/2022, 01/15/2022,01/24/2021,01/24,12/27/2020,12/27/2020 Moderna [...] Tobacco: Never Tobacco Cessation:Counseling Given: Not Answered Alcohol Use Standard Drinks/Week Comments Never 0 [...] (153 lb) 11/30/2024 2:11 PM EDT Height 162.6 cm (5' 4 ) 10/22/2023 2:53 PM EST Body Mass Index 26.26 10/22/2023 2:53 PM EST Plan of Treatment Health Maintenance Due Date Last Done Comments CT Colonography 1950 FIT DNA/Cologuard 1950 FIT 1950 FOBT 1950 Sigmoidoscopy 1950 Diabetes: Foot Exam 09/09/2024 11/30/2024, 11/30/2024, 11/30/2024, Additional history exists Mammogram 11/17/2024 11/17/2023, 09/22, 10/17/2022, Additional history exists Diabetes: Urine Protein Screening 12/15/2024 12/16/2023, 02/01/2021, 10/17/2019 Lipid Panel 12/15/2024 12/16/2023, 12/2022, 08/23/2021, Additional history exists Diabetes: Hemoglobin A1C 03/02/2025 025, 05/25/2024, 12/16/2023, Additional history exists Tobacco Screening 09/02/2025 09/02/2024 DTaP/Tdap/Td Vaccines (3 - Td or Tdap) 10/25/2025 10/25/2015, 08/31/2014, 07/13/2003 SDOH Screening 11/18/2025 11/18/2024 Alcohol/Substance Use Screening 11/30/2025 11/30/2024 COVID-19 Vaccine ( season) 2025 09/18/2023, 03/16/2023, 09/24/2022, Additional history exists Postponed from 05/22/2024 (Patient Refused) Depression Screening 11/30/2025 11/30/2024, 12/01/19 25 Eye Exam 08/26/2026 08/26/2024, 02/2024, 08/26/2024, Additional history exists Colonoscopy 08/11/2033 08/11/2023 Colorectal Cancer Screening 08/11/2033 Pneumococcal Vaccine: 50+ Years Completed 07/22/2017, 08/22/2016, 07/08/2002 Hepatitis C Screening Completed 09/24/2022, 023 Zoster Vaccines Completed 04/16/2023, 01/20, 08/31/2014 RSV Patients and Patients Aged 60 years or older Completed 01/01/2024 Hepatitis B Vaccines Completed 05/25/2024, 12/09/2023, 09/09/2023 Influenza Vaccine Completed 11/30/2024, , 07/10/2022, Additional history exists HIB Vaccines Aged Out No longer eligi [...] coma, without long-term current use of insulin ([facility]) POCT GLYCOSYLATED HEMOGLOBIN (HGB A1C) Routine 11/30/2024 2:45 PM EDT Type 2 diabetes mellitus with hyperosmolarity without coma, without long-term current use of insulin ([facility]) URINALYSIS, COMPLETE, WITH REFLEX TO CULTURE Routine 11/30/2024 2:41 PM EDT Dysuria ALBUMIN, RANDOM URINE W/CREATININE Routine 12/16/2023 12:03 PM EDT Type 2 diabetes mellitus with hyperosmolarity without coma, without long-term current use of insulin ([facility]) LIPID PANEL, STANDARD Routine 12/16/2023 12:03 PM EDT Type 2 diabetes mellitus with hyperosmolarity without coma, without long-term current use of insulin ([facility]) BI MAMMOGRAM DIAGNOSTIC TOMOSYNTHESIS BILATERAL Routine 11/17/2023 3:14 PM EST HM COLONOSCOPY Routine 08/11/2023 HEPATITIS C VIRAL RNA, QUANTITATIVE, REAL-TIME PCR Routine 09/24/2022 10:23 AM EST Benign hypertension from Last 3 Months or Most Recently Relevant to Health Maintenance Results * POCT glucose manually resulted (11/30/2024 2:46 PM EDT) Glucose Blood, POC 142 60 - 200 mg/dL QC Media Lot # [id number] Lot# Expiration Date Blood Capillary blood specimen / Unknown 11/30/2024 2:46 PM EDT Tabitha Gerard MD POINT OF CARE TEST ENTER/E DIT ORDERABLES Final Result * (ABNORMAL) POCT glycosylated hemoglobin (Hgb A1c) (11/30/2024 2:45 PM EDT) Hemoglobin A1C 7.0(A) 4.0 - 6.0 % QC Media Lot # [id number] Lot# Expiration Date Blood Capillary blood specimen / Unknown 11/30/2024 2:45 PM EDT us Tabitha Gerard MD POINT OF CARE TEST ENTER/E DIT ORDERABLES Final Result * (ABNORMAL) Urinalysis, Complete, with Reflex to Culture (11/30/2024 2:41 PM EDT) Color Urine Yellow [facility] Appearance Urine Turbid [facility] PH 5.0 5.0 - 9.0 [facility] Glucose Urine UA 100(A) Negative mg/dL [facility] Urine Blood Negative Negative [facility] Specific [place] - Urine 1.025 1.005 - 1.025 [facility] Urine Protein Negative Neg-Trace mg/dL [facility] Urine Ketones Trace Negative mg/dL [facility] Nitrite Urine Negative Negative [facility] Leukocyte Esterase Urine Small (1+)(A) Negative [facility] RBC Urine 0-2 0 - 2 /HPF [facility] Urine WBC 0-5 0 - 5 /HPF [facility] Urine Squamous Epithelial Cell 0-2 0 - 2 /HPF [facility] Urine Bacteria None Seen None Seen [facility] Hyaline Casts, Urine 0-2 0 - 2 /LPF [facility] Urine 11/30/2024 2:41 PM EDT 11/30/2024 4:19 PM EDT Narrative [facility] - 11/30/2024 4:40 PM EDT Urine, Clean Catch us Coreen Santana MD LAB URINE ORDERAB LES Final Result Performing Organization Address City/[facility]/ZIP Co de Phone Number [facility] [address] [place] [phone] * Albumin, Random Urine W/Creatinine (12/16/2023 12:03 PM EDT) Creatinine, Urine 78.31 mg/dL [facility] Microalbumin Urine 12.0 mg/L [facility] Microalbum Creatinine Ratio Ur 15.3 <30 ug/mg cr [facility] Comment:Albumin/Creatinine R atio Reference Ranges: Normal: < 30 ug/mg creatinine Microalbuminuria: 30 - 300 ug/mg creatinineClinical Albuminuria: > 300 ug/mg creatinine Urine 12/16/2023 12:0 3 PM EDT 12/16/2023 1:11 PM EDT us Tabitha Gerard MD LAB URINE ORDERABLES Final Result Performing Organization Address City/[facility]/ZIP Co de Phone Number [facility] [address] [place] [phone] * Lipid Panel, Standard (12/16/2023 12:03 PM EDT) Triglycerides 146 <150 mg/dL [facility] Comment:Desirable Triglyceri de: less than 150 mg/dLBorderline High Triglyceride 150-199 mg/dLHigh Triglyceride: 200-499 mg/dLVery High Triglyceride: greater than or equal to 5OO mg/dL Cholesterol 180 <200 mg/dL [facility] Comment:Desirable Cholestero l: less than 200 mg/dLBorderline High Cholesterol: 200-239 mg/dLHigh Cholesterol: greater than 239 mg/dL LDL Cholesterol Calculated 95 <100 mg/dL [facility] Comment:Desirable LDL: less than 100 mg/dLNear Optimal/Above Optimal LDL: 110- 129 mg/dLBorderline High LDL: 130-159 mg/dLHigh LDL: 160-189 mg/dLVery High LDL: greater than or equal to 190 mg/dL HDL Cholesterol 56 >40 mg/dL [facility] Comment:Desirable HDL: great er than 40 mg/dL Note: This HDL assay may give artificially low results in patients with liver disease. Blood Venous blood specimen / Unknown 12/16/2023 12:03 PM EDT 12/16/2023 1:24 PM EDT us Tabitha Gerard MD LAB BLOOD ORDERABLES Final Result [facility] [address] [place] [phone] * BI Mammogram Diagnostic Tomosynthesis Bilateral (11/17/2023 3:14 PM EST) Anatomical Region Laterality Modality Breast Bilateral Mammography 11/17/2023 3:14 PM EST Narrative 11/17/2023 3:59 PM EST ? [facility] ? [address] ?[place] [address] ? Mammography Report ? Signed ? Patient: Gonzales,Lacey ?MR#: [id number] ? : 1950 ?Acct:[id number] ? Age/Sex: 73 / F ?ADM Date: /27/24 ? Loc: HO.MAMMO ? Attending Dr: Tabitha Gerard MD ? Ordering Physician: Tabitha Gerard MD ?Results: 2B ?? enign Findings ? Date of Service: 11/17/23 ?Follow Up: 1 Year From Orig ?? inal Mammogram ? Procedure(s): MM tomosynthesis diagnostic BI ?? Accession Number(s): [id number] ? cc: Tabitha Gerard MD ? EXAMINATION: [...] signed by Austin Chisholm MD in [place]> ?11/17/23 1556 ? DD/ 1514 ? TD/TT: ? Tester Operator: ? Procedure Note Keysha, Image - 11/17/2023 [facility] [address] [place] [address] [place] [address] Mammography Report Signed Patient: Prosper Gonzales#: [id number] : 1Acct:[id number] Age/Sex: 73 / FADM Date: 11/17/23 Loc: HO.MAMMO Attending Dr: Tabitha Gerard MD Ordering Physician: Tabitha Gerard MDResults: 2B enign Findings Date of Service: 11/17/23Follow Up: 1 Year From [facility] Mammogram Procedure(s): MM tomosynthesis diagnostic BI Accession Number(s): [id number] cc: Tabitha Gerard MD EXAMINATION: MM DIAGNOSTIC [...] in OV> 11/17/23 1556 DD/ 1514 TD/TT: Tester Operator: Tabitha Gerard MD IMG BI PROCEDURES Final Re sult * Hm Colonoscopy (08/11/2023) Colonoscopy Normal Normal Comment:hyperplastic polyp w ith Dr. Clarke Historical Provider HEALTH MAINTENANCE Final Result * Hepatitis C Viral RNA, Quantitative, Real-Time PC (09/24/2022 10:23 AM EST) Pathologist [facility] HCV RNA, QN Real Time PCR <15 NOT DETECTED NOT DETECTED IU/mL [facility] [employer] HCV RNA QN Real Time PCR <1.18 NOT DETECTED NOT DETECTED Log IU/mL [facility] [employer] Comment: This test was performed using Real-Time Polymerase Chain Reaction. Reportable Range: 15 IU/mL to 100,000,000 IU/mL (1.18 Log IU/mL to 8.00 Log IU/mL). ?? The analytical performance characteristics of this assay have been determined by [employer]. The modifications have not been cleared or approved by the FDA. This assay has been validated pursuant to the CLIA regulations and is used for clinical purposes. ?? For more information on this test, go to: http://education.[employer]/faq/TJY59g6 (This link is being provided for informational/ educational purposes only.) 09/24/2022 10:2 3 AM EST 09/24/2022 10:23 AM EST Narrative [facility] - 09/26/2022 2:30 PM EST FASTING:YES FASTING: YES Tabitha Gerard MD LAB BLOOD ORDERABLES Final Result [facility] [address], [place] [address] [facility] [employer] 200 [facility], ([address]) [place] [address] from Last 3 Months or Most Recently Relevant to Health Maintenance Insurance [facility] Advance Directives Documents on File Type Date Recorded Patient Yarn Tester Expl anation Advance Directives and Livin g Will 12/09/2023 Health Care Proxy Care Teams Supervisor Fabrication Relationship Specialty Start Date End Date [place], MD Tabitha [address] [place] [address] PCP - General Family Medicine 09/21/18 Ismael Stout MD [address] [place] [address] Cardiology 09/07/24 Milagro Humphrey MD [address] [place] [address] Hematology and Oncology 09/09/24 [place] [facility] Orthopedics 09/27/24
--- OUTSIDE RECORDS SUMMARY | 2024-11-30 17:17 | XMS_ITS | Encounter Summary ---
Author Organization [employer] Address 75 [facility] 7t [place] [address] Care Team Providers Care Oil Lease Buyer Name Role Phone Tabitha Gerard MD Primary Care Provider [phone] Ismael Stout MD Unavailable [phone] Milagro Humphrey MD Unavailable [phone] Encounter Details Date Type Department Care Team (Late st Contact Info) Description 11/01/2024 Orders Only [facility] [address] [place], [place] [phone] Tabitha Gerard MD [address] [place], [place] [phone] Benign hypertension (Primary Dx); Dyslipidemia Social History [...] documented as of this encounter Care Teams Oil Lease Buyer Relationship Specialty Start Date End Date Tabitha Gerard MD [address] [place] [address] PCP - General Family Medicine 09/21/18 Ismael Stout MD [address] [place] [address] Cardiology 09/07/24 Milagro Humphrey MD [address] [place] [address] Hematology and Oncology 09/09/24 RUDI Alberto [facility] Orthopedics 09/27/24 documented as of this encounter
== END 2024-11-30 14:41 | disposition home or self-care (01) ==
LOC: HO.HHCL 14:40
PROVIDERS: Visit Provider Student in an Organized Health Care Education/Training Program
DX: R30.0 Dysuria (principal)
CPT/HCPCS: 81001; 87086

== ENCOUNTER 2024-12-01 13:12 | Outpatient (AMB) | payer OTHER, SELFPAY ==
--- NOTE | 2024-12-01 13:13 | MHC.OFFVIS ---
Vital Signs 12/01/24 13:22 Height 5 ft 4 in Weight 152 lb BMI 26.1 BP 123/61 Blood Pressure Location Rt brachial Position Sitting Pulse 64 Intake Visit Reasons: one year breast exam Intake Note: This patient presents for yearly breast examination assessment. Pt c/o; reports no breast complaints at this time. Imagin11/17/23- MM Diag 03/23/24- Bone density Industry Segment Specialist Required: Yes Industry Segment Specialist Language: Tool Supervisor Services: Industry Segment Specialist Present ([facility]) Information Interpreted: non-clinical & clinical Accompanied by: Self / Same As Patient Allergies penicillin V Allergy (Intermediate, Verified 12/01/24 13:22) Rash HPI HPI one year breast exam: Details: She is here for surveillance for her history of Leftbreast cancer. She had undergone lumpectomy, with axillary exploration in 2020. She had a T4 N0 invasive ductal cancer at that time. She denies significant complaints at this time. She did have a mammogram last week but this has not been read yet. [facility] Medical History CHLOE II (cervical intraepithelial neoplasia II) History of left breast cancer Atrial fibrillation COVID-19 vaccine series completed High cholesterol Diabetes Hypertension Invasive ductal carcinoma of left breast Nipple lesion Surgical History Hx laparoscopic cholecystectomy (~09/2023) H/O LEEP History of lumpectomy of left breast Hx of left breast biopsy Family History Maternal Aunt Pancreatic cancer Maternal Aunt No problems noted. Maternal Aunt No problems noted. Family/Other Metastatic breast cancer Social History Household Members: None Housing: Apartment Are you a primary rn patient care to a significant other at home: No Do you presently have visiting nurse or other home services: No Alcohol intake: former Patient Tobacco Use Status: Never used Tobacco service: No Current occupational status: unemployed Female Reproductive History Menstrual Age of Menarche: 16 Review of Systems Const Denies chills and Denies fever(s) Card Denies chest pain, Denies dyspnea and Denies dyspnea on exertion Resp Denies cough, Denies dyspnea and Denies dyspnea on exertion GI Denies hematochezia and Denies change in bowel habits Denies hematuria Musc Denies back pain and Denies limited range of motion Neuro Denies focal weakness and Denies convulsions Psych Denies depression and Denies mood swings Physical Exam Vital Signs: Last Vital Signs Pulse 64 12/01/24 13:22 BP 123/61 12/01/24 13:22 BMI result Body Mass Index 26.1 Const General: comfortable and no acute distress Orientation/consciousness: patient oriented x3 Neck Neck: Yes no lymphadenopathy Chest Other: no palpable breast masses, no skin changes, nipple areolar complex surgically absent in the left breast, no axillary lymphadenopathy Resp Auscultation: clear to auscultation bilaterally Cardio Rhythm: regular rhythm GI Palpation (GI): Soft to palpation, nontender and no guarding Neuro General: patient oriented x3 Assessment & Plan Assessment & Plan (1) History of left breast cancer: Comment: Code(s): Z85.3 - Personal history of malignant neoplasm of breast Category: Medical Plan: She continues to do well. Current exam does not suggest any palpable mass or any axillary lymph nodes Her mammogram from last week has not been officially read so I told her that if there is any concerning finding, I will give her a call I reminded her to continue with her regular screening mammograms. I will see her in the office next year. She is also to continue to follow up with Dr. Humphrey of Oncology. She finishes hormonal therapy next year.I Coding Level of Care Code Est Pt Level 3 (51194) Complex EM visit Add On G2211 Diagnoses History of left breast cancer Z85.3
[2024-12-01 13:22] VITALS: BP 123/61; PULSE 64; BMI 26.1
--- OUTSIDE RECORDS SUMMARY | 2024-12-01 16:43 | XMS_ITS | Clinical Summary ---
Author Organization 175 [facility] Address [address] [place] [address] Phone Care Team Providers Care Floating Operator Name Role Phone Tabitha Gerard MD Primary Care Provider [phone]- [phone] Allergies No known active allergies Medications ammonium lactate (LAC-HYDRIN) 12 % lotion Apply to soles of feet daily. At night wear socks to bed Active Encounters Date Type Department Care Team Description 11/28/2024 1:30 PM EDT Office Visit Orthopedic Surgery [facility] [address] [phone] Jignesh Mckeon DPM Controlled type 2 diabetes with neuropathy (CMS/HCC) (Primary Dx); Arthritis of both feet; Hammertoes of both feet; Dermatophytosis, nail 09/26/2024 2:45 PM EST Office Visit Orthopedic [facility] [address] [phone] Jignesh Mckeon DPM Controlled type 2 diabetes [...] PM EDT Office Visit Orthopedic Surgery - [place] [address] [phone] Jignesh Mckeon, NICOLE [address] [address] Health Maintenance Due Date Last Done Comments [...] patient's age to complete this topic Insurance [facility] MEDICARE Member Subscriber Plan / Payer (Ef fective 2022-Present) Name:Lacey Gonzales Relation to Subscriber:Self Name:Lacey Gonzales Payer ID:[id number] Group ID:[id number] Type:Not on file Address: [place] [facility] [place] [address] Care Teams Floating Operator Relationship Specialty Start Date End Date [place], MD Tabitha [address] [place] [phone] PCP - General 02/09/24
--- OUTSIDE RECORDS SUMMARY | 2024-12-01 16:43 | XMS_ITS | Encounter Summary ---
Author Organization [facility] Address [address] [place] [address] Care Team Providers Care Signs Cleaner Name Role Phone Taibtha Gerard MD Primary Care Provider [phone] Reason for Visit * Reason Comments DM Foot Care Controlled type 2 di abetes with neuropathy (CMS/HCC)Arthritis of both feetHammertoes of both feetDermatophytosis, nail Encounter Details Date Type Department Care Team (Late st Contact Info) Description 11/28/2024 1:30 PM EDT Office Visit Orthopedic Surgery - [place] [address] [phone] Jignesh Mckeon DPM [address] [address] Controlled type 2 diabetes with neuropathy (CMS/HCC) [...] Sharp/dull sensation intact, protective sensation diminished on [place]. Multiple peripheral neuropathies bilaterally ORTHOPEDIC: Good muscle [...] PM EDT Office Visit Orthopedic Surgery - [place] [address] [phone] Jignesh Mckeon DPM 175 [facility] 250 [place] [address] documented as of this encounter Visit Diagnoses Diagnosis Controlled type 2 diabetes with neuropathy ([facility])- Primary Type II or unspecified type diabetes mellitus with neurological manifestations, not stated as uncontrolled Arthritis of both feet Hammertoes of both feet Dermatophytosis, nail Dermatophytosis of nail documented in this encounter Care Teams Signs Cleaner Relationship Specialty Start Date End Date Tabitha Gerard MD [address] [place] [phone] PCP - General 02/09/24 documented as of this encounter
== END 2024-12-01 13:43 | disposition home or self-care (01) ==
LOC: HO.HGS 13:12
PROVIDERS: PCP Family Medicine; Visit Provider Surgery
DX: Z85.3 Personal history of malignant neoplasm of breast (principal)
CPT/HCPCS: 99213; G2211

== ENCOUNTER → 2024-12-01 13:12 | Outpatient (BNVA) | payer OTHER, SELFPAY | PROVIDERS: PCP Family Medicine; Visit Provider Surgery | DX: Z12.39 Encounter for other screening for malignant neoplasm of breast (principal); Z85.3 Personal history of malignant neoplasm of breast | CPT/HCPCS: 99212 ==

== ENCOUNTER 2025-04-13 14:35 | Outpatient (REF) | payer OTHER, SELFPAY ==
--- OUTSIDE RECORDS SUMMARY | 2025-04-13 14:47 | XMS_ITS | Encounter Summary ---
Author Organization [employer] Address 75 [facility] 7t [place] [address] Care Team Providers Care Optometric Assistant Name Role Phone Tabitha Gerard MD Primary Care Provider [phone] Ismael Stout MD Unavailable [phone] Milagro Humphrey MD Unavailable [phone] Reason for Visit * Reason Onset Date Comments Results 07/15/2023 Encounter Details Date Type Department Care Team ([facility] Contact Info) Description 07/15/2023 Telephone [facility] MEDICINE [address] [place] [address] Tabitha Gerard MD [address] [place], [place] [phone] Results Social History Tobacco Use Types Packs/Day [...] on filedocumented in this encounter Care Teams Optometric Assistant Relationship Specialty Start Date End Date Tabitha Gerard MD [address] [place] [address] PCP - General Family Medicine 09/21/18 Ismael Stout MD [address] [place] [address] Cardiology 09/07/24 Milagro Humphrey MD [address] [place] [address] Hematology and Oncology 09/09/24 RUDI Alberto [place] [facility] 09/27/24 documented as of this encounter
--- OUTSIDE RECORDS SUMMARY | 2025-04-13 14:48 | XMS_ITS | Data Portability ---
Author Organization [facility] Address [address] [place] [phone] Care Team Providers Care Skiver Welt End Name Role Phone HIM BASSEM OTHER Assessment Encounter Date Assessment Date Assessment LastModified by Organization Details LastModified Time 05/30/2024 05/30/2024 service called for vulvar and vaginal itching found 73 arash with hx T2DM c/o 1-2 wk vaginal and vulvar itching c/o candiasis has been unable to pickup topical cream from [facility] pharmacy requesting anti-fungal topical cream sent to [...] e 1 % vaginal cream 2023 024 [facility][id number], [address] [place], [address], 18:46:47 Patient TargetsNo targets recorded. Patient InstructionsNo instructions recorded. Reason for Referral None Reported. Medical Equipment None Reported. Allergies Allergen ID Allergen Name Allergen Category Reaction Reaction Severity Criticality Documentation Date Start Date Code Code System Note Provider Name and Address Organization Details Recorded Time 9241 Product containin g penicilli n (product) medicatio n Not available Not available Not available 07/19/2024 28110 8001 SNOMED Not Available [facility] - production [...] in Arterial blood by Pulse oximetry Systolic And Diastolic Provider Name and Address Organization Details Last Updated DateTime 4 74 /min 16 /min 97.9 [degF] 98 % 98 % 110/70 mm[Hg] Not Available [facility] - production 4 [...] SNOMED-CT Code Diagnosis ICD10 Code Diagnosis Note 97750 Magali Doyle MD Main - [facility] [address] [place] [phone] 05/30/2024 18:41:29 06/01/2024 13:06:18 Candidal vulvovaginitis [id number] B37.31 Health Concerns Section Related Observation LastModified by Organization Detai ls LastModified Time None Recorded Concern Status LastModified by Organization Details LastModified Time None Recorded Advance Directives Directive None Recorded Payers Insurance Date Sequence Insurance Name Policy Number Policy Nieto Covered Member ID Nieto Member ID Guarantor Name 06/01/2024 1 [facility] - DOS ON OR AFTER 2022 - DUAL ELIGIBLE - SENIOR LIVING OPTIONS AND ONE CARE (MEDICARE REPLACEMENT/ADV ANTAGE - HMO) Lacey Christian [id number] Lacey Gonzales Notes Date Note Type Note [...] .................. .................. .................. .................. .................. .................. ............... Private Pilot Note From Jarad Banks: [employer] visit for female pt. Pt Australian speaking only so administrative officer was used. Pt presents complaining of discomfort relating to vaginal yeast infection. Pt was seen 5 days ago and diagnosed with yeast infection. Pt was prescribed antifungal cream but has been unable to make it to pharmacy. V/S taken as listed. Pt afebrile. Pt uncertain which pharmacy and which med was sent for her. Consulted with [facility] Dr. Doyle who prescribed antifungal cream and sent to [facility] for pt to have ENT CONSULTANT pickup. Pt education provided. .................. .................. .................. .................. .................. .................. .................. ............... Disposition: Fulfilled Magali Doyle MD [address] [place] [address],[address], [place], [address], [facility] - ANDRES RODAS 05/30/2024 23:22:53 OBGyn Episode No OBEpisode recorded.
--- OUTSIDE RECORDS SUMMARY | 2025-04-13 14:48 | XMS_ITS | Clinical Summary ---
Author Organization [address] [place] [address] Address [address] [place] [address] Phone Care Team Providers Care Assistant Associate Professor Name Role Phone Tabitha Gerard MD Primary Care Provider [phone] Allergies No known active allergies Medications ammonium lactate (LAC-HYDRIN) 12 % lotion Apply to soles of feet daily. At night wear socks to bed Active Encounters Date Type Department Care Team Description 04/04/2025 2:15 PM EDT Office Visit Orthopedic Surgery [facility] [address] [phone] Jignesh Mckeon DPM Controlled type 2 diabetes with neuropathy (CMS/HCC V24, CMS/HCC V28) (Primary Dx); Hammertoes of both feet; Arthritis of both feet; Dermatophytosis, nail 01/30/2025 2:00 PM EDT Office Visit [facility] [address] [phone] Jignesh Mckeon DPM Controlled type 2 diabetes with neuropathy ([facility]/HCC V24, CMS/HCC V28) (Primary Dx); Hammertoes of both feet; Arthritis of both feet; Dermatophytosis, nail from Last [...] - - Weight 68 kg (150 lb) 04/04/2025 2:16 PM EDT Height 165.4 cm (5' 5.12 ) 04/04/2025 2:16 PM ED T Body Mass Index 24.87 04/04/2025 2:16 PM EDT Plan of Treatment Upcoming Encounters Date Type Department Care Team (Late st Contact Info) Description 06/06/2025 2:00 PM EDT Office Visit Orthopedic Surgery - [place] 250 175 [facility] 250 [place] [address] Jignesh Mckeon DPM [address] [address] Health Maintenance Due Date Last Done Comments [...] 2024 09/18/2023, 03/16/2023, 09/24/2022, Additional history exists Diabetes: Annual Urine Albumin-Creatinine Ratio (uACR) 06/29/2024 Hypertension/CHF/CAD Annual BMP Blood Test 07/25/2024 Depression Screening 09/21/2024 Influenza Vaccine (#1) 2025 , 09/09/2023, 07/10/2022, Additional history exists Diabetes: Blood Sugar Control Test (HGBA1C) 06/02/2025 11/30/2024, 05/25/2024 DTaP,Tdap,and Td Vaccines (4 - Td or Tdap) 10/25/2025 10/25/2015, 08/31/2014, 07/13/2003 Cholesterol Screening (Lipid Panel) 12/15/2028 12/16/2023 Pneumococcal Vaccine: 50+ Years Completed 07/22/2017, 08/22/2016, 07/08/2002 Zoster Vaccines Completed 04/16/2023, 01/20, 08/31/2014 RSV Immunization Adult Patients Completed 01/01/2024 Hepatitis B Vaccines Completed 05/25/2024, [...] age to complete this topic Meningococcal B Vaccine Aged Out No l onger eligible based on patient's age to complete this topic RSV Immunization Patients Under 20 months Aged Out No longer eligible based on patient's age to complete this topic Varicella Vaccines Aged Out No longer eligible based on patient's age to complete this topic Insurance [facility] MEDICARE Member Subscriber Plan / Payer (Ef fective 2022-Present) Name:Lacey Gonzales Relation to Subscriber:Self Name:Lacey Gonzales Payer ID:[id number] Group ID:[id number] Type:Not on file Address: [place] [address] [place] [address] Care Teams Assistant Associate Professor Relationship Specialty Start Date End Date Todd, MD Tabitha [address] [place] [phone] PCP - General 02/09/24
--- OUTSIDE RECORDS SUMMARY | 2025-04-13 14:48 | XMS_ITS | Clinical Summary ---
Author Organization [facility] Address [address] [place] [id number] Phone Care Team Providers Care Blast Furnace Keeper Name Role Phone Tabitha Gerard MD Primary Care Provi benny Allergies Active Allergy Reactions Criticality Noted Date Comments Penicillin G 01/07/2018 Medications acetaminophen (TYLENOL) 650 MG CR tablet TAKE 1 TABLET BY ORAL ROUTE EVERY 8 HOURS NEEDED FOR PAIN AND/OR FEVER 4 Active apixaban (ELIQUIS) 5 mg tablet Take 1 tablet by mouth 2 (two) times a day. 4 Active atorvastatin (LIPITOR) 40 MG tablet Take 40 mg by mouth. 4 05/25/20 25 Active CALCIUM CARBONATE-VITAM IN D3 500 mg-10 mcg (400 unit) per tablet TOME 1 TABLETA POR V A ORAL DOS VECES AL D A Active carvedilol (COREG) 6.25 MG tablet TOME VINICIUS TABLETA DOS VECES AL D A CON ALIMENTO Active bisacodyl (DULCOLAX) 5 mg EC tablet TAKE 2 TABS AT NOON THE DAY BEFORE YOUR COLONOSCOPY 3 Active docusate sodium (COLACE) 100 MG capsule TOME VINICIUS C PSULA DOS VECES AL D A Active gabapentin (NEURONTIN) 300 MG capsule TOME VINICIUS CAPSULA WANG VECES AL JOSE DE JESUS 4 Active letrozole (FEMARA) 2.5 mg tablet Take 1 tablet by mouth every morning. 4 Active ipratropium (ATROVENT) 42 mcg (0.06 %) nasal spray SPRAY TO 2 SPRAYS INTO EACH NOSTRIL TWICE A DAY FOR RHINORRHEA 4 Active lisinopril (PRINIVIL,ZESTR IL) 10 MG tablet TOME VINICIUS TABLETA TODOS LOS D Active DAILY-GILSON, WITH FOLIC ACID, 400 mcg tablet TOME VINICIUS TABLETA TODOS LOS D CON ALIMENTO 4 Active sulfamethoxazol e-trimethoprim (BACTRIM DS) 800-160 mg per tablet Take 1 tablet by mouth 2 (two) times a day. 4 Active simethicone (MYLICON) 125 MG chewable tablet CHEW 1 TABLET (125 MG) EVERY 6 (SIX) HOURS IF NEEDED FOR FLATULENCE. 4 Active senna (SENOKOT) 8.6 mg tablet TAKE 2 TABLETS BY ORAL ROUTE EVERY DAY NEEDED FOR CONSTIPATION NEEDED 4 Active GAVILAX 17 gram/dose powder 17 G POR V A ORAL A DIARIO 4 Active omeprazole (PRILOSEC) 20 MG capsule TOME 1 C PSULA POR V A ORAL TODOS LOS D DESPU S DE LAS COMIDAS Active Active Problems Problem Noted Date Diagnosed Date Venous insufficiency 06/13/2024 Pain in both lower extremities 06/13/2024 Assessment & Plan (09/05/2024 4:12 PM EST): Today she is describing intermittent sensations of numbness and cramping in the bilateral lower legs which are consistently correlated with sensation of lower back pain. Her back pain as well as her leg discomfort are worse when she lays down for a long period of time, usually get better when she gets up and moves around. Tylenol helps her symptoms but does not really last very long. She did just have ABIs and duplex study done of the legs which were completely normal. She does have some known venous insufficiency, there has been some discussion of possibly getting a venous ablation done on the left side. Overall her symptoms do not really sound like a vascular issue to me at this time. Sounds like they all may be stemming from her lower back discomfort. I have asked her to follow-up with her PCP regarding her lower back pain and associated leg pain. She can follow-up here in our office in 3 months time to touch base with her primary gravel inspector Dr. Post. I would like to know if he thinks her venous insufficiency may be playing some sort of contributory role to her symptoms and if ablation may still be indicated because this is unclear to me at this time but I dont think that it is. Social History Tobacco Use Types Packs/Day Years Used Date Smoking Tobacco: Never Assessed Education Answer Date Recorded Are you interested in more education? Not on suyapa e 06/09/2024 Are you concerned about learning? Not on file 06/09/2024 No 06/09/2024 No 06/09/2024 Digital Access Answer Date Recorded No 06/09/2024 No 06/09/2024 Reliable internet access at home? Not on file 06/09/2024 Device with a working camera? Not on file Comments Unknown Sex and Gender Information Value Date Recorded Sex Assigned at Not on file Legal Sex Female 3:41 PM EDT Gender Identity Not on file Sexual Orientation Not on file Last Filed Vital Signs Vital Sign Reading Time Taken Comments Blood Pressure 124/70 09/05/2024 3:23 PM EST Pulse 64 09/05/2024 3:23 PM EST Temperature - - Respiratory Rate - - Oxygen Saturation 99% 09/05/2024 3:23 PM EST Inhaled Oxygen Concentration - - Weight 68.5 kg (151 lb) 09/05/2024 3:23 PM EST Height 162.6 cm (5' 4 ) 09/05/2024 3:23 PM EST Body Mass Index 25.92 09/05/2024 3:23 PM EST Plan of Treatment Health Maintenance Due Date Last Done Comments CREATININE LEVEL 1951 POTASSIUM LEVEL 1951 DEPRESSION SCREENING 1963 SMOKING Hx and SMOKELESS TOBACCO SCREENING 1964 HEPATITIS C SCREENING 1969 COLOGUARD 1996 COLONOSCOPY 1996 COLORECTAL CANCER SCREENING 1996 FIT TEST 1996 FOBT 1996 SIGMOIDOSCOPY 1996 VIRTUAL COLONOSCOPY 1996 ZOSTER VACCINES (1 of 2) 2001 OSTEOPOROSIS SCREENING INITI AL (ONE-TIME) 2016 PNEUMOCOCCAL VACCINES (50+ years) (2 of 2 - PCV) 07/22/2018 07/22/2017, 07/08/2002 COVID-19 VACCINE (2023-2 5 season) 2024 MAMMOGRAM 10/17/2024 10/17/2022, 02/23/2019 Adult Td,Tdap Booster 10/25/2025 10/25/2015 , 08/31/2014 RSV VACCINE (1 - 1-dose 75+ series) 2026 LIPID PANEL 12/15/2028 12/16/2023 HEPATITIS A VACCINES Aged Out No long er eligible based on patient's age to complete this topic HIB VACCINES Aged Out No longer eligi ble based on patient's age to complete this topic MENINGOCOCCAL VACCINES (ACWY) Aged Out No longer eligible based on patient's age to complete this topic MENINGOCOCCAL VACCINES (B) Aged Out N o longer eligible based on patient's age to complete this topic Medical Devices Not on file Insurance MEDICARE REPLACEMENT [employer] [id number] MEDICARE REPLACEMENT [employer] [place] [id number] MEDICARE REPLACEMENT MEDICARE REPLACEMENT MEDICARE REPLACEMENT [facility] MEDICARE REPLACEMENT [employer] [place] [id number] Care Teams Blast Furnace Keeper Relationship Specialty Start Date End Date Moultrie, Tabitha Steen MD [address] [place] [id number] PCP - General Family Medicine 06/08/24 Additional Source Comments The information contained in this document represents components of the legal health record. It is not the complete legal health record.[facility]
[2025-04-13 16:11] LABS: MANUAL DIFF FLAG NO
[2025-04-13 16:37] LABS: Hematocrit 39.9 % (37.0-47.0); Hemoglobin 12.7 g/dl (12.0-16.0); Imm Gran Abs Auto 0.03 X10*3/uL (0.00-0.03); Imm Gran Pct Auto 0.5 % (0.0-0.4); Lymphocytes Absolute Auto 1.3 X10*3/uL (1.2-4.9); Mean Corpuscular HGB Conc 31.8 g/dl (31.0-35.0); Mean Corpuscular Hemoglobin 26.6 pg (27.0-33.0); Mean Corpuscular Volume 83.6 fL (80.0-98.0); NRBC Abs Auto 0.000 X10*3/uL (0.0-0.012); NRBC Pct Auto 0.0 /100WBC (0.0-0.2); Platelet Count 253 X10*3/uL (160-400); Red Blood Count 4.77 X10*6/uL (4.20-5.50); White Blood Count 6.0 X10*3/uL (4.8-10.8)
[2025-04-13 16:38] LABS: Hemoglobin A1C 189.9981 umol/L; Total Hemoglobin (HGBA1C) 3358.6433 umol/L
[2025-04-13 16:56] LABS: Alanine Aminotransferase 19 U/L (0-31); Albumin Level 4.5 g/dL (3.5-5.0); Alkaline Phosphatase 89 U/L (39-117); Anion Gap 13 (12-20); Aspartate Amino Transferase 27 U/L (5-31); Blood Urea Nitrogen 17 mg/dL (9-16); Calcium 9.4 mg/dL (8.4-10.2); Carbon Dioxide 26 mmol/L (22-29); Chloride 104 mmol/L (96-108); Estimated Glomerular Filt Rate > 60; Microalbum/Creatinine Ratio Ur 7.5 ug/mg cr (<30); Potassium 4.4 mmol/L (3.3-5.1); Sodium 139 mmol/L (135-145); Total Protein 7.6 g/dL (6.5-8.0)
== END 2025-04-13 14:36 | disposition home or self-care (01) ==
LOC: HO.HHCL 14:35
PROVIDERS: PCP Family Medicine; Visit Provider Family Medicine
DX: E11.00 Type 2 diabetes mellitus with hyperosmolarity without nonketotic hyperglycemic-hyperosmolar coma (NKHHC) (principal); I87.8 Other specified disorders of veins; E78.5 Hyperlipidemia, unspecified
CPT/HCPCS: 36415; 80048; 80076; 82043; 82570; 83036; 84443; 85025